=== PATIENT | male | born 2000 | race Caucasian/White ===

== ENCOUNTER 2021-09-05 16:35 | Inpatient (IN) ==
[2021-09-05 17:20] LABS: Appearance Urine Clear (Clear); Bilirubin Urine Negative (Negative); Blood Urine Negative (Negative); Color Urine Dark Yellow; Glucose Urine UA Negative (Negative); Ketones Urine Trace (Negative); Leukocyte Esterase Urine Negative (Negative); Nitrite Urine Negative (Negative); Protein Urine Negative (Negative); Specific Gravity Urine 1.028 (1.000-1.030); Urobilinogen Urine Negative (Negative); pH Urine 7.5 (4.5-7.5)
[2021-09-05 17:41] LABS: Basophils # (auto) 0.01 K/uL (0-0.2); Basophils % (auto) 0.3 %; Eosinophils # (auto) 0.01 K/uL (0-0.5); Eosinophils % (auto) 0.3 %; Hematocrit (blood only) 38.1 % (42-52); Hemoglobin 13.5 g/dL (14.0-18.0); Lymphocytes # (auto) 1.01 K/uL (1.2-3.4); Lymphocytes % (auto) 30.7 %; Mean Corpuscular Hemoglobin 30.3 pg (25-34); Mean Corpuscular Hgb Conc 35.4 g/dL (32-36); Mean Corpuscular Volume 85.6 fL (80-100); Mean Platelet Volume 11.7 fL (7.4-10.4); Monocytes # (auto) 0.25 K/uL (0.11-0.59); Monocytes % (auto) 7.6 %; Neutrophils # (auto) 2.01 K/uL (1.4-6.5); Neutrophils % (auto) 61.1 %; Platelet Count 165 K/uL (130-400); RDW Coefficient of Variation 12.2 % (11.5-14.5); RDW Standard Deviation 37.9 fL (36.4-46.3); Red Blood Count 4.45 M/uL (4.7-6.1); White Blood Count 3.29 K/uL (4.8-10.8)
[2021-09-05 17:53] LABS: Amphetamines+Metham, Urine Neg (Neg); Barbiturates, Urine Neg (Neg); Benzodiazepine, Urine Neg (Neg); Cocaine, Urine Neg (Neg); MDMA (Ecstacy), Urine Neg (Neg); Methadone, Urine Neg (Neg); Opiate, Urine Neg (Neg); Phencyclidine, Urine Neg (Neg)
[2021-09-05 18:03] LABS: Albumin Level 3.9 gm/dl (3.4-5.0); BUN Creatinine Ratio 12.4 (10-20); Creatinine Clr Calc Pharmacy 134.7 ml/min; Est GFR (African American) 107.5 ml/min; Est GFR (Non-African American) 92.7 ml/min
[2021-09-05 18:05] LABS: Acetaminophen < 2 ug/ml (10-30); Salicylate < 1.7 mg/dl (2.8-20)
[2021-09-05 18:14] LABS: Albumin Globulin Ratio 1.1 (0.9-2); Bilirubin,Total 0.7 mg/dl (0.2-1); Globulin 3.7 gm/dl (2.5-4.0); Thyroid Stimulating Hormone 0.671 uIu/ml (0.300-4.500); Total Protein 7.6 gm/dl (6.4-8.2)
--- NOTE | 2021-09-05 19:18 | Emergency Department Note ---
History of Present Illness General Chief complaint: Mental Health Evaluation Time Seen by Provider: 09/05/21 16:39 History of Present Illness Provider complaint: Mental health evaluation Onset (ago): month(s) 3 20-year-old male presents emergency department for mental health evaluation. Patient is reporting that he has been having suicidal ideation since starting his sophomore year at [employer]. Patient reports he has been under tremendous amount of stress athletically and academically. Patient states he is a plan to kill himself by taking a knife that he keeps in his room and stabbing himself to or by going downtown and jumping off a parking garage. Patient states he does not see anyone for any of his mental health problems. Patient states he has a history of depression and anxiety and is originally from [facility]. Patient states he was on Prozac however it stopped helping him so he was taken off of it by his mental health professional in [place] during his jordon year of high school. Patient reports no access to guns. No drugs or alcohol. Home Medications Medication Instructions Recorded Confirmed Type No Known Home Medications 09/05/21 09/05/21 History Allergies Allergy/AdvReac Type Severity Reaction Status Date / Time No Known Allergies Allergy Unverified 09/05/21 17:13 Past Med/Surg History Medical History Anxiety Depression No pertinent family history Surgical History No pertinent past surgical history Social History Smoking Status: Never smoker Feels Safe at Home: No Review of Systems A total of 10 systems reviewed and were otherwise negative Physical Exam Vital Signs Vital Signs - 24 hr 09/05/21 16:52 09/05/21 20:14 Temperature 36.6 C Temperature Source Oral Pulse Rate 48 L Pulse Rate [Finger] 41 L Respiratory Rate 18 14 Blood Pressure 109/74 Blood Pressure [Right Arm] 125/59 L Blood Pressure Mean 85 Blood Pressure Mean [Right Arm] 81 Pulse Oximetry 100 100 Oxygen Delivery Method Room Air Sepsis Recent Fever Within 48 Hours No Sepsis New/Unexplained Change in Mental Status No Sepsis Action Taken by Nursing No Action Required Physical Exam HENT: Exam performed. - Head: Normocephalic and atraumatic. - Right Ear: External ear normal. No mastoid tenderness. - Left Ear: External ear normal. No mastoid tenderness. - Mouth/Throat: The oropharynx is clear and moist. No trismus in the jaw. No dental abscesses or uvula swelling. No oropharyngeal exudate or tonsillar abscesses. EYES: Conjunctivae and EOM are normal. Pupils are equal, round, and reactive to light. Right eye exhibits no discharge. Left eye exhibits no discharge. No scleral icterus. NECK: Normal range of motion. Neck supple. No JVD present. No spinous process tenderness present. No carotid bruit present. No rigidity. No tracheal deviation and normal range of motion present. No Brudzinski's sign and no Kernig's sign noted. CV: Bradycardic. Rate, regular rhythm, normal heart sounds and intact distal pulses. There is no peripheral edema. Palpable radial pulses bue. PULM/CHEST: Effort normal and breath sounds normal. No respiratory distress. No stridor. He has no wheezes. He has no rales. - Chest Wall: He exhibits no tenderness. ABD: The abdomen is soft. Bowel sounds are normal. He has no distension. No mass is present. There is no tenderness. There is no rebound, no guarding, no Christopher's sign and no tenderness at McBurney's point. Rovsig negative. MUSC/SKEL: Normal range of motion. There is no peripheral edema, tenderness or deformity. LYMPH: No cervical adenopathy. NEURO: He is alert and oriented to person, place, and time. He has normal strength. No cranial nerve deficit or sensory deficit. Coordination and gait normal. GCS eye subscore is 4. GCS verbal subscore is 5. GCS motor subscore is 6. Cerebellar tests wnl. SKIN: Skin is warm and dry. He is not diaphoretic. PSYCH: Patient appears depressed. Suicidal ideation. Course Course 1639: The patient was evaluated in room A8. A complete history and physical exam was performed 0: Vital signs stable. Patient medically cleared. Patient placed in observation at this time awaiting psychiatric placement evaluation. 2030: Patient accepted to 3 S. Medical Decision Making Laboratory Data Result diagrams: 09/05/21 17:19 09/05/21 17:19 Lab Results 09/05/21 09/05/21 09/05/21 Range/Units 16:40 16:40 17:08 WBC (4.8-10.8) K/uL RBC (4.7-6.1) M/uL Hgb (14.0-18.0) g/dL Hct (42-52) % MCV (80-100) fL MCH (25-34) pg MCHC (32-36) g/dL RDW Std Deviation (36.4-46.3) fL RDW Coeff of Teri (11.5-14.5) % Plt Count (130-400) K/uL MPV (7.4-10.4) fL Immature Gran % (Auto) % Neut % (Auto) % Lymph % (Auto) % Kidder % (Auto) % Eos % (Auto) % Baso % (Auto) % Neut # (Auto) (1.4-6.5) K/uL Lymph # (Auto) (1.2-3.4) K/uL Kidder # (Auto) (0.11-0.59) K/uL Eos # (Auto) (0-0.5) K/uL Baso # (Auto) (0-0.2) K/uL Immature Gran # (Auto) (0.00-0.02) K/uL Sodium (136-145) mmol/L Potassium (3.5-5.1) mmol/L Chloride (98-107) mmol/L Carbon Dioxide (21-32) mmol/L Anion Gap (3-11) BUN (7-18) mg/dl Creatinine (0.6-1.4) mg/dl Est Cr Clr Drug Dosing ml/min Est GFR ( Amer) ml/min Est GFR (Non-Af Amer) ml/min BUN/Creatinine Ratio (10-20) Glucose (70-99) mg/dl Calcium (8.5-10.1) mg/dl Total Bilirubin (0.2-1) mg/dl AST (15-37) U/L ALT (12-78) U/L Alkaline Phosphatase (45-117) U/L Total Protein (6.4-8.2) gm/dl Albumin (3.4-5.0) gm/dl Globulin (2.5-4.0) gm/dl Albumin/Globulin Ratio (0.9-2) TSH (0.300-4.500) uIu/ml Urine Color Dark Yellow Urine Appearance Clear (Clear) Urine pH 7.5 (4.5-7.5) Ur Specific Welch 1.028 (1.000-1.030) Urine Protein Negative (Negative) Urine Glucose (UA) Negative (Negative) Urine Ketones Trace H (Negative) Urine Blood Negative (Negative) Urine Nitrite Negative (Negative) Urine Bilirubin Negative (Negative) Urine Urobilinogen Negative (Negative) Ur Leukocyte Esterase Negative (Negative) Salicylates (2.8-20) mg/dl Urine Opiates Screen Neg (Neg) Ur Methadone, Qual Neg (Neg) Acetaminophen (10-30) ug/ml Urine Barbiturates Neg (Neg) Ur Phencyclidine (PCP) Neg (Neg) U Amphetamin/Meth Scrn Neg (Neg) MDMA (Ecstasy) Screen Neg (Neg) U Benzodiazepines Scrn Neg (Neg) Ur Cocaine Metabolite Neg (Neg) U Marijuana (THC) Screen Neg (Neg) Ethyl Alcohol mg/dL (0-3) mg/dl COVID-19 Eval Order Covid19 [facility] SARS-CoV-2, RNA, NAAT (NEGATIVE) 09/05/21 09/05/21 09/05/21 Range/Units 17:08 17:19 17:19 WBC 3.29 L (4.8-10.8) K/uL RBC 4.45 L (4.7-6.1) M/uL Hgb 13.5 L (14.0-18.0) g/dL Hct 38.1 L (42-52) % MCV 85.6 (80-100) fL MCH 30.3 (25-34) pg MCHC 35.4 (32-36) g/dL RDW Std Deviation 37.9 (36.4-46.3) fL RDW Coeff of Teri 12.2 (11.5-14.5) % Plt Count 165 (130-400) K/uL MPV 11.7 H (7.4-10.4) fL Immature Gran % (Auto) 0.0 % Neut % (Auto) 61.1 % Lymph % (Auto) 30.7 % Kidder % (Auto) 7.6 % Eos % (Auto) 0.3 % Baso % (Auto) 0.3 % Neut # (Auto) 2.01 (1.4-6.5) K/uL Lymph # (Auto) 1.01 L (1.2-3.4) K/uL Kidder # (Auto) 0.25 (0.11-0.59) K/uL Eos # (Auto) 0.01 (0-0.5) K/uL Baso # (Auto) 0.01 (0-0.2) K/uL Immature Gran # (Auto) 0.00 (0.00-0.02) K/uL Sodium 137 (136-145) mmol/L Potassium 4.0 (3.5-5.1) mmol/L Chloride 106 (98-107) mmol/L Carbon Dioxide 29 (21-32) mmol/L Anion Gap 2.0 L (3-11) BUN 14 (7-18) mg/dl Creatinine 1.14 (0.6-1.4) mg/dl Est Cr Clr Drug Dosing 134.7 ml/min Est GFR ( Amer) 107.5 ml/min Est GFR (Non-Af Amer) 92.7 ml/min BUN/Creatinine Ratio 12.4 (10-20) Glucose 79 (70-99) mg/dl Calcium 9.0 (8.5-10.1) mg/dl Total Bilirubin 0.7 (0.2-1) mg/dl AST 24 (15-37) U/L ALT 23 (12-78) U/L Alkaline Phosphatase 98 (45-117) U/L Total Protein 7.6 (6.4-8.2) gm/dl Albumin 3.9 (3.4-5.0) gm/dl Globulin 3.7 (2.5-4.0) gm/dl Albumin/Globulin Ratio 1.1 (0.9-2) TSH 0.671 (0.300-4.500) uIu/ml Urine Color Urine Appearance (Clear) Urine pH (4.5-7.5) Ur Specific Welch (1.000-1.030) Urine Protein (Negative) Urine Glucose (UA) (Negative) Urine Ketones (Negative) Urine Blood (Negative) Urine Nitrite (Negative) Urine Bilirubin (Negative) Urine Urobilinogen (Negative) Ur Leukocyte Esterase (Negative) Salicylates (2.8-20) mg/dl Urine Opiates Screen (Neg) Ur Methadone, Qual (Neg) Acetaminophen (10-30) ug/ml Urine Barbiturates (Neg) Ur Phencyclidine (PCP) (Neg) U Amphetamin/Meth Scrn (Neg) MDMA (Ecstasy) Screen (Neg) U Benzodiazepines Scrn (Neg) Ur Cocaine Metabolite (Neg) U Marijuana (THC) Screen (Neg) Ethyl Alcohol mg/dL (0-3) mg/dl COVID-19 Eval Order SARS-CoV-2, RNA, NAAT NEGATIVE (NEGATIVE) 09/05/21 09/05/21 Range/Units 17:19 17:19 WBC (4.8-10.8) K/uL RBC (4.7-6.1) M/uL Hgb (14.0-18.0) g/dL Hct (42-52) % MCV (80-100) fL MCH (25-34) pg MCHC (32-36) g/dL RDW Std Deviation (36.4-46.3) fL RDW Coeff of Teri (11.5-14.5) % Plt Count (130-400) K/uL MPV (7.4-10.4) fL Immature Gran % (Auto) % Neut % (Auto) % Lymph % (Auto) % Kidder % (Auto) % Eos % (Auto) % Baso % (Auto) % Neut # (Auto) (1.4-6.5) K/uL Lymph # (Auto) (1.2-3.4) K/uL Kidder # (Auto) (0.11-0.59) K/uL Eos # (Auto) (0-0.5) K/uL Baso # (Auto) (0-0.2) K/uL Immature Gran # (Auto) (0.00-0.02) K/uL Sodium (136-145) mmol/L Potassium (3.5-5.1) mmol/L Chloride (98-107) mmol/L Carbon Dioxide (21-32) mmol/L Anion Gap (3-11) BUN (7-18) mg/dl Creatinine (0.6-1.4) mg/dl Est Cr Clr Drug Dosing ml/min Est GFR ( Amer) ml/min Est GFR (Non-Af Amer) ml/min BUN/Creatinine Ratio (10-20) Glucose (70-99) mg/dl Calcium (8.5-10.1) mg/dl Total Bilirubin (0.2-1) mg/dl AST (15-37) U/L ALT (12-78) U/L Alkaline Phosphatase (45-117) U/L Total Protein (6.4-8.2) gm/dl Albumin (3.4-5.0) gm/dl Globulin (2.5-4.0) gm/dl Albumin/Globulin Ratio (0.9-2) TSH (0.300-4.500) uIu/ml Urine Color Urine Appearance (Clear) Urine pH (4.5-7.5) Ur Specific Welch (1.000-1.030) Urine Protein (Negative) Urine Glucose (UA) (Negative) Urine Ketones (Negative) Urine Blood (Negative) Urine Nitrite (Negative) Urine Bilirubin (Negative) Urine Urobilinogen (Negative) Ur Leukocyte Esterase (Negative) Salicylates < 1.7 L (2.8-20) mg/dl Urine Opiates Screen (Neg) Ur Methadone, Qual (Neg) Acetaminophen < 2 L (10-30) ug/ml Urine Barbiturates (Neg) Ur Phencyclidine (PCP) (Neg) U Amphetamin/Meth Scrn (Neg) MDMA (Ecstasy) Screen (Neg) U Benzodiazepines Scrn (Neg) Ur Cocaine Metabolite (Neg) U Marijuana (THC) Screen (Neg) Ethyl Alcohol mg/dL < 3.0 (0-3) mg/dl COVID-19 Eval Order SARS-CoV-2, RNA, NAAT (NEGATIVE) MDM Narrative Observation note Indication: Psych eval/placement Patient, with depression, anxiety was first seen at 1639 hrs and the observation time began at 1730 hrs and was necessary in order to have psych evaluation completed . Upon re-evaluation, 3 hours of observation revealed that the patien t should be admitted to 3 S. Disposition date and time September 05, [id number]. Impression & Plan Depression with suicidal ideation Discharge Plan Visit Data Chief Complaint: Mental Health Evaluation ED Provider: Artemio Randle Discharge Problem: Depression with suicidal ideation Patient Disposition: Admitted As Inpatient Discharge Instructions Interventions: ED Discharge Assessment Last Done: 09/05/21 20:22 Forms Stand Alone Forms: My [facility], Suicide Prevention Resources Prescriptions Prescriptions: No Action No Known Home Medications RF: 0 Referrals [facility] [Primary Care Provider[facility] -
[2021-09-05] MEDS ORDERED: BISMUTH SUBSALICYLATE LIQD 236 ML PO PRN (19:58)
[2021-09-05] MEDS ORDERED: SODIUM CHLORIDE 0.65% NA SOLN 45 ML (OCEAN) PRN (19:58)
[2021-09-05] MEDS ORDERED: hydrOXYzine HCl 25 MG TAB PO PRN ×2 (19:58)
[2021-09-05] MEDS ORDERED: ACETAMINOPHEN 325 MG TAB PO PRN (19:58)
[2021-09-05] MEDS ORDERED: ALUMINUM/MAGNESIUM SUSP 30 ML UDC PO PRN (19:58)
[2021-09-05] MEDS ORDERED: MAGNESIUM HYDROXIDE SUSP 30 ML UDC PO PRN (19:58)
[2021-09-06] MEDS ORDERED: MELATONIN 3 MG TAB PO PRN (11:11)
--- NOTE | 2021-09-06 11:12 | History & Physical ---
Date of Service September 06, 2021 Impression / Recommendations Impression The patient is a 20 year old with a history of depression, anxiety, and eating disorder who was admitted for worsening depression, SI with plan and restrictive eating. The patient is deemed unstable and requires psychiatric hospitalization for diagnostic clarification, safety and stabilization, medication management and development of further coping skills. Diagnostically consistent with MDD, MATTHEW, PTSD as well as atypical eating disorder. 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 Given recent weight loss and severe calorie restriction will involve hospitalist and dietary to assess if concern for refeeding syndrome and necessary cardiac monitoring. Focus will initially be on safely encouraging increased caloric intake and treatment of anorexia. Should strongly consider inpatient specialized eating disorder treatment program given the severity of his anorexia. Additionally he would benefit from starting medication to treat his depression, PTSD, and anxiety. Discussed potential medication options including mirtazapine to help with sleep and appetite but he is not interested in this nor any SSRIs nor any other medications at this time. Will continue to discuss potential medication and treatment options. Encouragingly he is desiring of treatment for his eating disorder and willing to engage in therapy. (1) Atypical eating disorder: (2) Depression with suicidal ideation: (3) Anxiety: (4) MDD (major depressive disorder), recurrent episode, moderate: (5) Bradycardia: (6) Post traumatic stress disorder (PTSD): 09/06/21: -Consult hospitalist, dietary due to concern for refeeding syndrome and bradycardia -EKG -Vitals qshift -monitor Is & Os -blind daily weights -melatonin 3 mg qhs prn for sleep which he consented to -Diet calorie limit 1200 roberto per day, goal of 1-2 L fluid per day per hospitalist recommendations -Spoke with his team physician, Dr. Tabares, and team athletic monitor Kirk Garzon who he provided ROIs for 09/05/21: The patient was admitted to the [facility] ([facility] mental health unit) on q15 min checks (behavioral with suicide precautions) for safety. The patient will participate in group, recreational, and milieu therapies and will be offered additional individual and family sessions as clinically appropriate. Inventory Assets Strengths: motivated for treatment, full-time student Needs: outpatient providers, stabilization, medication management, increased coping skills Risk Factors Assessment Male: Yes : No Do You Have Access To A Gun?: No Health Problems: No Mental Health Diagnoses: Yes Substance Use Disorders: No Previous Attempt: No Family History of Suicide: Yes Previous Psychiatric Hospitalization: No Hopelessness: Yes Protective Factors Assessment Employed: No Stable Relationships: Yes Supportive Family: Yes Psychiatric History Identifying Data BHAVESH BENITEZ is a 20-year-old man and [employer] sophmore on an athletic scholarship who currently lives on campus, has a history of depression and anxiety, and was admitted on 09/05/21 19:58 on a 201 voluntary commitment for worsening depression, weight loss and SI with plans of jumping from a parking garage or stabbing himself with a knife. Chief Complaint "My mental health has been deteriorating faster than usual". History of Present Illness Bhavesh presents for psychiatric admission for worsening depression, SI with plans and restrictive eating. Bhavesh describes a long history of depression, starting his sophomore year of high school, with intermittent SI starting at that time as well. 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 Last year SI occurred about every other day with thoughts lasting about 30 min to 1 hour. At that time he would often think about jumping from a parking garage near his on campus apartment and would walk to the top every other day to contemplate this but felt he had enough reasons to live to not act on these suicidal urges. Starting this summer he feels his depression and SI has intensified in the context of feeling more pressure from football, particularly in regard to needing to gain more weight. He notes that at one point he was told he could be kicked off the team if he could not gain enough weight and this caused significant stress as he would be financially unable to continue his education if this occurred. At that time he at acutely worsening SI and that night got out a knife and was pacing and considering acting on his SI. Since June he's been having SI "all day" with thoughts of dying by jumping from the parking garage or stabbing himself in the stomach or chest with a knife he keeps next to his bed. He stopped going to the parking garage as he feared he may act on his SI and he notes increased fatigue making it harder to want to walk there. He endorses current depressive symptoms of low mood, hopelessness, helplessness, worthlessness, decreased sleep, decreased energy, has been feeling more hungry due to increased nutritional restriction, and decreased interest. He does still enjoy making and listening to music. In terms of his eating he notes that is a big concern and that he recognizes he needs to eat more but weight gain or increased nutritional intake causes him significant distress. He recalls always wanting to eat healthy and categorizing foods as "good or bad" but that he has become more strict over time. After starting at [employer] he was able to gain some weight as he put on muscle and eat more but then he felt guilt and hated the way his body looked causing him to begin purging and doing excessive exercise on top of his twice daily athletic training. He notes that athletic trainers and others with the football program noticed he was losing weight and he deflected by saying he was going Vegan as a way to restrict and feel in control. Over the last two months he's been restricting more and identifies a goal of eating less than 1,000 calories per day. His goal day would be to eat only applesauce which he does on some days. Most days he estimates he has been consuming between 1,200-1,400 calories consisting of 4 granola bars and 1-2 yogurts. On these days he will then exercise excessively by running after evening practice to try to burn off extra calories. No laxative use nor any current purging. He denies feeling dizzy or weak at practice but has experienced dizziness when standing up suddenly at times. He would like to change his eating but feels powerless to do so as it makes him feel horrible about how he looks and feels he still needs to lose more weight. He is estimated to have lost between 40-50 lbs over the last 3 months. He also endorses body obsessions such as having to suck in his stomach multiple times until he appears think enough in the mirror to be able to leave the apartment each day. He identifies strong concerns about body image and low self- esteem. Psychiatric ROS notable for: possible hypomanic episodes-history of brief per iods of elevated mood (2-3 days) during high school when he required little sleep, had increased energy, was more talkative, had increased sex drive, and got in trouble in class for interrupting or talking more ut after a few days he would "crash" and sleep a lot and never required hospitalization or had legal consequences. Hx trauma and PTSD symptoms of flashbacks, night-terrors, avoidance and hypervigilance. Endorses anxiety, history panic attack last a few months ago. No hx OCD. No hx psychosis. Past Psychiatric History Previous Psych History: depression, anxiety Current Psychiatric Diagnosis: MDD Outpatient Services: had [facility] intake, was set up to see [facility] program and local therapist focused on eating disorders Previous Psych Admissions: none Do You Have Access To A Gun?: No History of Previous Suicide Attempt: No Describe Attempts in the Past: None Past Medication Trials: fluoxetine (unknown dose) for 3-4 months in highschool. M[place]leary it didn't help mood and made him feel "numb" Past Head Trauma/Neuro History History of Concussion/Seizure: No (plays football so possibilty for concussions) Allergies Allergy/AdvReac Type Severity Reaction Status Date / Time No Known Allergies Allergy Unverified 09/05/21 17:13 Home Medications Medication Instructions Recorded Confirmed Type No Known Home Medications 09/05/21 09/05/21 History Family History Family History of: Depression (maternal aunt and sister) and Suicide Completion (maternal aunt) Alcohol History Hx of Alcohol Use Over the Past 12 Months: No AUDIT Total Score: 0 Smoking Use Have You Smoked or Used Tobacco Products in the Last 30 Days: No Smoking Status: Never smoker Substance History Hx of Prescription Med Misuse Over the Past 12 Months: No Hx of Over the Counter Med Misuse Over the Past 12 Months: No Hx of Inhalent Misuse Over the Past 12 Months: No Hx of Organic Substance Use Over the Past 12 Months: No Hx of Illegal Substances/Street Drug Use Over Past 12 Months: No Problems as a Result of Past Substance Use: None Identified Personal History Living Arrangements: Apartment Childhood: raised in [place], youngest of 5 siblings, did well academically in school. Parents -father lives in [place] and mother lives in [place]. He feels his mother and two of his sisters are supports for him. Highest Grade Completed: High School Graduate Highest Grade Completed Comment: s Employment Status: Student Marital Status: Single Beliefs That Will Affect Care: None Current Legal Problems: No Hx Legal Problems: No Hx Traumatic Life Events: Yes Patient History Medical History (Updated 09/06/21 @ 17:01 by Melida Shipley MD) Anxiety Depression Depression with suicidal ideation MDD (major depressive disorder), recurrent episode, moderate No pertinent family history Surgical History No pertinent past surgical history Social History Smoking Status: Never smoker Preferred Language: Botswanan Communication Ability: Effective [employer] Required: No Beliefs That Will Affect Care: None Feels Safe at Home: No Assistive Devices: None Review of Systems Review of Systems: All systems reviewed & are unremarkable except as noted in HPI & below Physical Exam Psychiatric: Orientation: alert and oriented x 3 Apperance: appropriately dressed and appropriately groomed Eye Contact: good eye contact Motor Behavior: steady gait and station and no abnormal motor movements Speech: normal rate/rhythm/volume of speech Affect: + flat affect Mood: + depressed mood and + anxious mood Thought Process: goal directed thought process Thought Content: reality based without delusions Suicidal Thoughts: denies suicidal intent; + reports suicidal thoughts and + reports suicidal plan Homicidal Thoughts: denies homicidal thoughts Hallucinations: no auditory hallucinations and no visual hallucinations Cognition: recent memory grossly intact, remote memory grossly intact, attention grossly intact and language grossly intact Estimated Intelligence: consistent with education level Insight: + fair insight Judgement: + fair judgement Vital Signs (Past 24 Hours): Last Vital Signs Temp 36.8 C 09/06/21 07:04 Pulse 34 L 09/06/21 07:04 Resp 17 09/06/21 07:04 BP 98/56 L 09/06/21 07:06 Pulse Ox 99 09/06/21 07:04 Exam Statement: A physical exam was performed in the ED by Dr. Randle for the purposes of medical clearance. I accept that physical as correct and adequate for the purposes of the inpatient physical exam. Results & Data (U) Laboratory Results Laboratory Results - last 24 hr 09/05/21 09/05/21 09/05/21 16:40 16:40 17:08 WBC RBC Hgb Hct MCV MCH MCHC RDW Std Deviation RDW Coeff of Teri Plt Count MPV Immature Gran % (Auto) Neut % (Auto) Lymph % (Auto) Ashley % (Auto) Eos % (Auto) Baso % (Auto) Neut # (Auto) Lymph # (Auto) Ashley # (Auto) Eos # (Auto) Baso # (Auto) Immature Gran # (Auto) Sodium Potassium Chloride Carbon Dioxide Anion Gap BUN Creatinine Est Cr Clr Drug Dosing Est GFR ( Amer) Est GFR (Non-Af Amer) BUN/Creatinine Ratio Glucose Calcium Total Bilirubin AST ALT Alkaline Phosphatase Total Protein Albumin Globulin Albumin/Globulin Ratio TSH Urine Color Dark Yellow Urine Appearance Clear Urine pH 7.5 Ur Specific Brayton 1.028 Urine Protein Negative Urine Glucose (UA) Negative Urine Ketones Trace H Urine Blood Negative Urine Nitrite Negative Urine Bilirubin Negative Urine Urobilinogen Negative Ur Leukocyte Esterase Negative Salicylates Urine Opiates Screen Neg Ur Methadone, Qual Neg Acetaminophen Urine Barbiturates Neg Ur Phencyclidine (PCP) Neg U Amphetamin/Meth Scrn Neg MDMA (Ecstasy) Screen Neg U Benzodiazepines Scrn Neg Ur Cocaine Metabolite Neg U Marijuana (THC) Screen Neg Ethyl Alcohol mg/dL COVID-19 Eval Order Covid19 IDNow atMMAC SARS-CoV-2, RNA, NAAT 09/05/21 09/05/21 09/05/21 17:08 17:19 17:19 WBC 3.29 L RBC 4.45 L Hgb 13.5 L Hct 38.1 L MCV 85.6 MCH 30.3 MCHC 35.4 RDW Std Deviation 37.9 RDW Coeff of Teri 12.2 Plt Count 165 MPV 11.7 H Immature Gran % (Auto) 0.0 Neut % (Auto) 61.1 Lymph % (Auto) 30.7 Ashley % (Auto) 7.6 Eos % (Auto) 0.3 Baso % (Auto) 0.3 Neut # (Auto) 2.01 Lymph # (Auto) 1.01 L Ashley # (Auto) 0.25 Eos # (Auto) 0.01 Baso # (Auto) 0.01 Immature Gran # (Auto) 0.00 Sodium 137 Potassium 4.0 Chloride 106 Carbon Dioxide 29 Anion Gap 2.0 L BUN 14 Creatinine 1.14 Est Cr Clr Drug Dosing 134.7 Est GFR ( Amer) 107.5 Est GFR (Non-Af Amer) 92.7 BUN/Creatinine Ratio 12.4 Glucose 79 Calcium 9.0 Total Bilirubin 0.7 AST 24 ALT 23 Alkaline Phosphatase 98 Total Protein 7.6 Albumin 3.9 Globulin 3.7 Albumin/Globulin Ratio 1.1 TSH 0.671 Urine Color Urine Appearance Urine pH Ur Specific Brayton Urine Protein Urine Glucose (UA) Urine Ketones Urine Blood Urine Nitrite Urine Bilirubin Urine Urobilinogen Ur Leukocyte Esterase Salicylates Urine Opiates Screen Ur Methadone, Qual Acetaminophen Urine Barbiturates Ur Phencyclidine (PCP) U Amphetamin/Meth Scrn MDMA (Ecstasy) Screen U Benzodiazepines Scrn Ur Cocaine Metabolite U Marijuana (THC) Screen Ethyl Alcohol mg/dL COVID-19 Eval Order SARS-CoV-2, RNA, NAAT NEGATIVE 09/05/21 09/05/21 17:19 17:19 WBC RBC Hgb Hct MCV MCH MCHC RDW Std Deviation RDW Coeff of Teri Plt Count MPV Immature Gran % (Auto) Neut % (Auto) Lymph % (Auto) Ashley % (Auto) Eos % (Auto) Baso % (Auto) Neut # (Auto) Lymph # (Auto) Ashley # (Auto) Eos # (Auto) Baso # (Auto) Immature Gran # (Auto) Sodium Potassium Chloride Carbon Dioxide Anion Gap BUN Creatinine Est Cr Clr Drug Dosing Est GFR ( Amer) Est GFR (Non-Af Amer) BUN/Creatinine Ratio Glucose Calcium Total Bilirubin AST ALT Alkaline Phosphatase Total Protein Albumin Globulin Albumin/Globulin Ratio TSH Urine Color Urine Appearance Urine pH Ur Specific Brayton Urine Protein Urine Glucose (UA) Urine Ketones Urine Blood Urine Nitrite Urine Bilirubin Urine Urobilinogen Ur Leukocyte Esterase Salicylates < 1.7 L Urine Opiates Screen Ur Methadone, Qual Acetaminophen < 2 L Urine Barbiturates Ur Phencyclidine (PCP) U Amphetamin/Meth Scrn MDMA (Ecstasy) Screen U Benzodiazepines Scrn Ur Cocaine Metabolite U Marijuana (THC) Screen Ethyl Alcohol mg/dL < 3.0 COVID-19 Eval Order SARS-CoV-2, RNA, NAAT Current Inpatient Medications Current Inpatient Medications: Current Inpatient Medications Acetaminophen (Acetaminophen 325 Mg Tab) 650 mg PO Q4H PRN PRN Reason: Headache or Minor Fever Stop: 10/05/21 19:57 Al Hydrox/Mg Hydrox/Simethicone (Aluminum/Magnesium Susp 30 Ml Udc) 30 ml PO Q4H PRN PRN Reason: GI Upset Stop: 10/05/21 19:57 Bismuth Subsalicylate (Bismuth Subsalicylate Liqd 236 Ml) 15 ml PO PRN PRN PRN Reason: Loose Stool Stop: 10/05/21 19:57 Fish Oil (Panther-3 (Purified Fish Oil) 1 Gm Cap) 1 gm PO QAM GLORIA Stop: 10/07/21 08:59 Hydroxyzine HCl (Hydroxyzine Hcl 25 Mg Tab) 50 mg PO HSZ PRN PRN Reason: Insomnia Stop: 10/05/21 19:57 Hydroxyzine HCl (Hydroxyzine Hcl 25 Mg Tab) 25 mg PO Q4H PRN PRN Reason: Anxiety Stop: 10/05/21 19:57 Magnesium Hydroxide (Magnesium Hydroxide Susp 30 Ml Udc) 30 ml PO DAILY PRN PRN Reason: Constipation Stop: 10/05/21 19:57 Melatonin (Melatonin 3 Mg Tab) 3 mg PO HS PRN PRN Reason: Sleep Stop: 10/06/21 11:10 Sodium Chloride (Sodium Chloride 0.65% Na Soln 45 Ml ([place])) 1 - 2 sprays NA PRN PRN PRN Reason: Nasal Dryness/Congestion Stop: 10/05/21 19:57
[2021-09-06] MEDS ORDERED: CEROVITE ADV FORMULA TAB PO SCH (12:00)
[2021-09-06 13:27] LABS: Magnesium 2.4 mg/dl (1.8-2.4); Phosphorus 2.9 mg/dl (2.5-4.9)
[2021-09-06] MEDS: THIAMINE HCL 100 MG TAB PO SCH ×2 (14:01→20:06)
--- NOTE | 2021-09-06 14:03 | Electrocardiogram Report ---
Test Reason : Blood Pressure : / mmHG Vent. Rate : 038 BPM Atrial Rate : 038 BPM P-R Int : 132 ms QRS Dur : 102 ms QT Int : 522 ms P-R-T Axes : 087 084 048 degrees QTc Int : 414 ms Marked sinus bradycardia Abnormal ECG No previous ECGs available Confirmed by Clemente Bruno ([id number] on 09/06/2021 2:02:32 PM Referred By: REFERRED SELF Confirmed By:Josse Bruno
--- NOTE | 2021-09-06 14:08 | Hospitalist Consultation ---
Date of Consultation September 06, 2021 Assessment & Plan (1) Disordered eating: DX and evaluation defer to psych - do support inpatient therapy for such - As above- 12KCAL/KG/24 hours of intake- This would be 1128 KCals per day - support with Thiamine 200mg PO BID- can increase dose and frequency to TID as needed - K, MG, PO4, Glucose monitoring- currently all stable - Notify Hospitalist director of flight operations for any encephalopathy and/or abnormal electrolytes - ECG daily - Trace Ketones in urine - B12/Folate/Iron studies added in morning labs with electrolytes (2) Bradycardia: As above- likely normally in the lower range but this rate is likely cu rrently compounded by eating disorder - asymptomatic- as above will likely increase with nutritional intake (3) Depression with suicidal ideation: Defer DX and therapy to psych - do feel that with this DX and eating disorder that he would benefit staying on psych unit for support and calorie counts (4) Abnormal weight loss: As above- support, calorie counts, intake monitoring in supportive care environment - follow - refeeding risk as outlined above (5) Severe protein-calorie malnutrition: (6) Leukopenia: (7) Left ventricular dilatation: Supervising Physician Co-Signing Physician Notes Attending Attestation & Consult Note - Pt seen & examined, chart reviewed, care plan d/w ARABELLA Murillo. I agree w/ the de la garza components of his documentation. Pleasant 20yo AA male admitted to the MHU at [facility] due to major depression with suicidal ideation. Following admission it has become apparent that he suffers from anorexia. He has severely restricted his diet in the last few months leading to 20-25 pounds of weight loss. During his time in the MHU he has been noted to have HRs in the 30s at rest. He c/o dizziness/lightheadedness with blurry vision when he stands. Denies cp, dyspnea, palpitations or prior syncope. PMH/PSH/allergies/meds/sochx/famhx - reviewed Vitals - orthostatic BPs ++; bradycardic with HRs 30s; o2 sats wnl; RR wnl; temp wnl gen - very tall, thin, muscle wasting of facial muscles mouth - MM pasty neck - no JVD heart - caty, s1 s2, 1/6 KAROL RUSB; radial pulses 2+ b/l lungs - CTA b/l abd - soft NT ND BS+ ext - no edema, pulses 2+ b/l labs reviewed EKG reviewed A/P: 1. MDD with suicidal ideation 2. Anorexia 3. Severe protein calorie malnutrition 4. Severe sinus bradycardia 5. Orthostasis 6. Leukopenia 7. Echo with preserved EF but dilated LV (mild) 8. At risk of refeeding syndrome MVI, thiamine supplementation Nutrition consult Check Fe studies, B12, folate, 25-OH vit D Mild cardiomyopathy - 2nd to #2 ?? Thiamine def? Post-viral? other? 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 Patient with past medical history of depression and suicidal ideations, which is why he is now admitted to the Psych unit for support. Patient upon his intake evaluation it was noted that he was avoiding/limiting his nutrition intake. His admission ECG has his HR in 30s with QTC of 414. Patient was evaluated in the psych unit. Reviewing the patient history with him is significant for weight loss of 20 pounds over the last month, and over the past 2 months he has been restricting his eating. His dietary recall for the past 2 weeks he endorses 4 granola bars, and 2 yogurts. He continues to practice and do school work- he does get dizzy when standing for a period of time and has some periods of vision getting fuzzy without any visual field deficits or tunnel vision. He denies any syncope. The patient BMI is 24, and is mostly lean muscle mass. The patient denies any eating habits of binging and/or purging. The patient's eating that he is expressing is concerning for underlying disease. The patient states that he is struggling with school, athletics, and body image and this is why he is not eating. He currently feels safe and that his suicidal ideations are gone, and he is hungry and is interested in support at this time. Recs: With his bradycardia I would expect his HR to be in the 50-60s with age and athleticism, however this is also compounded by his eating habits and likely body ability to conserve energy. Will obtain ECHO to rule out any MVP as this may occur in prolonged anorexia. No murmur or split heart sounds heard. His HR should gradually increase with psychological support and monitored caloric intake and calorie counts. Do not feel removing him from supportive environment for telemetry monitoring will provide any benefit at this time unless ECHO reveals MVP. Will recommend restricted KCALs to 12Kcal/KG/24 hours for the first 48-72 hours and then increase gradually to 15-18-20. Add Thiamine, MVI, will monitor his electrolytes daily, for refeeding syndrome. I agree with attempting to inpatient support at eating disorder center if continues to struggle. Humphrey is not vaccinated and his COVID test on admssion is: NEGATIVE Allergies Allergy/AdvReac Type Severity Reaction Status Date / Time No Known Allergies Allergy Unverified 09/05/21 17:13 Home Medications Medication Instructions Recorded Confirmed Type No Known Home Medications 09/05/21 09/05/21 History Patient History Medical History (Updated 09/06/21 @ 21:02 by Óscar Paredes) Anxiety Depression Depression with suicidal ideation MDD (major depressive disorder), recurrent episode, moderate No pertinent family history Surgical History No pertinent past surgical history Family History (Updated 09/06/21 @ 20:51 by Óscar Paredes) Other No pertinent family history Social History (Updated 09/06/21 @ 20:51 by Óscar Paredes) Smoking Status: Never smoker Preferred Language: Afghan Communication Ability: Effective Bandage Wrapping Machine Operator Required: No Beliefs That Will Affect Care: None marital status: Single current occupational status: student other: [employer] student; plays on football team Feels Safe at Home: No Assistive Devices: None Review of Systems Review of Systems: REVIEW OF SYSTEMS: Constitutional: No fever, sweats or chills Eyes: (+) fuzzy vision with stress, No diplopia, or visual field deficits ENT: normal hearing, no trouble swallowing Respiratory: No cough, sputum, dyspnea at rest or on exertion Cardiovascular: (+) dizziness when standing long time, No chest pain, tightness or palpitations Abdomen: No pain, nausea, vomiting, diarrhea or constipation Musculoskeletal: No joint pain, calf pain, swelling Neurologic: No weakness, numbness/tingling, or balance problems Psychiatric: No anxiety or depression Skin: No rash or itch Physical Exam Physical Exam: PHYSICAL EXAM: General: awake, alert, no apparent distress, calm and cooperative Head: Normocephalic, atraumatic ENT: PERRL, EOMI, no pharyngeal exudate, mucous membranes dry Neuro: AAO x 3, speech clear and appropriate, strength intact bilaterally 5/5, sensation intact and equal all extremities and dermatomes, Chest: equal rise and fall of the chest, no accessory muscle use, no heaves or thrills, Clear to auscultation, on room air, Cardiac: Regular rate and rhythm, slow HR- checked with vitals machine HR 35, skin warm dry, cap refill <3 seconds, peripheral pulses +2 no JVD, no murmur, no edema GI: NABS x 4 quadrants, soft, nontender to palpation, no rebound, guarding or tenderness : Spontaneously voiding, no pain, no CVA tenderness, Extremities: Normal inspection, no peripheral edema or erythema, calfs nontender to palpation, nails appear brittle Psych: quiet but appropriate and does laugh and show appropriate emotion and concern Skin: no rash or erythema Results & Data Results & Data ([facility]) Vital Signs (Past 12 Hours) Vital Signs Temp Pulse Resp BP Pulse Ox 09/06/21 07:06 98/56 L 09/06/21 07:04 36.8 C 34 L 17 103/60 99 Laboratory Results Abnormal lab results 09/05/21 09/05/21 09/05/21 Range/Units 16:40 17:19 17:19 WBC 3.29 L (4.8-10.8) K/uL RBC 4.45 L (4.7-6.1) M/uL Hgb 13.5 L (14.0-18.0) g/dL Hct 38.1 L (42-52) % MPV 11.7 H (7.4-10.4) fL Lymph # (Auto) 1.01 L (1.2-3.4) K/uL Anion Gap 2.0 L (3-11) Urine Ketones Trace H (Negative) Salicylates (2.8-20) mg/dl Acetaminophen (10-30) ug/ml 09/05/21 Range/Units 17:19 WBC (4.8-10.8) K/uL RBC (4.7-6.1) M/uL Hgb (14.0-18.0) g/dL Hct (42-52) % MPV (7.4-10.4) fL Lymph # (Auto) (1.2-3.4) K/uL Anion Gap (3-11) Urine Ketones (Negative) Salicylates < 1.7 L (2.8-20) mg/dl Acetaminophen < 2 L (10-30) ug/ml Medications Administered Multivitamins/Minerals (Cerovite Adv Formula Tab) 1 tab PO QAM GLORIA Stop: 10/06/21 11:59 Last Admin: 09/06/21 14:01 Dose: 1 tab Documented by: [id number] Thiamine HCl (Thiamine Hcl 100 Mg Tab) 200 mg PO BID [facility] Stop: 10/06/21 11:59 Last Admin: 09/06/21 14:01 Dose: 200 mg Documented by: [id number] ECG Additional Comments: Vent. Rate : 038 BPM Atrial Rate : 038 BPM P-R Int : 132 ms QRS Dur : 102 ms QT Int : 522 ms P-R-T Axes : 087 084 048 degrees QTc Int : 414 ms Marked sinus bradycardia Abnormal ECG No previous ECGs available PG Care Time/CCT Total # of Minutes Spent Total Time Spent with Patient: Total time spent is greater than 50% in coordination of care (as documented) at patient's floor/unit and/or counseling patient: Coding Level of Care Code 95279 Inpt Consult Level 5 Diagnoses Disordered eating F50.9 Bradycardia R00.1 Depression with suicidal ideation F32.A; R45.851 Abnormal weight loss R63.4 Severe protein-calorie malnutrition E43 Leukopenia D72.819 Left ventricular dilatation I51.7
--- NOTE | 2021-09-06 16:38 | XCELERA ---
[id number]
[2021-09-06 18:24] LABS: BUN Creatinine Ratio 14.6 (10-20); Calcium 9.3 mg/dl (8.5-10.1); Creatinine Clr Calc Pharmacy 118.2 ml/min; Est GFR (African American) 91.7 ml/min; Est GFR (Non-African American) 79.1 ml/min; Magnesium 2.3 mg/dl (1.8-2.4)
--- NOTE | 2021-09-06 19:53 | Discharge Summary ---
Date of Service September 06, 2021 History of Present Illness Bhavesh presents for psychiatric admission for worsening depression, SI with plans and restrictive eating. Bhavesh describes a long history of depression, starting his sophomore year of high school, with intermittent SI starting at that time as well. 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 Last year SI occurred about every other day with thoughts lasting about 30 min to 1 hour. At that time he would often think about jumping from a parking garage near his on campus apartment and would walk to the top every other day to contemplate this but felt he had enough reasons to live to not act on these suicidal urges. Starting this summer he feels his depression and SI has intensified in the context of feeling more pressure from football, particularly in regard to needing to gain more weight. He notes that at one point he was told he could be kicked off the team if he could not gain enough weight and this caused significa nt stress as he would be financially unable to continue his education if this occurred. At that time he at acutely worsening SI and that night got out a knife and was pacing and considering acting on his SI. Since June he's been having SI "all day" with thoughts of dying by jumping from the parking garage or stabbing himself in the stomach or chest with a knife he keeps next to his bed. He stopped going to the parking garage as he feared he may act on his SI and he notes increased fatigue making it harder to want to walk there. He endorses current depressive symptoms of low mood, hopelessness, helplessness, worthlessness, decreased sleep, decreased energy, has been feeling more hungry due to increased nutritional restriction, and decreased interest. He does still enjoy making and listening to music. In terms of his eating he notes that is a big concern and that he recognizes he needs to eat more but weight gain or increased nutritional intake causes him significant distress. He recalls always wanting to eat healthy and categorizing foods as "good or bad" but that he has become more strict over time. After starting at [employer] he was able to gain some weight as he put on muscle and eat more but then he felt guilt and hated the way his body looked causing him to begin purging and doing excessive exercise on top of his twice daily athletic training. He notes that athletic trainers and others with the football program noticed he was losing weight and he deflected by saying he was going Vegan as a way to restrict and feel in control. Over the last two months he's been restricting more and identifies a goal of eating less than 1,000 calories per day. His goal day would be to eat only applesauce which he does on some days. Most days he estimates he has been consuming between 1,200-1,400 calories consisting of 4 granola bars and 1-2 yogurts. On these days he will then exercise excessively by running after evening practice to try to burn off extra calories. No laxative use nor any current purging. He denies feeling dizzy or weak at practice but has experienced dizziness when standing up suddenly at times. He would like to change his eating but feels powerless to do so as it makes him feel horrible about how he looks and feels he still needs to lose more weight. He is estimated to have lost between 40-50 lbs over the last 3 months. He also endorses body obsessions such as having to suck in his stomach multiple times until he appears think enough in the mirror to be able to leave the apartment each day. He identifies strong concerns about body image and low self-esteem. Psychiatric ROS notable for: possible hypomanic episodes-history of brief periods of elevated mood (2-3 days) during high school when he required little sleep, had increased energy, was more talkative, had increased sex drive, and got in trouble in class for interrupting or talking more ut after a few days he would "crash" and sleep a lot and never required hospitalization or had legal co nsequences. Hx trauma and PTSD symptoms of flashbacks, night-terrors, avoidance and hypervigilance. Endorses anxiety, history panic attack last a few months ago. No hx OCD. No hx psychosis. Physical Exam Vital Signs (Past 24 Hours) Last Vital Signs Temp 36.8 C 09/06/21 07:04 Pulse 59 L 09/06/21 17:46 Resp 18 09/06/21 17:46 BP 107/61 09/06/21 17:46 Pulse Ox 100 09/06/21 17:46 See admission H&P and DOD summary. Principal Diagnosis Major Depressive Disorder, Atypical Eating Disorder Psychiatric Data Patient was admitted on the evening of 09/05/21 for depression with SI. On morning of admission assessment, 09/06/21, he was bradycardic and extent of weight loss and recent caloric restriction raised concerns for potential refeeding syndrome and cardiac arrhythmias. Hospitalist service was consulted and following cardiac echo determination was made that patient requires telemetry monitoring so he was transferred to the medical service on the evening on 09/06/21. He remains in need of inpatient psychiatric hospitalization once he is medically stabilized. Day of Discharge Assessment Taken from H&P assessment 8 hours ago: Orientation: alert and oriented x 3 Apperance: appropriately dressed and appropriately groomed Eye Contact: good eye contact Motor Behavior: steady gait and station and no abnormal motor movements Speech: normal rate/rhythm/volume of speech Affect: + flat affect Mood: + depressed mood and + anxious mood Thought Process: goal directed thought process Thought Content: reality based without delusions Suicidal Thoughts: denies suicidal intent; + reports suicidal thoughts and + reports suicidal plan Homicidal Thoughts: denies homicidal thoughts Hallucinations: no auditory hallucinations and no visual hallucinations Cognition: recent memory grossly intact, remote memory grossly intact, attention grossly intact and language grossly intact Estimated Intelligence: consistent with education level Insight: + fair insight Judgement: + fair judgement Transition of Care Transition Of Care Record: was reviewed with the patient Advance Directives Advance Directives Information Provided: Yes Advance Directives: No Mental Health Advance Directive: No Advance Directives on File: No Living Will: No Power of Key Cutter: No Advance Directives Reason:: Declines as Mental Health Visit. Risk Factors Assessment Male: Yes : No Do You Have Access To A Gun?: No Health Problems: No Mental Health Diagnoses: Yes Substance Use Disorders: No Previous Attempt: No Family History of Suicide: Yes Previous Psychiatric Hospitalization: No Hopelessness: Yes Protective Factors Assessment Employed: No Stable Relationships: Yes Supportive Family: Yes Discharge Data Consultations 09/06/21 11:08 Consult Nutrition Routine 09/06/21 14:25 Consult Hospitalist Routine Lab Results 09/05/21 09/05/21 09/05/21 16:40 16:40 17:08 WBC RBC Hgb Hct MCV MCH MCHC RDW Std Deviation RDW Coeff of Teri Plt Count MPV Immature Gran % (Auto) Neut % (Auto) Lymph % (Auto) [place] % (Auto) Eos % (Auto) Baso % (Auto) Neut # (Auto) Lymph # (Auto) [place] # (Auto) Eos # (Auto) Baso # (Auto) Immature Gran # (Auto) Sodium Potassium Chloride Carbon Dioxide Anion Gap BUN Creatinine Est Cr Clr Drug Dosing Est GFR ( Amer) Est GFR (Non-Af Amer) BUN/Creatinine Ratio Glucose Calcium Phosphorus Magnesium Total Bilirubin AST ALT Alkaline Phosphatase Total Protein Albumin Globulin Albumin/Globulin Ratio TSH Urine Color Dark Yellow Urine Appearance Clear Urine pH 7.5 Ur Specific [place] 1.028 Urine Protein Negative Urine Glucose (UA) Negative Urine Ketones Trace H Urine Blood Negative Urine Nitrite Negative Urine Bilirubin Negative Urine Urobilinogen Negative Ur Leukocyte Esterase Negative Salicylates Urine Opiates Screen Neg Ur Methadone, Qual Neg Acetaminophen Urine Barbiturates Neg Ur Phencyclidine (PCP) Neg U Amphetamin/Meth Scrn Neg MDMA (Ecstasy) Screen Neg U Benzodiazepines Scrn Neg Ur Cocaine Metabolite Neg U Marijuana (THC) Screen Neg Ethyl Alcohol mg/dL COVID-19 Eval Order Covid19 [facility] SARS-CoV-2, RNA, NAAT 09/05/21 09/05/21 09/05/21 17:08 17:19 17:19 WBC 3.29 L RBC 4.45 L Hgb 13.5 L Hct 38.1 L MCV 85.6 MCH 30.3 MCHC 35.4 RDW Std Deviation 37.9 RDW Coeff of Teri 12.2 Plt Count 165 MPV 11.7 H Immature Gran % (Auto) 0.0 Neut % (Auto) 61.1 Lymph % (Auto) 30.7 [place] % (Auto) 7.6 Eos % (Auto) 0.3 Baso % (Auto) 0.3 Neut # (Auto) 2.01 Lymph # (Auto) 1.01 L [place] # (Auto) 0.25 Eos # (Auto) 0.01 Baso # (Auto) 0.01 Immature Gran # (Auto) 0.00 Sodium 137 Potassium 4.0 Chloride 106 Carbon Dioxide 29 Anion Gap 2.0 L BUN 14 Creatinine 1.14 Est Cr Clr Drug Dosing 134.7 Est GFR ( Amer) 107.5 Est GFR (Non-Af Amer) 92.7 BUN/Creatinine Ratio 12.4 Glucose 79 Calcium 9.0 Phosphorus Magnesium Total Bilirubin 0.7 AST 24 ALT 23 Alkaline Phosphatase 98 Total Protein 7.6 Albumin 3.9 Globulin 3.7 Albumin/Globulin Ratio 1.1 TSH 0.671 Urine Color Urine Appearance Urine pH Ur Specific [place] Urine Protein Urine Glucose (UA) Urine Ketones Urine Blood Urine Nitrite Urine Bilirubin Urine Urobilinogen Ur Leukocyte Esterase Salicylates Urine Opiates Screen Ur Methadone, Qual Acetaminophen Urine Barbiturates Ur Phencyclidine (PCP) U Amphetamin/Meth Scrn MDMA (Ecstasy) Screen U Benzodiazepines Scrn Ur Cocaine Metabolite U Marijuana (THC) Screen Ethyl Alcohol mg/dL COVID-19 Eval Order SARS-CoV-2, RNA, NAAT NEGATIVE 09/05/21 09/05/21 09/06/21 17:19 17:19 12:39 WBC RBC Hgb Hct MCV MCH MCHC RDW Std Deviation RDW Coeff of Teri Plt Count MPV Immature Gran % (Auto) Neut % (Auto) Lymph % (Auto) [place] % (Auto) Eos % (Auto) Baso % (Auto) Neut # (Auto) Lymph # (Auto) [place] # (Auto) Eos # (Auto) Baso # (Auto) Immature Gran # (Auto) Sodium Potassium Chloride Carbon Dioxide Anion Gap BUN Creatinine Est Cr Clr Drug Dosing Est GFR ( Amer) Est GFR (Non-Af Amer) BUN/Creatinine Ratio Glucose Calcium Phosphorus 2.9 Magnesium 2.4 Total Bilirubin AST ALT Alkaline Phosphatase Total Protein Albumin Globulin Albumin/Globulin Ratio TSH Urine Color Urine Appearance Urine pH Ur Specific [place] Urine Protein Urine Glucose (UA) Urine Ketones Urine Blood Urine Nitrite Urine Bilirubin Urine Urobilinogen Ur Leukocyte Esterase Salicylates < 1.7 L Urine Opiates Screen Ur Methadone, Qual Acetaminophen < 2 L Urine Barbiturates Ur Phencyclidine (PCP) U Amphetamin/Meth Scrn MDMA (Ecstasy) Screen U Benzodiazepines Scrn Ur Cocaine Metabolite U Marijuana (THC) Screen Ethyl Alcohol mg/dL < 3.0 COVID-19 Eval Order SARS-CoV-2, RNA, NAAT 09/06/21 17:41 WBC RBC Hgb Hct MCV MCH MCHC RDW Std Deviation RDW Coeff of Teri Plt Count MPV Immature Gran % (Auto) Neut % (Auto) Lymph % (Auto) [place] % (Auto) Eos % (Auto) Baso % (Auto) Neut # (Auto) Lymph # (Auto) [place] # (Auto) Eos # (Auto) Baso # (Auto) Immature Gran # (Auto) Sodium 137 Potassium 4.0 Chloride 105 Carbon Dioxide 29 Anion Gap 3.0 BUN 19 H Creatinine 1.30 Est Cr Clr Drug Dosing 118.2 Est GFR ( Amer) 91.7 Est GFR (Non-Af Amer) 79.1 BUN/Creatinine Ratio 14.6 Glucose 86 Calcium 9.3 Phosphorus Magnesium 2.3 Total Bilirubin AST ALT Alkaline Phosphatase Total Protein Albumin Globulin Albumin/Globulin Ratio TSH Urine Color Urine Appearance Urine pH Ur Specific [place] Urine Protein Urine Glucose (UA) Urine Ketones Urine Blood Urine Nitrite Urine Bilirubin Urine Urobilinogen Ur Leukocyte Esterase Salicylates Urine Opiates Screen Ur Methadone, Qual Acetaminophen Urine Barbiturates Ur Phencyclidine (PCP) U Amphetamin/Meth Scrn MDMA (Ecstasy) Screen U Benzodiazepines Scrn Ur Cocaine Metabolite U Marijuana (THC) Screen Ethyl Alcohol mg/dL COVID-19 Eval Order SARS-CoV-2, RNA, NAAT Hospital Course (1) Atypical eating disorder: (2) Depression with suicidal ideation: (3) Anxiety: (4) MDD (major depressive disorder), recurrent episode, moderate: (5) Bradycardia: (6) Post traumatic stress disorder (PTSD): -Transfer to hospitalist service. Psychiatry will continue to follow. -Needs 1:1 constant observation while on medicine service -May not leave AMA, will require inpatient psychiatric treatment again once medically cleared -No current psychiatric medications 09/06/21: -Consult hospitalist, dietary due to concern for refeeding syndrome and bradycardia -EKG -Vitals qshift -monitor Is & Os -blind daily weights -melatonin 3 mg qhs prn for sleep which he consented to -Diet calorie limit 1200 roberto per day, goal of 1-2 L fluid per day per hospitalist recommendations -Spoke with his team physician, Dr. Tabares, and team athletic shoe designer Kirk Garzon who he provided ROIs for 09/05/21: [facility] patient [facility]) on q15 min checks (behavioral with suicide precautions) for safety. The patient will participate in group, recreational, and milieu therapies and will be offered additional individual and family sessions as clinically appropriate. Mental Health & Subst Abuse Tx Therapist Name of Therapist: None Booth Cashier Name of Booth Cashier: None Post Discharge Appointments Primary Care Physician Name Of Family Doctor: [facility] Discharge Plan Discharge Items Patient Disposition: Transfer Acute Care Hospital Reason For Visit: MDD Discharge Diagnosis: Major Depressive Disorder, Atypical eating disorder Activity: Resume your previous activity Non-emergency contact: Primary Care Provider Call non-emergency contact if: you have any medication questions and your symptoms worsen Follow-up/Referrals: [facility] [Primary Care Provider] - Diet: Other - See Diet Comment Addtl Attending Provider Instructions: Patient transferring to medical floor due to necessity for continuous cardiac monitoring via telemetry. psychiatry will continue to follow and see him as a consult patient until he is medically stable enough for re-admission to inpatient psychiatry. Patient will need 1:1 constant observation while on medical floor due to high acute risk of self-harm. Pending Studies at Discharge: No Stand-Alone Forms: My [employer] Skilled Items Patient informed of condition?: Yes DNR: No (Full Code) Discharge Level of Care: Other Communicable Disease: No Discharge Prognosis: Other Lines: None Urinary Catheter: No Medications and DC Order Prescriptions: No Action No Known Home Medications RF: 0 Discharge Orders: Discharge Order (Routine); Ordered 09/06/21 Ordered By: Melida Shipley Admission Data Admit Date/Time: 09/05/21 19:58 Attending Provider: Melida Shipley Admit Provider: Melida Shipley Primary Care Provider: [facility] Other Providers: Melida Shipley Coding Level of Care Code 35621 D/C day mgmt 30 min or < Diagnoses Atypical eating disorder F50.9 Depression with suicidal ideation F32.A; R45.851 Anxiety F41.9 MDD (major depressive disorder), recurrent episode, moderate F33.1 Bradycardia R00.1 Post traumatic stress disorder (PTSD) F43.10 Time Spent (min) 20
--- NOTE | 2021-09-06 20:52 | History & Physical Report ---
Date of Service September 06, 2021 Assessment & Plan (1) Disordered eating: Plan: 20yo male with history of depression, SI and disordered eating who was initially admitted to Psychiatry now being transferred to medical with telemetry for ongoing bradycardia. Patient reports restrictive eating - consuming 4 granola bars and 2 yogurts/ day. Sometimes engages in excessive exercise as well. Admits to 20# intentional weight loss over the last month. Electrolytes are within normal limits. No arrhythmia noted on EKG. Normal intervals. Trace ketones in urine most likely secondary to starvation ketosis -Recommend continued inpatient therapy for eating disorder. Appreciate Psychiatry assistance with this matter. -Dietary consultation - As above- 12KCAL/KG/24 hours of intake- This would be 1128 KCals per day -Continue to monitor electrolytes, BMP/Mg and PO4, BSG with aggressive repletion -Continue Thiamine 200mg PO BID- can increase dose and frequency to TID as needed -Continue daily MVI - ECG daily - B12/Folate/Iron studies/Prealbumin added in morning labs with electrolytes (2) Bradycardia: Plan: HR as low as 34. Patient is largely asymptomatic with this low heart rate. EKG and electrolytes are normal. TSH normal at 0.671 - asymptomatic- as above will likely increase with nutritional intake -will check random cortisol level with AM labs - can see adrenal fatigue with eating disorders - patient also with low body temperature currently at 36 (3) Depression with suicidal ideation: Plan: Patient with history of ongoing depression, presently not on medication management or seeking counseling -Defer DX and therapy to psych -1:1 observation -Suicidal prevention strategies and safety tray -Will continue melatonin qHS PRN -Will continue Hydroxyzine PRN (4) Abnormal weight loss: Plan: As above- support, calorie counts, intake monitoring in supportive care environment - follow - refeeding risk as outlined above Plan: F/E/N - Heplock. Closely monitor electrolytes and replete aggressively as needed. Regular diet with calorie counting, Dietary consultation as above Ppx - Low risk for DVT Code - Full Dispo - Admit to medical with telemetry Admission and Anticipated Discharge Date Admission Date: September 05, 2021 History of Present Illness Chief Complaint: SUICIDAL IDEATION Primary Care Provider: [facility] Bhavesh Cueto is a 20yo male presenting at request of [facility] for concern for ongoing suicidal ideation as well as disordered eating. Patient has a longstanding history of depression which started his 2nd year of high school. He was on Prozac in the past which did little to help his depression. He presently does not follow with Psychiatry services. He has frequent suicidal ideations as well as a plan to either stab himself in the chest with a knife or jump from a parking garage. He has no history of suicidal gestures or attempts. Denies AH/VH/HI. He was admitted to Psychiatry unit for these issues on 09/05/21. Patient also with disordered eating behavior. He states that he was always cautious about what he ate. Last spring he was at a higher weight than usual and developed some knee pain. He had a physical therapist comment that his knee may be hurting due to his weight gain. After that he started restricting his caloric intake and lost weight. He states that he liked the way he looked with the weight loss so continued to restrict his caloric intake. He eats 4 granola bars and 2 yogurts per day. He feels guilty about eating. He has lost appx 20# over the last month. He continues to practice and work out. Patient denies chest pain, palpitations. He has occasional dizziness with positional changes. No syncope. Has blurry vision and feeling of "floaters" across his eyes on occasion. No additional complaints. Patient was initially admitted to the Psychiatry unit. He has had persistent bradycardia with HR as low as 34. He has been discharged from Psychiatric services for now and will be admitted to medical with telemetry. Allergies Allergy/AdvReac Type Severity Reaction Status Date / Time No Known Allergies Allergy Unverified 09/05/21 17:13 Home Medications Medication Instructions Recorded Confirmed Type No Known Home Medications 09/05/21 09/05/21 History Past Med/Surg History Medical History (Updated 09/06/21 @ 21:02 by Óscar Paredes) Anxiety Depression Depression with suicidal ideation MDD (major depressive disorder), recurrent episode, moderate No pertinent family history Surgical History No pertinent past surgical history Family History (Updated 09/06/21 @ 20:51 by Óscar Paredes) Other No pertinent family history Social History Smoking Status: Never smoker Preferred Language: Slovak Communication Ability: Effective Rack Loader Required: No Beliefs That Will Affect Care: None marital status: Single current occupational status: student other: [employer] student; plays on football team Feels Safe at Home: No Assistive Devices: None Review of Systems Review of Systems: REVIEW OF SYSTEMS: Constitutional: No fever, sweats or chills Eyes: (+) fuzzy vision with stress, No diplopia, or visual field deficits ENT: normal hearing, no trouble swallowing Respiratory: No cough, sputum, dyspnea at rest or on exertion Cardiovascular: (+) dizziness when standing long time, No chest pain, tightness or palpitations Abdomen: No pain, nausea, vomiting, diarrhea or constipation Musculoskeletal: No joint pain, calf pain, swelling Neurologic: No weakness, numbness/tingling, or balance problems Psychiatric: No anxiety or depression Skin: No rash or itch Physical Exam Physical Exam: General: patient resting comfortably, NAD, non-toxic in appearance, AA&O x 4 Skin: warm, dry, intact, no rashes or lesions HEENT: NC/AT, PERRL, EOMI, anicteric sclera, conjunctiva without injection, external ear normal to inspection and nontender, nares patent, moist mucus membranes, dentition intact, no oropharyngeal lesions, neck supple, trachea midline, no LAD, no thyromegaly, no JVD Heart: +S1/S2, regular, bradycardic, no m/r/g Lungs: equal air entry bilaterally, no rales/rhonchi/wheezes Abd: +BS, soft, NT/ND, no masses/organomegaly/ascites Ext: warm, 2+ pulses in UE/LE bilaterally, no clubbing/cyanosis or edema Neuro: nonfocal, patient AA&O x 4, speech intact, no facial droop, moving all extremities on command with equal strength 5/5 Results & Data Results & Data ([facility]) Vital Signs (Past 12 Hours) Vital Signs Temp Pulse Pulse Resp BP Pulse Ox 09/06/21 20:03 36.0 C L 09/06/21 19:52 36.8 C 59 L 34 L 18 107/61 100 09/06/21 17:46 59 L 18 107/61 100 09/06/21 17:44 44 L 16 128/65 99 09/06/21 17:42 42 L 16 130/69 98 Laboratory Results Laboratory Results WBC 3.29 K/uL (4.8-10.8) L 09/05/21 17:19 RBC 4.45 M/uL (4.7-6.1) L 09/05/21 17:19 Hgb 13.5 g/dL (14.0-18.0) L 09/05/21 17:19 Hct 38.1 % (42-52) L 09/05/21 17:19 MCV 85.6 fL (80-100) 09/05/21 17:19 MCH 30.3 pg (25-34) 09/05/21 17:19 MCHC 35.4 g/dL (32-36) 09/05/21 17:19 RDW Std Deviation 37.9 fL (36.4-46.3) 09/05/21 17:19 RDW Coeff of Teri 12.2 % (11.5-14.5) 09/05/21 17:19 Plt Count 165 K/uL (130-400) 09/05/21 17:19 MPV 11.7 fL (7.4-10.4) H 09/05/21 17:19 Immature Gran % (Auto) 0.0 % 09/05/21 17:19 Neut % (Auto) 61.1 % 09/05/21 17:19 Lymph % (Auto) 30.7 % 09/05/21 17:19 [place] % (Auto) 7.6 % 09/05/21 17:19 Eos % (Auto) 0.3 % 09/05/21 17:19 Baso % (Auto) 0.3 % 09/05/21 17:19 Neut # (Auto) 2.01 K/uL (1.4-6.5) 09/05/21 17:19 Lymph # (Auto) 1.01 K/uL (1.2-3.4) L 09/05/21 17:19 [place] # (Auto) 0.25 K/uL (0.11-0.59) 09/05/21 17:19 Eos # (Auto) 0.01 K/uL (0-0.5) 09/05/21 17:19 Baso # (Auto) 0.01 K/uL (0-0.2) 09/05/21 17:19 Immature Gran # (Auto) 0.00 K/uL (0.00-0.02) 09/05/21 17:19 Sodium 137 mmol/L (136-145) 09/06/21 17:41 Potassium 4.0 mmol/L (3.5-5.1) 09/06/21 17:41 Chloride 105 mmol/L (98-107) 09/06/21 17:41 Carbon Dioxide 29 mmol/L (21-32) 09/06/21 17:41 Anion Gap 3.0 (3-11) 09/06/21 17:41 BUN 19 mg/dl (7-18) H 09/06/21 17:41 Creatinine 1.30 mg/dl (0.6-1.4) 09/06/21 17:41 Est Cr Clr Drug Dosing 118.2 ml/min 09/06/21 17:41 Est GFR ( Amer) 91.7 ml/min 09/06/21 17:41 Est GFR (Non-Af Amer) 79.1 ml/min 09/06/21 17:41 BUN/Creatinine Ratio 14.6 (10-20) 09/06/21 17:41 Glucose 86 mg/dl (70-99) 09/06/21 17:41 Calcium 9.3 mg/dl (8.5-10.1) 09/06/21 17:41 Phosphorus 2.9 mg/dl (2.5-4.9) 09/06/21 12:39 Magnesium 2.3 mg/dl (1.8-2.4) 09/06/21 17:41 Total Bilirubin 0.7 mg/dl (0.2-1) 09/05/21 17:19 AST 24 U/L (15-37) 09/05/21 17:19 ALT 23 U/L (12-78) 09/05/21 17:19 Alkaline Phosphatase 98 U/L (45-117) 09/05/21 17:19 Total Protein 7.6 gm/dl (6.4-8.2) 09/05/21 17:19 Albumin 3.9 gm/dl (3.4-5.0) 09/05/21 17:19 Globulin 3.7 gm/dl (2.5-4.0) 09/05/21 17:19 Albumin/Globulin Ratio 1.1 (0.9-2) 09/05/21 17:19 TSH 0.671 uIu/ml (0.300-4.500) 09/05/21 17:19 Urine Color Dark Yellow 09/05/21 16:40 Urine Appearance Clear (Clear) 09/05/21 16:40 Urine pH 7.5 (4.5-7.5) 09/05/21 16:40 Ur Specific Van 1.028 (1.000-1.030) 09/05/21 16:40 Urine Protein Negative (Negative) 09/05/21 16:40 Urine Glucose (UA) Negative (Negative) 09/05/21 16:40 Urine Ketones Trace (Negative) H 09/05/21 16:40 Urine Blood Negative (Negative) 09/05/21 16:40 Urine Nitrite Negative (Negative) 09/05/21 16:40 Urine Bilirubin Negative (Negative) 09/05/21 16:40 Urine Urobilinogen Negative (Negative) 09/05/21 16:40 Ur Leukocyte Esterase Negative (Negative) 09/05/21 16:40 Salicylates < 1.7 mg/dl (2.8-20) L 09/05/21 17:19 Urine Opiates Screen Neg (Neg) 09/05/21 16:40 Ur Methadone, Qual Neg (Neg) 09/05/21 16:40 Acetaminophen < 2 ug/ml (10-30) L 09/05/21 17:19 Urine Barbiturates Neg (Neg) 09/05/21 16:40 Ur Phencyclidine (PCP) Neg (Neg) 09/05/21 16:40 U Amphetamin/Meth Scrn Neg (Neg) 09/05/21 16:40 MDMA (Ecstasy) Screen Neg (Neg) 09/05/21 16:40 U Benzodiazepines Scrn Neg (Neg) 09/05/21 16:40 Ur Cocaine Metabolite Neg (Neg) 09/05/21 16:40 U Marijuana (THC) Screen Neg (Neg) 09/05/21 16:40 Ethyl Alcohol mg/dL < 3.0 mg/dl (0-3) 09/05/21 17:19 COVID-19 Eval Order Covid19 [facility]Now [facility] 09/05/21 17:08 SARS-CoV-2, RNA, NAAT NEGATIVE (NEGATIVE) 09/05/21 17:08 Diagnostic Findings EchoCardiogram - LV is mildly dilated. There is normal LO wall thickness. EF 55-60%. LV systolic function is normal. Normal diastolic function. LV wall motion is normal. ECG Additional Comments: DICTATED BY:Clemente Bruno MD Test Reason : Blood Pressure : / mmHG Vent. Rate : 038 BPM Atrial Rate : 038 BPM P-R Int : 132 ms QRS Dur : 102 ms QT Int : 522 ms P-R-T Axes : 087 084 048 degrees QTc Int : 414 ms Marked sinus bradycardia Abnormal ECG No previous ECGs available Confirmed by Clemente Bruno ([id number] on 09/06/2021 2:02:32 PM Referred By: REFERRED SELF Confirmed By:Josse Bruno PG Care Time/CCT Total # of Minutes Spent Total Time Spent with Patient: Total time spent is greater than 50% in coordination of care (as documented) at patient's floor/unit and/or counseling patient: Coding Level of Care Code 89905 Initial Inpt Care Lvl 2 Diagnoses Disordered eating F50.9 Bradycardia R00.1 Depression with suicidal ideation F32.A; R45.851 Abnormal weight loss R63.4
[2021-09-07] MEDS ORDERED: OMEGA-3 (PURIFIED FISH OIL) 1 GM CAP PO SCH (09:00)
== END 2021-09-06 22:40 | disposition short-term general hospital (02) | DRG 885 ==
LOC: ED 16:35 → 3S 19:58

== ENCOUNTER 2021-09-06 22:50 | Inpatient (IN) ==
[2021-09-07] MEDS ORDERED: ACETAMINOPHEN 325 MG TAB PO PRN (00:49)
[2021-09-07] MEDS ORDERED: ONDANSETRON INJ 2 MG/ML 2 ML VIAL IV PRN (00:49)
[2021-09-07] MEDS ORDERED: MELATONIN 3 MG TAB PO PRN (00:56)
[2021-09-07] MEDS ORDERED: hydrOXYzine HCl 25 MG TAB PO PRN (00:56)
[2021-09-07] MEDS: THIAMINE HCL 100 MG TAB PO SCH ×2 (07:41→20:26)
[2021-09-07] MEDS: MULTIVITAMIN TAB PO SCH (07:41)
[2021-09-07 09:23] LABS: BUN Creatinine Ratio 15.1 (10-20); Calcium 9.9 mg/dl (8.5-10.1); Creatinine Clr Calc Pharmacy 137.1 ml/min; Est GFR (African American) 109.8 ml/min; Est GFR (Non-African American) 94.7 ml/min; Magnesium 2.2 mg/dl (1.8-2.4); Potassium 3.8 mmol/L (3.5-5.1)
[2021-09-07 09:55] LABS: Phosphorus 3.8 mg/dl (2.5-4.9); Prealbumin 17.2 mg/dl (20-40)
--- NOTE | 2021-09-07 11:17 | Psychiatric Consultation ---
Date of Consultation September 07, 2021 Impression / Recommendations Impression The patient is a 20 year old with a history of depression, anxiety, and eating disorder who was admitted psychiatrically for worsening depression, SI with plan and restrictive eating now on medical service for additional cardiac monitoring in setting of severe caloric restriction. He continues to be deemed unstable and requires psychiatric hospitalization for diagnostic clarification, safety and stabilization, medication management and development of further coping skills. For now will remain on medical service until medically cleared with plan to then be re-admitted to psychiatry. We also are continuing process of referral for specialized eating disorder treatment due to severity of eating disorder and need for close ongoing medical monitoring and specialized intervention/treatment team approach. (1) MDD (major depressive disorder), recurrent episode, moderate: (2) Post traumatic stress disorder (PTSD): (3) Atypical eating disorder: -1:1, may not leave AMA -once medically stabilized plan for re-admission to psychiatry on 201 status -ongoing efforts of referring to specialized inpatient eating disorder treatment facilities -no psychiatric medications at this time per his preference and to avoid any additional cardiac strain/potential for QTc effects Psych History Identifying Data Bhavesh Cueto is a 20 year old with a history of depression, anxiety, and eating disorder who was initially admitted to psychiatry for worsening depression, SI with plan and restrictive eating who was then transferred to inpatient medicine last night for cardiac monitoring. Psychiatry consulted for ongoing management with plan for readmission once medically stabilized. Chief Complaint "I'm ok". History of Present Illness Please see psych H&P from 09/06 for detailed history. Patient is well known to me from admission intake yesterday on inpatient psychiatry. Today Bhavesh reports stable mood and feels able to remain safe with support of 1:1. Discussed reason from transfer last night and he feels comfortable with no concerns or questions. Discussed again plan for referral to inpatient specialized eating disorder program which he remains agreeable to and signed ROIs for this. Reviewed plan that he will be re-admitted to psychiatry once he's medically stable. Slept well last night after late transfer. Denies any pain today. Allergies Allergy/AdvReac Type Severity Reaction Status Date / Time No Known Allergies Allergy Unverified 09/05/21 17:13 Home Medications Medication Instructions Recorded Confirmed Type multivitamin with minerals 1 cap PO DAILY 09/07/21 09/07/21 History omega-3 fatty acids 1,000 mg PO DAILY 09/07/21 09/07/21 History thiamine HCl (vitamin B1) 100 mg 200 mg PO BID 09/07/21 09/07/21 History tablet Personal History Beliefs That Will Affect Care: None Patient History Medical History Anxiety Depression Depression with suicidal ideation MDD (major depressive disorder), recurrent episode, moderate No pertinent family history Surgical History No pertinent past surgical history Family History Other No pertinent family history Social History Smoking Status: Never smoker Hx Alcohol Use: No Hx Substance Use: No Preferred Language: Tajik Communication Ability: Effective Train Dispatcher Required: No Beliefs That Will Affect Care: None marital status: Single Current Living Situation: Alone Current Living Situation Comment: STUDENT HOUSING current occupational status: student Other Information That Helps Us Care for You: No other: [employer] student; plays on football team Feels Safe at Home: Yes Safety Concerns: Feels Safe At This Time Assistive Devices: None Physical Exam Psychiatric: Orientation: alert and oriented x 3 Apperance: appropriately dressed and appropriately groomed Eye Contact: good eye contact Motor Behavior: steady gait and station and no abnormal motor movements Speech: normal rate/rhythm/volume of speech Affect: + constricted affect Mood: + depressed mood Thought Process: goal directed thought process Thought Content: reality based without delusions Suicidal Thoughts: denies suicidal thoughts Homicidal Thoughts: denies homicidal thoughts Hallucinations: no auditory hallucinations and no visual hallucinations Cognition: recent memory grossly intact, remote memory grossly intact, attention grossly intact and language grossly intact Estimated Intelligence: consistent with education level Insight: + fair insight Judgement: + fair judgement Vital Signs (Past 24 Hours): Last Vital Signs Temp 36.8 C 09/07/21 10:46 Pulse 44 L 09/07/21 10:46 Resp 18 09/07/21 10:46 BP 112/59 L 09/07/21 10:46 Pulse Ox 98 09/07/21 10:46 Review of Systems All systems reviewed & are unremarkable except as noted in HPI & below Results & Data ([facility]) Medications Administered Multivitamins (Multivitamin Tab) 1 tab PO QAM GLORIA Stop: 10/07/21 08:59 Last Admin: 09/07/21 07:41 Dose: 1 tab Documented by: [id number] Thiamine HCl (Thiamine Hcl 100 Mg Tab) 200 mg PO BID [facility] Stop: 10/07/21 08:59 Last Admin: 09/07/21 07:41 Dose: 200 mg Documented by: [id number] Coding Level of Care Code 65304 Inpt Consult Level 2 Diagnoses MDD (major depressive disorder), recurrent episode, moderate F33.1 Post traumatic stress disorder (PTSD) F43.10 Atypical eating disorder F50.9 Time Spent (min) 30
[2021-09-07 11:52] LABS: Folate (Folic Acid) 5.4 ng/ml (>5.38)
--- NOTE | 2021-09-07 15:26 | Hospitalist Progress Note ---
Date of Service September 07, 2021 Assessment & Plan (1) Disordered eating: Plan: Disordered eating -Pt admitted to psych initially but transferred to medicine due to bradycardia -Currently around 1200 KCals per day with gradual increase in daily calories -Monitor for refeeding- BMP, Mg, Phos, daily EKG -Continue thiamine 200mg PO BID -Pt to be transferred to [facility] on Friday but will require at least 24 hours of HR 40+ to be accepted. Will continue feeding, monitor electrolytes -May potentially discharge back to psych unit tomorrow where he will stay until transfer to [facility] Bradycardia -As above, secondary to nutritional deficiency impacting metabolism -Pt's HR likely in lower range given he is an active athlete with regular exercise -500 mL NSS given today for volume expansion -Encourage PO intake fluids Orthostatic hypotension -Orthostatics completed, wnl -Secondary to nutritional deficiency -Has improved with IVF and nutrition Depression -Pt to be transferred to [facility] for depression/eating disorder -No pharmacologic management at this time -Would benefit from going to psych unit for inpatient psychotherapy and support until transfer Admission and Anticipated Discharge Date Admission Date: September 07, 2021 Supervising Physician Co-Signing Physician Notes Attending attestation Pt seen and examined in concert with Dr. Viera. In agreement with the documented findings as noted in the resident documentation with any exceptions or additions as noted here. Tolerating POI well over lunch time meal. Resolution of orthostasis today. On examination, S1/S2 nl bradycardia no MCG. CTAB. Abd NT/ND BS+ve Disordered eating with concern for re-feeding syndrome - gradual increase in caloric intake, monitor lytes as noted. EKG daily. Thiamine supplementation. Likely transition to psych in AM. Bradycardia in the setting of above - bolus with monitoring Orthostatic hypotension - resolved Depression with self-harm ideation - psychiatry consult - transition to inpatient psychiatry in AM if tolerating feeds, stable lytes, stable HR, no return of orthostasis Else see resident documentation as noted. Subjective Pt feeling well without any acute complaints. States dinner and breakfast went well, tolerated without any nausea or difficulty eating. Still endorsing some depression but less than yesterday. Review of Systems Review of Systems: +depressed mood Physical Exam Physical Exam: General: awake, alert, no apparent distress, calm and cooperati ve HEENT: moist mucous membranes, no lymphadenopathy CV: RRR, normal S1, S2, no murmurs appreciated Resp: CTAB, unlabored respirations Abd: soft, nontender, nondistended Extremities: cap refill <2s, +2 distal pulses, no peripheral edema Neuro: grossly alert and oriented, no focal motor deficits Psych: blunted affect, minor psychomotor retardation, passive SI without intent or plan Skin: warm and dry, no noted rashes Results & Data Results & Data ([facility]) Vital Signs (Past 12 Hours) Vital Signs Temp Pulse Resp BP Pulse Ox 09/07/21 15:01 36.8 C 42 L 18 126/70 98 09/07/21 10:46 36.8 C 44 L 18 112/59 L 98 Resident Activity Tracking Resident Involvement: Resident Care Provided Care Provided: Adult Hospital Medicine
[2021-09-07] MEDS ORDERED: SODIUM CHLORIDE 0.9% 1,000 ML IV SCH (15:30)
[2021-09-07] MEDS ORDERED: SODIUM CHLORIDE 0.9% 500 ML IV SCH (15:30)
--- NOTE | 2021-09-08 06:28 | Electrocardiogram Report ---
Test Reason : Blood Pressure : / mmHG Vent. Rate : 035 BPM Atrial Rate : 035 BPM P-R Int : 148 ms QRS Dur : 100 ms QT Int : 542 ms P-R-T Axes : 085 077 064 degrees QTc Int : 413 ms Marked sinus bradycardia Abnormal ECG When compared with ECG of 06-SEP-2021 11:38, No significant change was found Confirmed by Bryan Perez ([id number]) on 09/08/2021 6:27:55 AM Referred By: Jaqueline Gomez Confirmed By:Bryan Perez
--- NOTE | 2021-09-08 07:45 | Hospitalist Progress Note ---
Date of Service September 08, 2021 Assessment & Plan (1) Disordered eating: Plan: Disordered eating -Pt admitted to psych initially but transferred to medicine due to bradycardia -Currently around 1200 KCals per day with gradual increase in daily calories -Monitor for refeeding- BMP, Mg, Phos, daily EKG -Continue thiamine 200mg PO BID -Pt to be transferred to [facility] on Friday but will require at least 24 hours of HR 40+ to be accepted. Will continue feeding, monitor electrolytes -May potentially discharge back to psych unit tomorrow where he will stay until transfer to 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 for depression/eating disorder -No pharmacologic management at this time -Would benefit from going to psych unit for inpatient psychotherapy and support until transfer Admission and Anticipated Discharge Date Admission Date: September 07, 2021 Ruthy Ospina is a 20-year-old man with a medical history of depression and suicidal ideation, who presented to the hospital with a complaint of disordered eating. Moved from psych to [facility] telemetry following development of bradycardia. Currently being managed for eating disorder. Today, Results & Data Results & Data ([facility]) Vital Signs (Past 12 Hours) Vital Signs Temp Pulse Pulse Resp BP Pulse Ox 09/08/21 07:31 36.5 C 45 L 16 110/57 L 100 09/08/21 07:13 32 L 09/08/21 03:55 36.7 C 35 L 16 123/66 98 09/08/21 03:01 36.6 C 36 L 18 116/60 97 09/07/21 23:07 36.9 C 43 L 18 117/60 99 09/07/21 22:19 40 L
[2021-09-08] MEDS: MULTIVITAMIN TAB PO SCH (08:00)
[2021-09-08] MEDS: THIAMINE HCL 100 MG TAB PO SCH (08:01)
[2021-09-08 08:02] LABS: BUN Creatinine Ratio 16.8 (10-20); Calcium 9.2 mg/dl (8.5-10.1); Creatinine Clr Calc Pharmacy 161.7 ml/min; Est GFR (Non-African American) 115.6 ml/min; Potassium 3.8 mmol/L (3.5-5.1)
[2021-09-08 08:03] LABS: Phosphorus 4.1 mg/dl (2.5-4.9)
--- NOTE | 2021-09-08 13:05 | Psychiatric Progress Note ---
Date of Service September 08, 2021 Impression / Recommendations Impression The patient is a 20 year old with a history of depression, anxiety, and eating disorder who was admitted psychiatrically for worsening depression, SI with plan and restrictive eating now on medical service for additional cardiac monitoring in setting of severe caloric restriction. He continues to be deemed unstable and requires psychiatric hospitalization for diagnostic clarification, safety and stabilization, medication management and development of further coping skills. For now will remain on medical service until medically cleared with plan to then be re-admitted to psychiatry. We also are continuing process of referral for specialized eating disorder treatment due to severity of eating disorder and need for close ongoing medical monitoring and specialized intervention/treatment team approach. 09/08/21: Reviewed care by Dr. Shipley in italics. Please repeat orthostatics when patient stable to be off residential monitor. 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 Chief Complaint "yeah, it's friday, I'll probably watch", referring to the football game. Review of Systems Notes patient denies cp, JOEL, SOB, dizziness but mostly in bed, denies N/V/D Subjective Subjective Patient was seen & assessed and interval progress reviewed with nursing and social work. HR low 32 overnight. Resting in bed. Interacts well. States he is eating and drinking "more than usual". Physical Exam Psychiatric Orientation: alert and oriented x 3 Apperance: appropriately dressed and appropriately groomed Eye Contact: good eye contact Motor Behavior: steady gait and station and no abnormal motor movements Speech: normal rate/rhythm/volume of speech Mood: + depressed mood Thought Process: goal directed thought process Thought Content: reality based without delusions Suicidal Thoughts: denies suicidal thoughts Homicidal Thoughts: denies homicidal thoughts Hallucinations: no auditory hallucinations and no visual hallucinations Cognition: recent memory grossly intact, remote memory grossly intact, attention grossly intact and language grossly intact Estimated Intelligence: consistent with education level Vital Signs (Past 24 Hours) Last Vital Signs Temp 36.6 C 09/08/21 11:48 Pulse 55 L 09/08/21 11:48 Resp 18 09/08/21 11:48 BP 138/54 L 09/08/21 11:48 Pulse Ox 100 09/08/21 11:48 Results & Data [facility] Laboratory Results Laboratory Results - last 24 hr 09/08/21 06:50 Sodium 140 Potassium 3.8 Chloride 110 H Carbon Dioxide 24 Anion Gap 6.0 BUN 16 Creatinine 0.95 Est Cr Clr Drug Dosing 161.7 Est GFR ( Amer) 134.0 Est GFR (Non-Af Amer) 115.6 BUN/Creatinine Ratio 16.8 Glucose 77 Calcium 9.2 Phosphorus 4.1 Magnesium 2.0 Current Inpatient Medications Current Inpatient Medications: Current Inpatient Medications Acetaminophen (Acetaminophen 325 Mg Tab) 650 mg PO Q4H PRN PRN Reason: pain/fever Stop: 10/07/21 00:48 Hydroxyzine HCl (Hydroxyzine Hcl 25 Mg Tab) 25 mg PO Q4H PRN PRN Reason: anxiety Stop: 10/07/21 00:55 Melatonin (Melatonin 3 Mg Tab) 3 mg PO HS PRN PRN Reason: Sleep Stop: 10/07/21 00:55 Multivitamins (Multivitamin Tab) 1 tab PO QAM [facility] Stop: 10/07/21 08:59 Last Admin: 09/08/21 08:00 Dose: 1 tab Documented by: Ondansetron HCl (Ondansetron Inj 2 Mg/Ml 2 Ml Vial) 4 mg IV Q6H PRN PRN Reason: Nausea Stop: 10/07/21 00:48 Thiamine HCl (Thiamine Hcl 100 Mg Tab) 200 mg PO BID [facility] Stop: 10/07/21 08:59 Last Admin: 09/08/21 08:01 Dose: 200 mg Documented by:
--- NOTE | 2021-09-08 16:03 | Discharge Summary ---
Date of Service September 08, 2021 Admission HPI Per Admitting Provider Bhavesh presents for psychiatric admission for worsening depression, SI with plans and restrictive eating. Bhavesh describes a long history of depression, starting his sophomore year of high school, with intermittent SI starting at that time as well. 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 Last year SI occurred about every other day with thoughts lasting about 30 min to 1 hour. At that time he would often think about jumping from a parking garage near his on campus apartment and would walk to the top every other day to contemplate this but felt he had enough reasons to live to not act on these suicidal urges. Starting this summer he feels his depression and SI has intensified in the c ontext of feeling more pressure from football, particularly in regard to needing to gain more weight. He notes that at one point he was told he could be kicked off the team if he could not gain enough weight and this caused significant stress as he would be financially unable to continue his education if this occurred. At that time he at acutely worsening SI and that night got out a knife and was pacing and considering acting on his SI. Since June he's been having SI "all day" with thoughts of dying by jumping from the parking garage or stabbing himself in the stomach or chest with a knife he keeps next to his bed. He stopped going to the parking garage as he feared he may act on his SI and he notes increased fatigue making it harder to want to walk there. He endorses current depressive symptoms of low mood, hopelessness, helplessness, worthlessness, decreased sleep, decreased energy, has been feeling more hungry due to increased nutritional restriction, and decreased interest. He does still enjoy making and listening to music. In terms of his eating he notes that is a big concern and that he recognizes he needs to eat more but weight gain or increased nutritional intake causes him significant distress. He recalls always wanting to eat healthy and categorizing foods as "good or bad" but that he has become more strict over time. After starting at [employer] he was able to gain some weight as he put on muscle and eat more but then he felt guilt and hated the way his body looked causing him to begin purging and doing excessive exercise on top of his twice daily athletic training. He notes that athletic trainers and others with the football program noticed he was losing weight and he deflected by saying he was going Vegan as a way to restrict and feel in control. Over the last two months he's been restricting more and identifies a goal of eating less than 1,000 calories per day. His goal day would be to eat only applesauce which he does on some days. Most days he estimates he has been consuming between 1,200-1,400 calories consisting of 4 granola bars and 1-2 yogurts. On these days he will then exercise excessively by running after evening practice to try to burn off extra calories. No laxative use nor any current purging. He denies feeling dizzy or weak at practice but has experienced dizziness when standing up suddenly at times. He would like to change his eating but feels powerless to do so as it makes him feel horrible about how he looks and feels he still needs to lose more weight. He is estimated to have lost between 40-50 lbs over the last 3 months. He also endorses body obsessions such as having to suck in his stomach multiple times until he appears think enough in the mirror to be able to leave the apartment each day. He identifies strong concerns about body image and low self- esteem. Psychiatric ROS notable for: possible hypomanic episodes-history of brief periods of elevated mood (2-3 days) during high school when he required little sleep, had increased energy, was more talkative, had increased sex drive, and got in trouble in class for interrupting or talking more ut after a few days he would "crash" and sleep a lot and never required hospitalization or had legal consequences. Hx trauma and PTSD symptoms of flashbacks, night-terrors, avoidance and hypervigilance. Endorses anxiety, history panic attack last a few months ago. No hx OCD. No hx psychosis. Admission Exam Per Admitting Provider Orientation: alert and oriented x 3 Apperance: appropriately dressed and appropriately groomed Eye Contact: good eye contact Motor Behavior: steady gait and station and no abnormal motor movements Speech: normal rate/rhythm/volume of speech Affect: + flat affect Mood: + depressed mood and + anxious mood Thought Process: goal directed thought process Thought Content: reality based without delusions Suicidal Thoughts: denies suicidal intent; + reports suicidal thoughts and + reports suicidal plan Homicidal Thoughts: denies homicidal thoughts Hallucinations: no auditory hallucinations and no visual hallucinations Cognition: recent memory grossly intact, remote memory grossly intact, attention grossly intact and language grossly intact Estimated Intelligence: consistent with education level Insight: + fair insight Judgement: + fair judgement Principal Diagnosis Bradycardia secondary to disordered eating. Discharge Exam Constitutional WD/WN, vitals as above Respiratory normal respiratory effort, lungs clear to auscultation Cardiovascular Rate/Rhythm: regular rhythm and + bradycardic Gastrointestinal (Abdomen) normal bowel sounds, soft, nontender, no hepatosplenomegaly Psychiatric Orientation: alert and oriented x 3 Eye Contact: good eye contact Affect: + flat affect Cognition: attention grossly intact and language grossly intact Discharge Data Allergies Allergy/AdvReac Type Severity Reaction Status Date / Time No Known Allergies Allergy Unverified 09/05/21 17:13 Consultations 09/07/21 00:49 Consult Psychiatry Routine Hospital Course (1) Disordered eating: Disordered eating -Pt admitted to psych initially but transferred to medicine due to bradycardia -Currently around 1200 KCals per day with gradual increase in daily calories -Monitor for refeeding- BMP, Mg, Phos, daily EKG -Continue thiamine 200mg PO BID -Pt to be transferred to [facility] on Friday but will require at least 24 hours of HR 40+ to be accepted. Will continue feeding, monitor electrolytes -Discharge back to psych unit tomorrow where he will stay until transfer to [facility] Bradycardia -As above, secondary to nutritional deficiency impacting metabolism -Pt's HR likely in lower range given he is an active athlete with regular exercise -500 mL NSS given today for volume expansion -Encourage PO intake fluids Orthostatic hypotension -Orthostatics completed, wnl -Secondary to nutritional deficiency -Has improved with IVF and nutrition Depression -Pt to be transferred to [facility] for depression/eating disorder -No pharmacologic management at this time -Would benefit from going to psych unit for inpatient psychotherapy and support until transfer Total Time Total Time Spent Total Time Spent (In Minutes): 10 Discharge Plan Discharge Items Patient Disposition: Home - Self-Care Reason For Visit: DEPRESSION, SI Discharge Diagnosis: Bradycardia secondary to disordered eating secondary to depression, suicidal ideation. Activity: Per Instructions section Activity Comment: Will be discharging to inpatient psychiatric care. Non-emergency contact: Psychiatrist Call non-emergency contact if: your symptoms worsen Follow-up/Referrals: [facility] [Primary Care Provider] - (Please make a hospital follow up appointment with your doctor for within a week or two.) Diet: Regular Addtl Attending Provider Instructions: You were admitted to the hospital for bradycardia. You were treated with oral nutrition. A discharge summary will be sent to your primary care physician to ensure continuity of care. Please bring this discharge summary with you to your next office appointment so that your provider can review it at that time. Follow-up appointments: Keep all your follow-up appointments as already scheduled. If you cannot make an appointment, notify your provider. Medications: Take your medications as instructed; do not skip a dose of your medicines. Make sure all of your doctors know every medicine you are taking (including zckf-abu-sqnvfcu medicines, vitamins, and supplements). Call your primary care provider before taking any new medicines (including hsio-fic-fzkqhug medicines, vitamins, and supplements), because some of these may interact with your current medications, or may make your symptoms worse. Tell your primary care provider if you cannot afford your medications. CONTACT YOUR PRIMARY CARE PROVIDER if you experience any of the following: Depressed mood Suicidal or homicidal ideation Difficulty following your treatment plan, or difficulty taking medications CALL 911 OR GO TO THE EMERGENCY DEPARTMENT if you experience any of the following: Sudden, severe abdominal pain or nausea/vomiting Severe chest pain, or chest pain that radiates (moves) to your jaw or arm Sudden, severe shortness of breath or difficulty breathing Thank you for allowing us to participate in your care. Pending Studies at Discharge: No Stand-Alone Forms: My [facility], Smoking Cessation Medications and DC Order Prescriptions: Continued thiamine HCl (vitamin B1) 100 mg Tablet 200 mg PO BID RF: 0 omega-3 fatty acids Capsule 1,000 mg PO DAILY RF: 0 multivitamin with minerals Capsule 1 cap PO DAILY RF: 0 Discharge Orders: Discharge Order (Routine); Ordered 09/08/21 Ordered By: Dayton Harrell Admission Data Admit Date/Time: 09/07/21 00:50 Attending Provider: Brody Myers Admit Provider: Jaqueline Gomez Primary Care Provider: [facility] Other Providers: Melida Shipley ; Michelle Barton ; Salud Mcclain ; Wagner Mcdaniel Supervising Physician Co-Signing Physician Notes Attending attestation Pt seen and examined in concert with Dr. Harrell. In agreement with the documented findings as noted in the resident documentation with any exceptions or additions as noted here. Resting comfortably without acute complaint. No subjective orthostasis. On examination, S1/S2 nl RRR no MCG. CTAB. Abd NT/ND BS+ve Disordered eating with concern for re-feeding syndrome - tolerating diet with stable electrolytes and PO4. Continue thiamine supplementation Bradycardia in the setting of above - stable, slightly increased. LIkely 2/2 athletic heart. OK with routine monitoring with resolution of subjective orthostasis Depression with self-harm ideation - psychiatry consult - transition to inpatient psychiatry Else see resident documentation as noted. TOtal attending time spent on this case on the day of discharge: 35 minutes. Resident Activity Tracking Resident Involvement: Resident Care Provided Care Provided: Adult Hospital Medicine
== END 2021-09-08 18:17 | disposition home or self-care (01) | DRG 308 ==
LOC: SUATTDRO 22:50 → 2W 22:50

== ENCOUNTER 2021-09-08 16:25 | Inpatient (IN) ==
[2021-09-08] MEDS ORDERED: ALUMINUM/MAGNESIUM SUSP 30 ML UDC PO PRN (16:29)
[2021-09-08] MEDS ORDERED: ACETAMINOPHEN 325 MG TAB PO PRN (16:29)
[2021-09-08] MEDS ORDERED: MAGNESIUM HYDROXIDE SUSP 30 ML UDC PO PRN (16:29)
[2021-09-08] MEDS ORDERED: hydrOXYzine HCl 25 MG TAB PO PRN (16:29)
[2021-09-08] MEDS ORDERED: BISMUTH SUBSALICYLATE LIQD 236 ML PO PRN (16:29)
[2021-09-08] MEDS ORDERED: SODIUM CHLORIDE 0.65% NA SOLN 45 ML (OCEAN) PRN (16:29)
--- NOTE | 2021-09-09 12:33 | History & Physical ---
Date of Service September 09, 2021 Impression / Recommendations Impression 20 yo male readmit following medical monitoring for bradycardia and refeeding. Lyltes, phos stable. Feels more hopeful as he is understanding himself and symptoms; needs support and monitoring of inpatient mental health unit pending transfer to an inpatient eating disorder program. (1) MDD (major depressive disorder), recurrent episode, moderate: (2) Post traumatic stress disorder (PTSD): (3) Atypical eating disorder: (4) Severe protein-calorie malnutrition: (5) Bradycardia: The patient was admitted to the [facility] ([facility]) on q15 min checks (behavioral with suicide precautions) for safety. The patient will participate in group, recreational, and milieu therapies and will be offered additional individual and family sessions as clinically appropriate. Repeat labs and EKG in am for referral to residential ED program. He has declined psychiatric medication retrial at this point but is willing to reconsidering depending on advice/progress at ED program. Psychiatric History Identifying Data BHAVESH BENITEZ is a 20-year-old man and [employer] sophmore on an athletic scholarship who currently lives on campus, has a history of depression and anxiety, and was re-admitted on 09/08/21 19:58 on a 201 voluntary commitment following cardiac clearance on the medical floor. He was originally admitted on 09/05/21 and transferred to medical for 24 obs. for bradycardia. Chief Complaint "I still don't want anyone to know I'm here". History of Present Illness Bhavesh states today he never really realized how important nutrition is, just thought his team was focussed on him getting bigger, hadn't thought of food as fuel. States he had some mild GI upset first 1-2 days with refeeding, now "fine". No pedal edema. He states he hasn't spoken with personal coach, parent trainer, or family about his hospitalization thus far. He remains amenable to inpatient treatment for his severe restriction and protein calorie malnutrition. Bhavesh reported a history of depression to Dr. Shipley and this was again confirmed. He reported that his suicidal thoughts worsened due to stress of football and at the time of admission included jumping from a parking garage or stabbing himself with a knife. At one point he actually paced around with a knife in his hand. 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 He continued to endorse multiple vegetative symptoms of depression. He has restricted his intake and when he can't do so, feels need to purge or engaging in excessive exercise beyond his 2 a day athletic practices. Coaches noticed his weight loss and he minimized by stating he was trying a vegan lifestyle. Up until admission only taking in [id number] calories, mainly via granola bars and yogurt. He continues to feel he needs to lose more weight. It's believed he lost 40-50 lbs in 3 months. He has body dysmorphia and sucks in his stomach muscles multiple times a day before he can leave his apartment. In high school he may have experienced short bursts of elevated mood (2-3 days) with decreased need for sleep yet high energy. He also related a history of PTSD related symptoms. Past Psychiatric History Previous Psych History: Previous Psych History: depression, anxiety Outpatient Services: had [facility] intake, was set up to see [facility] program and local therapist focused on eating disorders Previous Psych Admissions: none Do You Have Access To A Gun?: No History of Previous Suicide Attempt: No Describe Attempts in the Past: None Past Medication Trials: fluoxetine (unknown dose) for 3-4 months in high school. [place] it didn't help mood and made him feel "numb" Current Psychiatric Diagnosis: MDD, eating disorder Allergies Allergy/AdvReac Type Severity Reaction Status Date / Time No Known Allergies Allergy Unverified 09/05/21 17:13 Home Medications Medication Instructions Recorded Confirmed Type multivitamin with minerals 1 cap PO DAILY 09/07/21 09/08/21 History omega-3 fatty acids 1,000 mg PO DAILY 09/07/21 09/08/21 History thiamine HCl (vitamin B1) 100 mg 200 mg PO BID 09/07/21 09/08/21 History tablet Family History Family History of: Doesn't Know Family Mental Health History Comment: Maternal Aunt completed suicide, sister has taken medication for depression Alcohol History Hx of Alcohol Use Over the Past 12 Months: No AUDIT Total Score: 0 Smoking Use Have You Smoked or Used Tobacco Products in the Last 30 Days: No Smoking Status: Never smoker Substance History Hx of Prescription Med Misuse Over the Past 12 Months: No Hx of Over the Counter Med Misuse Over the Past 12 Months: No Hx of Inhalent Misuse Over the Past 12 Months: No Hx of Organic Substance Use Over the Past 12 Months: No Hx of Illegal Substances/Street Drug Use Over Past 12 Months: No Problems as a Result of Past Substance Use: None Identified Personal History Living Arrangements: Dorm Childhood: raised in [place], youngest of 5 siblings, did well academically in school. Parents -father lives in [place] and mother lives in [place]. He feels his mother and two of his sisters are supports for him. 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 Marital Status: Single Beliefs That Will Affect Care: None Hx Legal Problems: No Hx Traumatic Life Events: Yes Patient History Medical History Anxiety Depression Depression with suicidal ideation MDD (major depressive disorder), recurrent episode, moderate No pertinent family history Surgical History No pertinent past surgical history Family History Other No pertinent family history Social History Smoking Status: Never smoker Hx Alcohol Use: No Hx Substance Use: No Preferred Language: Hungarian Communication Ability: Effective Recovery Room Nurse Required: No Beliefs That Will Affect Care: None marital status: Single Current Living Situation: Alone Current Living Situation Comment: STUDENT HOUSING current occupational status: student other: [employer] student; plays on football team Feels Safe at Home: Yes Assistive Devices: None Review of Systems Review of Systems: All systems reviewed & are unremarkable except as noted in HPI & below Physical Exam Psychiatric: Orientation: alert and oriented x 3 Apperance: appropriately dressed and appropriately groomed Eye Contact: good eye contact Motor Behavior: no abnormal motor movements Speech: normal rate/rhythm/volume of speech Affect: + depressed affect Mood: + depressed mood Thought Process: goal directed thought process Thought Content: reality based without delusions Suicidal Thoughts: denies suicidal thoughts Homicidal Thoughts: denies homicidal thoughts Hallucinations: no auditory hallucinations and no visual hallucinations Cognition: attention grossly intact and language grossly intact Estimated Intelligence: consistent with education level Insight: + limited insight Judgement: + limited judgement Vital Signs (Past 24 Hours): Last Vital Signs Temp 36.4 C L 09/09/21 06:51 Pulse 43 L 09/09/21 06:52 Resp 16 09/09/21 06:51 BP 108/69 09/09/21 06:52 Exam Statement: A physical exam was performed on the medical floor by the [facility] hospitalist service for the purposes of medical clearance. I accept that physical as correct and adequate for the purposes of the inpatient physical exam. Results & Data ([facility]) Laboratory Results see medical admission Current Inpatient Medications Current Inpatient Medications: Current Inpatient Medications Acetaminophen (Acetaminophen 325 Mg Tab) 650 mg PO Q4H PRN PRN Reason: Headache or Minor Fever Stop: 10/08/21 16:28 Al Hydrox/Mg Hydrox/Simethicone (Aluminum/Magnesium Susp 30 Ml Udc) 30 ml PO Q4H PRN PRN Reason: GI Upset Stop: 10/08/21 16:28 Bismuth Subsalicylate (Bismuth Subsalicylate Liqd 236 Ml) 15 ml PO PRN PRN PRN Reason: Loose Stool Stop: 10/08/21 16:28 Hydroxyzine HCl (Hydroxyzine Hcl 25 Mg Tab) 50 mg PO HSZ PRN PRN Reason: Insomnia Stop: 10/08/21 16:28 Hydroxyzine HCl (Hydroxyzine Hcl 25 Mg Tab) 25 mg PO Q4H PRN PRN Reason: Anxiety Stop: 10/08/21 16:28 Magnesium Hydroxide (Magnesium Hydroxide Susp 30 Ml Udc) 30 ml PO DAILY PRN PRN Reason: Constipation Stop: 10/08/21 16:28 Sodium Chloride (Sodium Chloride 0.65% Na Soln 45 Ml ([place])) 1 - 2 sprays NA PRN PRN PRN Reason: Nasal Dryness/Congestion Stop: 10/08/21 16:28
[2021-09-10 08:26] LABS: BUN Creatinine Ratio 15.5 (10-20); Calcium 9.2 mg/dl (8.5-10.1); Creatinine Clr Calc Pharmacy 152.1 ml/min; Est GFR (African American) 124.4 ml/min; Est GFR (Non-African American) 107.3 ml/min; Magnesium 2.1 mg/dl (1.8-2.4); Phosphorus 4.3 mg/dl (2.5-4.9)
--- NOTE | 2021-09-10 12:22 | Electrocardiogram Report ---
Test Reason : Blood Pressure : / mmHG Vent. Rate : 036 BPM Atrial Rate : 036 BPM P-R Int : 128 ms QRS Dur : 102 ms QT Int : 534 ms P-R-T Axes : 072 076 028 degrees QTc Int : 412 ms Marked sinus bradycardia Nonspecific ST abnormality Abnormal ECG When compared with ECG of 07-SEP-2021 07:37, Nonspecific T wave abnormality now evident in Inferior leads Confirmed by Case Montes De Oca ([id number]) on 09/10/2021 12:22:09 PM Referred By: Michelle Barton Confirmed By:Case Motnes De Oca
--- NOTE | 2021-09-10 13:10 | Psychiatric Progress Note ---
Date of Service September 10, 2021 Impression / Recommendations Impression 20 yo male readmit following medical monitoring for bradycardia and refeeding. Lyltes, phos stable. Feels more hopeful as he is understanding himself and symptoms; needs support and monitoring of inpatient mental health unit pending transfer to an inpatient eating disorder program. 09/10/21: improving (1) MDD (major depressive disorder), recurrent episode, moderate: (2) Post traumatic stress disorder (PTSD): (3) Atypical eating disorder: (4) Severe protein-calorie malnutrition: (5) Bradycardia: 09/10/21: Dr. Tabares (team physician) updated on patient status and pending referral to [facility] unit. Am labs were stable. 09/09/21: [facility] on q15 min checks (behavioral with suicide precautions) for safety. The patient will participate in group, recreational, and milieu therapies and will be offered additional individual and family sessions as clinically appropriate. Repeat labs and EKG in am for referral to residential ED program. He has declined psychiatric medication retrial at this point but is willing to reconsidering depending on advice/progress at ED program. 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 Chief Complaint "I didn't realize how much of my brain issue was my situation". Review of Systems Sleep Information Total Hours of Sleep: 5.5 Meal Information Percent Meal Consumed - Breakfast: 100 Percent Meal Consumed - Lunch: 75 Percent Meal Consumed - Dinner: 100 Subjective Subjective Patient was seen & assessed and interval progress reviewed with treatment team. Patient reports that he feels his mood is improving, referencing being out of his "stressful situation" with pressure of football. He is less preoccupied with food here and urges to restrict aren't as intense. His bradycardia remains asymptomatic. Physical Exam Psychiatric Orientation: alert and oriented x 3 Apperance: appropriately dressed and appropriately groomed Eye Contact: good eye contact Motor Behavior: no abnormal motor movements Speech: normal rate/rhythm/volume of speech Affect: + depressed affect Mood: + depressed mood Thought Process: goal directed thought process Thought Content: reality based without delusions Suicidal Thoughts: denies suicidal thoughts Homicidal Thoughts: denies homicidal thoughts Hallucinations: no auditory hallucinations and no visual hallucinations Cognition: attention grossly intact and language grossly intact Estimated Intelligence: consistent with education level Insight: + limited insight Judgement: + limited judgement Vital Signs (Past 24 Hours) Last Vital Signs Temp 37.4 C 09/09/21 20:04 Pulse 46 L 09/10/21 06:00 Resp 16 09/10/21 06:00 BP 102/59 L 09/10/21 06:00 Results & Data ([facility]) Laboratory Results Laboratory Results - last 24 hr 09/10/21 09/10/21 07:05 07:05 Sodium 141 Potassium 4.0 Chloride 108 H Carbon Dioxide 27 Anion Gap 7.0 BUN 16 Creatinine 1.01 Est Cr Clr Drug Dosing 152.1 Est GFR ( Amer) 124.4 Est GFR (Non-Af Amer) 107.3 BUN/Creatinine Ratio 15.5 Glucose 67 L Calcium 9.2 Cancelled Phosphorus 4.3 Magnesium 2.1 Current Inpatient Medications Current Inpatient Medications: Current Inpatient Medications Acetaminophen (Acetaminophen 325 Mg Tab) 650 mg PO Q4H PRN PRN Reason: Headache or Minor Fever Stop: 10/08/21 16:28 Al Hydrox/Mg Hydrox/Simethicone (Aluminum/Magnesium Susp 30 Ml Udc) 30 ml PO Q4H PRN PRN Reason: GI Upset Stop: 10/08/21 16:28 Bismuth Subsalicylate (Bismuth Subsalicylate Liqd 236 Ml) 15 ml PO PRN PRN PRN Reason: Loose Stool Stop: 10/08/21 16:28 Hydroxyzine HCl (Hydroxyzine Hcl 25 Mg Tab) 50 mg PO HSZ PRN PRN Reason: Insomnia Stop: 10/08/21 16:28 Hydroxyzine HCl (Hydroxyzine Hcl 25 Mg Tab) 25 mg PO Q4H PRN PRN Reason: Anxiety Stop: 10/08/21 16:28 Magnesium Hydroxide (Magnesium Hydroxide Susp 30 Ml Udc) 30 ml PO DAILY PRN PRN Reason: Constipation Stop: 10/08/21 16:28 Sodium Chloride (Sodium Chloride 0.65% Na Soln 45 Ml ([place])) 1 - 2 sprays NA PRN PRN PRN Reason: Nasal Dryness/Congestion Stop: 10/08/21 16:28 Mental Health & Subst Abuse Tx Therapist Name of Therapist: none Jet Operator Name of Jet Operator: none Post Discharge Appointments Primary Care Physician Name Of Family Doctor: ANTOINE
--- NOTE | 2021-09-11 15:24 | Psychiatric Progress Note ---
Date of Service September 11, 2021 Impression / Recommendations Impression 20 yo male readmit following medical monitoring for bradycardia and refeeding. Lyltes, phos stable. Feels more hopeful as he is understanding himself and symptoms; needs support and monitoring of inpatient mental health unit pending transfer to an inpatient eating disorder program. 09/11/21: improving, no evidence of refeeding syndrome thus far. (1) MDD (major depressive disorder), recurrent episode, moderate: (2) Post traumatic stress disorder (PTSD): (3) Atypical eating disorder: (4) Severe protein-calorie malnutrition: (5) Bradycardia: 09/11/21: updated team physician, accepted to [facility] but no bed available so pursuing additional referrals. Repeat labs and EKG in am. 09/10/21: Dr. Tabares (team physician) updated on patient status and pending referral to [facility] unit. Am labs were stable. 09/09/21: [facility] q15 min checks (behavioral with suicide precautions) for safety. The patient will participate in group, recreational, and milieu therapies and will be offered additional individual and family sessions as clinically appropriate. Repeat labs and EKG in am for referral to residential ED program. He has declined psychiatric medication retrial at this point but is willing to reconsidering depending on advice/progress at ED program. 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 Chief Complaint awaiting acceptance to ED unit Review of Systems Sleep Information Total Hours of Sleep: 6 Sleep Comments: pt on q-15 minute checks Meal Information Percent Meal Consumed - Breakfast: 90 Percent Meal Consumed - Lunch: 100 Percent Meal Consumed - Dinner: 100 Subjective Subjective Patient was seen & assessed and interval progress reviewed with nursing and social work. Pulse and BP improved. Weight up 3 lbs from admission (was weighed after breakfast), blind. interactive with peers. ONgoing improvement in mood and mentation. Physical Exam Psychiatric Orientation: alert and oriented x 3 Apperance: appropriately dressed and appropriately groomed Eye Contact: good eye contact Motor Behavior: no abnormal motor movements Speech: normal rate/rhythm/volume of speech Mood: + depressed mood Thought Process: goal directed thought process Thought Content: reality based without delusions Suicidal Thoughts: denies suicidal thoughts Homicidal Thoughts: denies homicidal thoughts Hallucinations: no auditory hallucinations and no visual hallucinations Cognition: attention grossly intact and language grossly intact Estimated Intelligence: consistent with education level Insight: + limited insight Judgement: + limited judgement Vital Signs (Past 24 Hours) Last Vital Signs Temp 36.3 C L 09/11/21 06:54 Pulse 52 L 09/11/21 14:02 Resp 16 09/11/21 06:54 BP 133/66 09/11/21 14:02 Pulse Ox 98 09/10/21 22:05 Results & Data ([facility]) Current Inpatient Medications Current Inpatient Medications: Current Inpatient Medications Acetaminophen (Acetaminophen 325 Mg Tab) 650 mg PO Q4H PRN PRN Reason: Headache or Minor Fever Stop: 10/08/21 16:28 Al Hydrox/Mg Hydrox/Simethicone (Aluminum/Magnesium Susp 30 Ml Udc) 30 ml PO Q4H PRN PRN Reason: GI Upset Stop: 10/08/21 16:28 Bismuth Subsalicylate (Bismuth Subsalicylate Liqd 236 Ml) 15 ml PO PRN PRN PRN Reason: Loose Stool Stop: 10/08/21 16:28 Hydroxyzine HCl (Hydroxyzine Hcl 25 Mg Tab) 50 mg PO HSZ PRN PRN Reason: Insomnia Stop: 10/08/21 16:28 Hydroxyzine HCl (Hydroxyzine Hcl 25 Mg Tab) 25 mg PO Q4H PRN PRN Reason: Anxiety Stop: 10/08/21 16:28 Magnesium Hydroxide (Magnesium Hydroxide Susp 30 Ml Udc) 30 ml PO DAILY PRN PRN Reason: Constipation Stop: 10/08/21 16:28 Sodium Chloride (Sodium Chloride 0.65% Na Soln 45 Ml ([place])) 1 - 2 sprays NA PRN PRN PRN Reason: Nasal Dryness/Congestion Stop: 10/08/21 16:28 Mental Health & Subst Abuse Tx Therapist Name of Therapist: none Senior Game Designer Name of Senior Game Designer: none Post Discharge Appointments Primary Care Physician Name Of Family Doctor: ANTOINE
[2021-09-12 09:08] LABS: BUN Creatinine Ratio 12.2 (10-20); Calcium 8.9 mg/dl (8.5-10.1); Creatinine Clr Calc Pharmacy 149.1 ml/min; Est GFR (African American) 121.5 ml/min; Est GFR (Non-African American) 104.8 ml/min; Magnesium 2.1 mg/dl (1.8-2.4)
[2021-09-12 09:16] LABS: Phosphorus 3.7 mg/dl (2.5-4.9)
--- NOTE | 2021-09-12 13:26 | Electrocardiogram Report ---
Test Reason : Blood Pressure : / mmHG Vent. Rate : 042 BPM Atrial Rate : 042 BPM P-R Int : 126 ms QRS Dur : 096 ms QT Int : 508 ms P-R-T Axes : 080 067 045 degrees QTc Int : 424 ms Marked sinus bradycardia with sinus arrhythmia Abnormal ECG When compared with ECG of 10-SEP-2021 09:04, No significant change was found Confirmed by Case Montes De Oca ([id number]) on 09/12/2021 1:26:16 PM Referred By: Michelle Barton Confirmed By:Case Montes De Oca
--- NOTE | 2021-09-12 14:33 | Hospitalist Consultation ---
Date of Consultation September 12, 2021 Assessment & Plan (1) Bradycardia: - HRs maintaining in 40-50s - Given patient is young, healthy, athletic would expect lower heart rates, and maybe lower with sleep. However, given the extent of his weight loss that could have impacted his HR. As it does appear they are trending more in the higher 40s into 50s as his nutritional status has been improving - Reviewed EKGs and echo -- EKGs with sinus bradycardia with sinus arrhythmia (normal finding). Appears some mild early repolarization however again would be normal given age and health status -- Echo - EF 55-60% with normal wall motions; normal diastolic function; valves largely unremarkable (trace pulmonic valve regurg); mildly dilated L ventricle -- maybe dilated ventricle related to nutritional deficit? However no intervention warranted at this time and could consider repeat echo in 3 months to re-evaluate for any changes - Hemodynamically stable; would recommend periodic EKGs to assess for any changes; maintain vitals, and electrolyte monitoring. EKG for any syncope/profound lightheadedness. Maintain good hydration. - Hospitalist service will continue to follow (2) Disordered eating: - Has lost approx. 20 lbs in a short duration of time due to restrictive eating patterns - Has been tolerating feeds here and monitoring weight - DO NOT discuss weight/weight gain as not to trigger his disorder -- Per review of notes, it appears the patient is reporting less fixation on this - Appreciate nutrition/dietary support; behavioral health support by 3S team (3) MDD (major depressive disorder), recurrent episode, moderate: - Treatment per behavioral staff; Hydroxyzine is ordered PRN - Not currently on anti-depressant; per chart review patient has declined this currently but appears was [facility] [place] [facility] Supervising Physician Co-Signing Physician Notes Attending note: patient seen and reviewed with Thania SANDOVAL. I reviewed chart and labs. patient is doing well, eating more, dietary is controlling his meals and he is compliant evaluated for bradycardia, has sinus bradycardia at times - Bradycardia: check EKG, BMP for electrolytes - Eatin disorder: managed by psychiatry, waiting to go to inpatient treatment center History of Present Illness Reason for Consultation: Bradycardia Attending Physician: Michelle Barton MD History of Present Illness Mr. Cueto is a pleasant 20 y/o male with PMHx of bradycardia, depression/suicidal ideations, and eating disorder who is currently admitted to the behavioral health unit. Pt is undergoing behavioral health treatment and monitoring of weight/dietary intake. He has lost approx. 20 lbs over a short period of time due to severe food restrictions and continued exercise/athletic practices. No signs of refeeding syndrome as he has re-instituted eating here. Patient reports he is tolerating his diet without issue at this time. He does report he periodically gets light headed but no syncope. Tries to maintain good oral intake with water. HRs have largely maintained in 40-50s. Some previous EKGs with HR in mid-30s. Electrolytes/labs have been suitable. He denies any chest pain or shortness of breath. He is awaiting placement for an eating disorder center. Allergies Allergy/AdvReac Type Severity Reaction Status Date / Time No Known Allergies Allergy Unverified 09/05/21 17:13 Home Medications Medication Instructions Recorded Confirmed Type multivitamin with minerals 1 cap PO DAILY 09/07/21 09/08/21 History omega-3 fatty acids 1,000 mg PO DAILY 09/07/21 09/08/21 History thiamine HCl (vitamin B1) 100 mg 200 mg PO BID 09/07/21 09/08/21 History tablet Patient History Medical History Anxiety Depression Depression with suicidal ideation MDD (major depressive disorder), recurrent episode, moderate No pertinent family history Surgical History No pertinent past surgical history Family History Other No pertinent family history Social History Smoking Status: Never smoker Hx Alcohol Use: No Hx Substance Use: No Preferred Language: Slovenian Communication Ability: Effective Freelance Makeup Artist Required: No Beliefs That Will Affect Care: None marital status: Single Current Living Situation: Alone Current Living Situation Comment: STUDENT HOUSING current occupational status: student other: [employer] student; plays on football team Feels Safe at Home: Yes Assistive Devices: None Review of Systems Review of Systems: REVIEW OF SYSTEMS General/Constitutional: Denies fever/chills, fatigue, weakness ENT: Denies visual changes, nasal drainage, hearing loss, sore throat, trouble swallowing Cardiovascular: Denies chest pain, palpitations, edema Respiratory: Denies cough, SOB GI: Denies nausea, vomiting, abdominal pain, constipation, diarrhea : Denies dysuria Musculoskeletal: Denies joint/muscle aches Neurologic: + intermittent lightheadedness but no syncope - intermittent Physical Exam Physical Exam: PHYSICAL EXAM General Appearance: WDWN in NAD who is A&O x 3 HEENT: Head is normocephalic/atraumatic; Hearing grossly intact; Mucous membranes moist; Pharynx negative for exudate/lesions Neck: Supple; Trachea midline Heart: RRR with no M/G/R Lungs: CTA in all lung herrera bilaterally; Respirations unlabored; Neg accessory muscle use Abdomen: Soft, non-tender, non-distended; Positive BS x 4 quadrants Extremities: Neg cyanosis or edema Neurological: Speech clear; Gross motor/sensory function intact; Neg focal neurologic deficits Psychiatric: Appropriate mood/affect Skin: Normal Color; Warm/Dry Results & Data Results & Data ([facility]) Vital Signs (Past 12 Hours) Vital Signs Temp Pulse Pulse Resp BP 09/12/21 14:16 52 L 109/56 L 09/12/21 06:32 55 L 119/73 09/12/21 06:31 36.6 C 56 L 16 107/58 L PG Care Time/CCT Total # of Minutes Spent Total Time Spent with Patient: Total time spent is greater than 50% in coordination of care (as documented) at patient's floor/unit and/or counseling patient: Coding Level of Care Code 30409 Inpt Consult Level 2 Diagnoses Disordered eating F50.9 MDD (major depressive disorder), recurrent episode, moderate F33.1 Bradycardia R00.1
--- NOTE | 2021-09-12 17:28 | Psychiatric Progress Note ---
Date of Service September 12, 2021 Impression / Recommendations Impression 20 yo male readmit following medical monitoring for bradycardia and refeeding. Lyltes, phos stable. Feels more hopeful as he is understanding himself and symptoms; needs support and monitoring of inpatient mental health unit pending transfer to an inpatient eating disorder program. 09/12/21: improving (1) MDD (major depressive disorder), recurrent episode, moderate: (2) Post traumatic stress disorder (PTSD): (3) Atypical eating disorder: (4) Severe protein-calorie malnutrition: (5) Bradycardia: 09/12/21: hospitalist consult appreciated. Discussed his life/interests outside of football and thoughts about same age peer being discharged. 09/11/21: updated team physician, accepted to [facility] but no bed available so pursuing additional referrals. Repeat labs and EKG in am. 09/10/21: Dr. Tabares (team physician) updated on patient status and pending referral to [facility] unit. Am labs were stable. 09/09/21: [facility] on q15 min checks (behavioral with suicide precautions) for safety. The patient will participate in group, recreational, and milieu therapies and will be offered additional individual and family sessions as clinically appropriate. Repeat labs and EKG in am for referral to residential ED program. He has declined psychiatric medication retrial at this point but is willing to reconsidering depending on advice/progress at ED program. 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 Chief Complaint "yeah, I couldn't do all this outside of here.". Review of Systems Sleep Information Total Hours of Sleep: 5.5 Sleep Comments: pt on q-15 minute checks Meal Information Percent Meal Consumed - Breakfast: 100 Percent Meal Consumed - Lunch: 100 Percent Meal Consumed - Dinner: 100 Subjective Subjective Patient was seen & assessed and interval progress reviewed with treatment team. Patient has been patient with referral process for inpatient ED program as continues to report distorted body image/urges to restrict but responds to structure and support of unit. Reviewed labs and EKG results with patient. No swelling. Physical Exam Psychiatric Orientation: alert and oriented x 3 Apperance: appropriately dressed and appropriately groomed Eye Contact: good eye contact Motor Behavior: no abnormal motor movements Speech: normal rate/rhythm/volume of speech Mood: + depressed mood Thought Process: goal directed thought process Thought Content: reality based without delusions Suicidal Thoughts: denies suicidal thoughts Homicidal Thoughts: denies homicidal thoughts Hallucinations: no auditory hallucinations and no visual hallucinations Cognition: attention grossly intact and language grossly intact Estimated Intelligence: consistent with education level Insight: + limited insight Judgement: + limited judgement Vital Signs (Past 24 Hours) Last Vital Signs Temp 36.6 C 09/12/21 06:31 Pulse 52 L 09/12/21 14:16 Resp 16 09/12/21 06:31 BP 109/56 L 09/12/21 14:16 Pulse Ox 98 09/10/21 22:05 Results & Data ([email or web address] Laboratory Results Laboratory Results - last 24 hr 09/12/21 08:28 Sodium 142 Potassium 4.0 Chloride 109 H Carbon Dioxide 28 Anion Gap 5.0 BUN 13 Creatinine 1.03 Est Cr Clr Drug Dosing 149.1 Est GFR ( Amer) 121.5 Est GFR (Non-Af Amer) 104.8 BUN/Creatinine Ratio 12.2 Glucose 77 Calcium 8.9 Phosphorus 3.7 Magnesium 2.1 Current Inpatient Medications Current Inpatient Medications: Current Inpatient Medications Acetaminophen (Acetaminophen 325 Mg Tab) 650 mg PO Q4H PRN PRN Reason: Headache or Minor Fever Stop: 10/08/21 16:28 Al Hydrox/Mg Hydrox/Simethicone (Aluminum/Magnesium Susp 30 Ml Udc) 30 ml PO Q4H PRN PRN Reason: GI Upset Stop: 10/08/21 16:28 Bismuth Subsalicylate (Bismuth Subsalicylate Liqd 236 Ml) 15 ml PO PRN PRN PRN Reason: Loose Stool Stop: 10/08/21 16:28 Hydroxyzine HCl (Hydroxyzine Hcl 25 Mg Tab) 50 mg PO HSZ PRN PRN Reason: Insomnia Stop: 10/08/21 16:28 Hydroxyzine HCl (Hydroxyzine Hcl 25 Mg Tab) 25 mg PO Q4H PRN PRN Reason: Anxiety Stop: 10/08/21 16:28 Magnesium Hydroxide (Magnesium Hydroxide Susp 30 Ml Udc) 30 ml PO DAILY PRN PRN Reason: Constipation Stop: 10/08/21 16:28 Sodium Chloride (Sodium Chloride 0.65% Na Soln 45 Ml ([place])) 1 - 2 sprays NA PRN PRN PRN Reason: Nasal Dryness/Congestion Stop: 10/08/21 16:28 Mental Health & Subst Abuse Tx Therapist Name of Therapist: none Clay [place] Cutting Machine Operator Name of [place] Cutting Machine Operator: none Post Discharge Appointments Primary Care Physician Name Of Family Doctor: [facility]
--- NOTE | 2021-09-13 13:44 | Psychiatric Progress Note ---
Date of Service September 13, 2021 Impression / Recommendations Impression 20 yo male readmit following medical monitoring for bradycardia and refeeding. Lyltes, phos stable. Feels more hopeful as he is understanding himself and symptoms; needs support and monitoring of inpatient mental health unit pending transfer to an inpatient eating disorder program. 09/13/21: mood improved, cooperating with unit meals. (1) MDD (major depressive disorder), recurrent episode, moderate: (2) Post traumatic stress disorder (PTSD): (3) Atypical eating disorder: (4) Severe protein-calorie malnutrition: (5) Bradycardia: 09/13/21: continue current treatment plan. Accepted to [facility] for 09/17/21, other referrals pending. 09/12/21: hospitalist consult appreciated. Discussed his life/interests outside of football and thoughts about same age peer being discharged. 09/11/21: updated team physician, accepted to [facility] but no bed available so pursuing additional referrals. Repeat labs and EKG in am. 09/10/21: Dr. Tabares (team physician) updated on patient status and pending referral to [facility] unit. Am labs were stable. 09/09/21: [facility]) on q15 min checks (behavioral with suicide precautions) for safety. The patient will participate in group, recreational, and milieu therapies and will be offered additional individual and family sessions as clinically appropriate. Repeat labs and EKG in am for referral to residential ED program. He has declined psychiatric medication retrial at this point but is willing to reconsidering depending on advice/progress at ED program. 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 Chief Complaint "I'm cool". Review of Systems Sleep Information Total Hours of Sleep: 6 Sleep Comments: pt on q-15 minute check Meal Information Percent Meal Consumed - Breakfast: 100 Percent Meal Consumed - Lunch: 100 Percent Meal Consumed - Dinner: 90 Subjective Subjective Patient was seen & assessed and interval progress reviewed with nursing and social work. Cooperative with unit routines. Denies recurrence of SI. Patient aware of status of ED referrals. denies orthostasis. 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 Physical Exam Psychiatric Orientation: alert and oriented x 3 Apperance: appropriately dressed and appropriately groomed Eye Contact: good eye contact Motor Behavior: no abnormal motor movements Speech: normal rate/rhythm/volume of speech Mood: + depressed mood Thought Process: goal directed thought process Thought Content: reality based without delusions Suicidal Thoughts: denies suicidal thoughts Homicidal Thoughts: denies homicidal thoughts Hallucinations: no auditory hallucinations and no visual hallucinations Cognition: attention grossly intact and language grossly intact Estimated Intelligence: consistent with education level Vital Signs (Past 24 Hours) Last Vital Signs Temp 36.5 C 09/13/21 06:52 Pulse 61 09/13/21 06:53 Resp 16 09/13/21 06:52 BP 116/68 09/13/21 06:53 Pulse Ox 98 09/10/21 22:05 Results & Data ([facility]) Current Inpatient Medications Current Inpatient Medications: Current Inpatient Medications Acetaminophen (Acetaminophen 325 Mg Tab) 650 mg PO Q4H PRN PRN Reason: Headache or Minor Fever Stop: 10/08/21 16:28 Al Hydrox/Mg Hydrox/Simethicone (Aluminum/Magnesium Susp 30 Ml Udc) 30 ml PO Q4H PRN PRN Reason: GI Upset Stop: 10/08/21 16:28 Bismuth Subsalicylate (Bismuth Subsalicylate Liqd 236 Ml) 15 ml PO PRN PRN PRN Reason: Loose Stool Stop: 10/08/21 16:28 Hydroxyzine HCl (Hydroxyzine Hcl 25 Mg Tab) 50 mg PO HSZ PRN PRN Reason: Insomnia Stop: 10/08/21 16:28 Hydroxyzine HCl (Hydroxyzine Hcl 25 Mg Tab) 25 mg PO Q4H PRN PRN Reason: Anxiety Stop: 10/08/21 16:28 Magnesium Hydroxide (Magnesium Hydroxide Susp 30 Ml Udc) 30 ml PO DAILY PRN PRN Reason: Constipation Stop: 10/08/21 16:28 Sodium Chloride (Sodium Chloride 0.65% Na Soln 45 Ml ([place])) 1 - 2 sprays NA PRN PRN PRN Reason: Nasal Dryness/Congestion Stop: 10/08/21 16:28 Mental Health & Subst Abuse Tx Therapist Name of Therapist: none Clinical Informatics Strategist Name of Clinical Informatics Strategist: GAIL Solorzano Phone Number for Clinical Informatics Strategist: [phone] Case Management Appointment Comment: Follow up as needed Post Discharge Appointments Primary Care Physician Name Of Family Doctor: ANTOINE Miranda Primary Care Provider Appointment Comment: Follow up as needed Contact Information Discharge Discharge Address: [address] [place] [address] [place], [place] [address]
[2021-09-14 07:57] LABS: BUN Creatinine Ratio 11.8 (10-20); Calcium 9.1 mg/dl (8.5-10.1); Creatinine Clr Calc Pharmacy 149.1 ml/min; Est GFR (African American) 121.5 ml/min; Est GFR (Non-African American) 104.8 ml/min; Magnesium 2.1 mg/dl (1.8-2.4); Phosphorus 3.9 mg/dl (2.5-4.9)
--- NOTE | 2021-09-14 13:47 | Electrocardiogram Report ---
Test Reason : Blood Pressure : / mmHG Vent. Rate : 034 BPM Atrial Rate : 034 BPM P-R Int : 150 ms QRS Dur : 110 ms QT Int : 520 ms P-R-T Axes : 075 077 070 degrees QTc Int : 390 ms Marked sinus bradycardia Nonspecific ST and T wave abnormality Abnormal ECG When compared with ECG of 11-SEP-2021 17:08, Nonspecific T wave abnormality now evident in Inferior leads Confirmed by Case Montes De Oca ([id number]) on 09/14/2021 1:46:51 PM Referred By: Michelle Barton Confirmed By:Case Montes De Oca
--- NOTE | 2021-09-14 15:01 | Psychiatric Progress Note ---
Date of Service September 14, 2021 Impression / Recommendations Impression 20 yo male readmit following medical monitoring for bradycardia and refeeding. Lyltes, phos stable. Feels more hopeful as he is understanding himself and symptoms; needs support and monitoring of inpatient mental health unit pending transfer to an inpatient eating disorder program. 09/14/21: consistent weight gain (blinded) Plan: continue current treatment plan. 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 Chief Complaint awaiting ED treatment Review of Systems Sleep Information Total Hours of Sleep: 5.75 Sleep Comments: pt on q-15 minute check Meal Information Percent Meal Consumed - Breakfast: 100 Percent Meal Consumed - Lunch: 100 Percent Meal Consumed - Dinner: 100 Subjective Subjective Patient was seen & assessed and interval progress reviewed with treatment team. Patient continues to benefit from the unit structure. Notes that his meals are typically "the same thing everyday" so actually eating more variety. his bradycardia remains asymptomatic and appears improved except when lying flat for EKG. Physical Exam Psychiatric Orientation: alert and oriented x 3 Apperance: appropriately dressed and appropriately groomed Eye Contact: good eye contact Motor Behavior: no abnormal motor movements Speech: normal rate/rhythm/volume of speech Mood: + depressed mood Thought Process: goal directed thought process Thought Content: reality based without delusions Suicidal Thoughts: denies suicidal thoughts Homicidal Thoughts: denies homicidal thoughts Hallucinations: no auditory hallucinations and no visual hallucinations Cognition: attention grossly intact and language grossly intact Estimated Intelligence: consistent with education level Vital Signs (Past 24 Hours) Last Vital Signs Temp 36.5 C 09/14/21 06:00 Pulse 53 L 09/14/21 06:49 Resp 14 09/14/21 06:00 BP 118/69 09/14/21 06:49 Pulse Ox 98 09/10/21 22:05 Results & Data ([facility]) Laboratory Results Laboratory Results - last 24 hr 09/14/21 07:12 Sodium 141 Potassium 4.0 Chloride 109 H Carbon Dioxide 29 Anion Gap 3.0 BUN 12 Creatinine 1.03 Est Cr Clr Drug Dosing 149.1 Est GFR ( Amer) 121.5 Est GFR (Non-Af Amer) 104.8 BUN/Creatinine Ratio 11.8 Glucose 77 Calcium 9.1 Phosphorus 3.9 Magnesium 2.1 Diagnostic Findings EKG--marked sinus bradycardia 32. Current Inpatient Medications Current Inpatient Medications: Current Inpatient Medications Acetaminophen (Acetaminophen 325 Mg Tab) 650 mg PO Q4H PRN PRN Reason: Headache or Minor Fever Stop: 10/08/21 16:28 Al Hydrox/Mg Hydrox/Simethicone (Aluminum/Magnesium Susp 30 Ml Udc) 30 ml PO Q4H PRN PRN Reason: GI Upset Stop: 10/08/21 16:28 Bismuth Subsalicylate (Bismuth Subsalicylate Liqd 236 Ml) 15 ml PO PRN PRN PRN Reason: Loose Stool Stop: 10/08/21 16:28 Hydroxyzine HCl (Hydroxyzine Hcl 25 Mg Tab) 50 mg PO HSZ PRN PRN Reason: Insomnia Stop: 10/08/21 16:28 Hydroxyzine HCl (Hydroxyzine Hcl 25 Mg Tab) 25 mg PO Q4H PRN PRN Reason: Anxiety Stop: 10/08/21 16:28 Magnesium Hydroxide (Magnesium Hydroxide Susp 30 Ml Udc) 30 ml PO DAILY PRN PRN Reason: Constipation Stop: 10/08/21 16:28 Sodium Chloride (Sodium Chloride 0.65% Na Soln 45 Ml ([place])) 1 - 2 sprays NA PRN PRN PRN Reason: Nasal Dryness/Congestion Stop: 10/08/21 16:28 Mental Health & Subst Abuse Tx Therapist Name of Therapist: none Automotive Glass Installer Name of Automotive Glass Installer: GAIL Solorzano Phone Number for Automotive Glass Installer: [phone] Case Management Appointment Comment: Follow up as needed Post Discharge Appointments Primary Care Physician Name Of Family Doctor: ANTOINE Miranda Primary Care Provider Appointment Comment: Follow up as needed Contact Information Discharge Discharge Address: [address] [place] [id number]
--- NOTE | 2021-09-15 16:09 | Psychiatric Progress Note ---
Date of Service September 15, 2021 Impression / Recommendations Impression 20 yo male readmit following medical monitoring for bradycardia and refeeding. Labwork has been stable and reassuring. Feels more hopeful as he is understanding himself and symptoms; needs support and monitoring of inpatient mental health unit pending transfer to an inpatient eating disorder program given ongoing stressors outside of the hospital in which SI would likely re- emerge and given acuity of eating disorder symptoms and likelihood of return to severe restriction. 09/15/21: consistent weight gain (blinded) Plan: reviewed interim notes from Dr. Barton. Continue current treatment plan. (1) MDD (major depressive disorder), recurrent episode, moderate: (2) Post traumatic stress disorder (PTSD): (3) Atypical eating disorder: (4) Severe protein-calorie malnutrition: (5) Bradycardia: 09/15/21: continue current treatment. Some new T waves changes on EKG yesterday so after discussing with hospitalist JAIME, re-ordered new EKG for today which showed some changes but these findings are most often benign in someone his age and without symptoms. The hospitalists will also follow-up again with Bhavesh. 09/14/21: continue current treatment plan. 09/13/21: continue current treatment plan. Accepted to [facility] for 09/17/21, other referrals pending. 09/12/21: hospitalist consult appreciated. Discussed his life/interests outside of football and thoughts about same age peer being discharged. 09/11/21: updated team physician, accepted to [facility] but no bed available so pursuing additional referrals. Repeat labs and EKG in am. 09/10/21: Dr. Tabares (team physician) updated on patient status and pending referral to [facility] unit. Am labs were stable. 09/09/21: [facility]) on q15 min checks (behavioral with suicide precautions) for safety. The patient will participate in group, recreational, and milieu therapies and will be offered additional individual and family sessions as clinically appropriate. Repeat labs and EKG in am for referral to residential ED program. He has declined psychiatric medication retrial at this point but is willing to reconsidering depending on advice/progress at ED program. 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 Chief Complaint "I'm feeling better being away from the stressors at school". Review of Systems Sleep Information Total Hours of Sleep: 6 Sleep Comments: pt on q-15 minute check Meal Information Percent Meal Consumed - Breakfast: 100 Percent Meal Consumed - Lunch: 100 Percent Meal Consumed - Dinner: 100 Subjective Subjective Patient was seen & assessed and interval progress reviewed with treatment team nursing and social work. Bhavesh notes ongoing depression but improvement in SI which he attributes to being away from the stressors of football. He denies any physical complaints including no cardiac symptoms, no palpitations, no dizziness, no SOB, no lightheadedness and no nausea/vomiting or constipation. He's been eating well. Remains agreeable with plan for transfer to [facility] eating disorders inpatient program once a bed is available. Remains uninterested in starting any medications. Physical Exam Psychiatric Orientation: alert and oriented x 3 Apperance: appropriately dressed and appropriately groomed Eye Contact: good eye contact Motor Behavior: no abnormal motor movements Speech: normal rate/rhythm/volume of speech Affect: + depressed affect Mood: + depressed mood Thought Process: goal directed thought process Thought Content: reality based without delusions Suicidal Thoughts: denies suicidal thoughts Homicidal Thoughts: denies homicidal thoughts Hallucinations: no auditory hallucinations and no visual hallucinations Cognition: attention grossly intact and language grossly intact Estimated Intelligence: consistent with education level Insight: + fair insight Judgement: + fair judgement Vital Signs (Past 24 Hours) Last Vital Signs Temp 36.8 C 09/15/21 14:55 Pulse 55 L 09/15/21 14:55 Resp 16 09/15/21 14:55 BP 118/61 09/15/21 14:55 Pulse Ox 98 09/14/21 19:01 Results & Data ([facility]) Current Inpatient Medications Current Inpatient Medications: Current Inpatient Medications Acetaminophen (Acetaminophen 325 Mg Tab) 650 mg PO Q4H PRN PRN Reason: Headache or Minor Fever Stop: 10/08/21 16:28 Al Hydrox/Mg Hydrox/Simethicone (Aluminum/Magnesium Susp 30 Ml Udc) 30 ml PO Q4H PRN PRN Reason: GI Upset Stop: 10/08/21 16:28 Bismuth Subsalicylate (Bismuth Subsalicylate Liqd 236 Ml) 15 ml PO PRN PRN PRN Reason: Loose Stool Stop: 10/08/21 16:28 Hydroxyzine HCl (Hydroxyzine Hcl 25 Mg Tab) 50 mg PO HSZ PRN PRN Reason: Insomnia Stop: 10/08/21 16:28 Hydroxyzine HCl (Hydroxyzine Hcl 25 Mg Tab) 25 mg PO Q4H PRN PRN Reason: Anxiety Stop: 10/08/21 16:28 Magnesium Hydroxide (Magnesium Hydroxide Susp 30 Ml Udc) 30 ml PO DAILY PRN PRN Reason: Constipation Stop: 10/08/21 16:28 Sodium Chloride (Sodium Chloride 0.65% Na Soln 45 Ml ([place])) 1 - 2 sprays NA PRN PRN PRN Reason: Nasal Dryness/Congestion Stop: 10/08/21 16:28 Mental Health & Subst Abuse Tx Therapist Name of Therapist: none Egg Trayer Name of Egg Trayer: GAIL Solorzano Phone Number for Egg Trayer: [phone] Case Management Appointment Comment: Follow up as needed Post Discharge Appointments Primary Care Physician Name Of Family Doctor: ANTOINE Miranda Primary Care Provider Appointment Comment: Follow up as needed Contact Information Discharge Discharge Address: [address] [place] [address] , [place] [address]
[2021-09-16 08:02] LABS: Hematocrit (blood only) 41.1 % (42-52); Hemoglobin 13.8 g/dL (14.0-18.0); Mean Corpuscular Hemoglobin 30.3 pg (25-34); Mean Corpuscular Hgb Conc 33.6 g/dL (32-36); Mean Corpuscular Volume 90.3 fL (80-100); Mean Platelet Volume 10.7 fL (7.4-10.4); Platelet Count 150 K/uL (130-400); RDW Coefficient of Variation 13.1 % (11.5-14.5); RDW Standard Deviation 42.8 fL (36.4-46.3); Red Blood Count 4.55 M/uL (4.7-6.1); White Blood Count 2.49 K/uL (4.8-10.8)
[2021-09-16 08:17] LABS: Albumin Level 3.4 gm/dl (3.4-5.0); Creatinine Clr Calc Pharmacy 147.7 ml/min; Est GFR (African American) 120.1 ml/min; Est GFR (Non-African American) 103.6 ml/min; Magnesium 2.1 mg/dl (1.8-2.4); Potassium 4.3 mmol/L (3.5-5.1)
[2021-09-16 08:22] LABS: Basophils # (auto) 0.02 K/uL (0-0.2); Basophils % (auto) 0.8 %; Eosinophils # (auto) 0.05 K/uL (0-0.5); Lymphocytes % (auto) 56.2 %; Monocytes # (auto) 0.19 K/uL (0.11-0.59); Monocytes % (auto) 7.6 %; Neutrophils # (auto) 0.83 K/uL (1.4-6.5); Neutrophils % (auto) 33.4 %
[2021-09-16 08:28] LABS: Bilirubin,Total 0.7 mg/dl (0.2-1); Globulin 3.5 gm/dl (2.5-4.0); Phosphorus 3.9 mg/dl (2.5-4.9); Thyroid Stimulating Hormone 0.855 uIu/ml (0.300-4.500); Total Protein 6.9 gm/dl (6.4-8.2)
[2021-09-16 09:41] LABS: Iron 102 mcg/dl (35-175); Total Iron Binding Capacity 246 mcg/dl (250-450); Transferrin 192 mg/dl (200-360); Transferrin (FE) Percent Satur 38 % (20-50)
--- NOTE | 2021-09-16 15:09 | Psychiatric Progress Note ---
Date of Service September 16, 2021 Impression / Recommendations Impression 20 yo male readmit following medical monitoring for bradycardia and refeeding. Labwork has been stable and reassuring. Feels more hopeful as he is understanding himself and symptoms; needs support and monitoring of inpatient mental health unit pending transfer to an inpatient eating disorder program given ongoing stressors outside of the hospital in which SI would likely re- emerge and given acuity of eating disorder symptoms and likelihood of return to severe restriction. Showing progress in terms of eating more and no longer experiencing SI. Continues to have depression and cognitive distortions and emotional challenges associated with his desire to restrict and eating disorder. Reviewed labwork and EKG and hospitalist providers reviewed as well and no acute concerns, remains medically stable and appropriate for referral for specialized inpatient eating disorder treatment. Continues to be very motivated, insightful and honest about his eating disorder symptoms and desire for treatment. (1) MDD (major depressive disorder), recurrent episode, moderate: (2) Post traumatic stress disorder (PTSD): (3) Atypical eating disorder: (4) Severe protein-calorie malnutrition: (5) Bradycardia: 09/16/21: reviewed recent labwork and EKGs with hospitalist provider. Low ANC, RBC, WBC, Hgb, Hct all expected with nutritional deficiency and impact on bone marrow production. EKG with no acute findings or concerns. Goal remains for inpatient specialized eating disorder treatment. 09/15/21: continue current treatment. Some new T waves changes on EKG yesterday so after discussing with hospitalist JAIME, re-ordered new EKG for today which showed some changes but these findings are most often benign in someone his age and without symptoms. The hospitalists will also follow-up again with Bhavesh. 09/14/21: continue current treatment plan. 09/13/21: continue current treatment plan. Accepted to [facility] for 09/17/21, other referrals pending. 09/12/21: hospitalist consult appreciated. Discussed his life/interests outside of football and thoughts about same age peer being discharged. 09/11/21: updated team physician, accepted to [facility] but no bed available so pursuing additional referrals. Repeat labs and EKG in am. 09/10/21: Dr. Tabares (team physician) updated on patient status and pending referral to [facility] unit. Am labs were stable. 09/09/21: The patient was admitted to the [facility] (locked inpatient mental health unit) on q15 min checks (behavioral with suicide precautions) for safety. The patient will participate in group, recreational, and milieu therapies and will be offered additional individual and family sessions as clinically appropriate. Repeat labs and EKG in am for referral to residential ED program. He has declined psychiatric medication retrial at this point but is willing to reconsidering depending on advice/progress at ED program. 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 Chief Complaint "My brain is definitely making it harder to eat ". Review of Systems Sleep Information Total Hours of Sleep: 5.5 Sleep Comments: pt on q-15 minute check Meal Information Percent Meal Consumed - Breakfast: 100 Percent Meal Consumed - Lunch: 90 Percent Meal Consumed - Dinner: 90 Subjective Subjective Patient was seen & assessed and interval progress reviewed with treatment team nursing and social work. Watched football this morning and napping this afternoon. His mood continues to improve and no SI currently. Discussed that as he has been eating more his brain and thoughts have been more intrusive in terms of telling him he's eating too much or making him feel irritable towards himself. He has also been having more thoughts of body dysmorphia as he feels he has been gaining weight and doesn't like the way he looks. Discussed that he's doing well working to distract from these thoughts and hasn't purged at all, continues to eat and hasn't done any excess exercise. He acknowledged that initially he was so hungry that it was easier to eat and while he still has a good appetite the thoughts associated with the eating disorder can make it difficult. He insightfully shared that sometimes he donn with the distress by telling himself he can restrict again and re-lose the weight after he's out of the hospital. He wants to get better and remains motivated for treatment but acknowledges the challenge of battling these thoughts. We also discussed some of the stressors prior to admission including that he has always been someone who has very high expectations for himself in terms fo academically, socially and with regard to football. The challenge has been that his weight became such a huge focus in football and resulted in being critiqued constantly for his weight. He felt this almost lead him to do the opposite and restrict even more in reaction to this at times. Physical Exam Psychiatric Orientation: alert and oriented x 3 Apperance: appropriately dressed and appropriately groomed Eye Contact: good eye contact Motor Behavior: no abnormal motor movements Speech: normal rate/rhythm/volume of speech Affect: + depressed affect Mood: + depressed mood Thought Process: goal directed thought process Thought Content: reality based without delusions Suicidal Thoughts: denies suicidal thoughts Homicidal Thoughts: denies homicidal thoughts Hallucinations: no auditory hallucinations and no visual hallucinations Cognition: attention grossly intact and language grossly intact Estimated Intelligence: consistent with education level Insight: good insight Judgement: + fair judgement Vital Signs (Past 24 Hours) Last Vital Signs Temp 36.3 C L 09/16/21 06:00 Pulse 60 09/16/21 06:31 Resp 14 09/16/21 06:00 BP 123/76 09/16/21 06:31 Pulse Ox 97 09/15/21 20:39 Results & Data ([facility]) Laboratory Results Laboratory Results - last 24 hr 09/16/21 09/16/21 09/16/21 07:52 07:52 07:52 WBC 2.49 L RBC 4.55 L Hgb 13.8 L Hct 41.1 L MCV 90.3 MCH 30.3 MCHC 33.6 RDW Std Deviation 42.8 RDW Coeff of Teri 13.1 Plt Count 150 MPV 10.7 H Immature Gran % (Auto) 0.0 Neut % (Auto) 33.4 Lymph % (Auto) 56.2 S[place]ent % (Auto) 7.6 Eos % (Auto) 2.0 Baso % (Auto) 0.8 Neut # (Auto) 0.83 L* Lymph # (Auto) 1.40 Sargent # (Auto) 0.19 Eos # (Auto) 0.05 Baso # (Auto) 0.02 Immature Gran # (Auto) 0.00 Peripher Smr Path Cons Pending Sodium 143 Potassium 4.3 Chloride 110 H Carbon Dioxide 28 Anion Gap 6.0 BUN 11 Creatinine 1.04 Est Cr Clr Drug Dosing 147.7 Est GFR ( Amer) 120.1 Est GFR (Non-Af Amer) 103.6 Fasting Glucose 78 Calcium 9.0 Phosphorus 3.9 Magnesium 2.1 Iron 102 TIBC 246 L Transferrin 192 L Transferrin % Sat 38 Total Bilirubin 0.7 AST 13 L ALT 17 Alkaline Phosphatase 76 Total Protein 6.9 Albumin 3.4 Globulin 3.5 Albumin/Globulin Ratio 1.0 TSH 0.855 Current Inpatient Medications Current Inpatient Medications: Current Inpatient Medications Acetaminophen (Acetaminophen 325 Mg Tab) 650 mg PO Q4H PRN PRN Reason: Headache or Minor Fever Stop: 10/08/21 16:28 Al Hydrox/Mg Hydrox/Simethicone (Aluminum/Magnesium Susp 30 Ml Udc) 30 ml PO Q4H PRN PRN Reason: GI Upset Stop: 10/08/21 16:28 Bismuth Subsalicylate (Bismuth Subsalicylate Liqd 236 Ml) 15 ml PO PRN PRN PRN Reason: Loose Stool Stop: 10/08/21 16:28 Hydroxyzine HCl (Hydroxyzine Hcl 25 Mg Tab) 50 mg PO HSZ PRN PRN Reason: Insomnia Stop: 10/08/21 16:28 Hydroxyzine HCl (Hydroxyzine Hcl 25 Mg Tab) 25 mg PO Q4H PRN PRN Reason: Anxiety Stop: 10/08/21 16:28 Magnesium Hydroxide (Magnesium Hydroxide Susp 30 Ml Udc) 30 ml PO DAILY PRN PRN Reason: Constipation Stop: 10/08/21 16:28 Sodium Chloride (Sodium Chloride 0.65% Na Soln 45 Ml ([place])) 1 - 2 sprays NA PRN PRN PRN Reason: Nasal Dryness/Congestion Stop: 10/08/21 16:28 Mental Health & Subst Abuse Tx Therapist Name of Therapist: none Clinical Study Manager Name of Clinical Study Manager: GAIL Solorzano Phone Number for Clinical Study Manager: [phone] Case Management Appointment Comment: Follow up as needed Post Discharge Appointments Primary Care Physician Name Of Family Doctor: ANTOINE Miranda Primary Care Provider Appointment Comment: Follow up as needed Contact Information Discharge Discharge Address: [address] [place] [id number]
--- NOTE | 2021-09-16 19:16 | Hospitalist Progress Note ---
Date of Service September 16, 2021 Assessment & Plan (1) Bradycardia: Plan: - HRs maintaining in 40-60s - Given patient is young, healthy, athletic would expect lower heart rates, and maybe lower with sleep. However, given the extent of his weight loss that could have impacted his HR. As it does appear they are trending more in the higher 40s into 60s as his nutritional status has been improving -- Reports no lightheadedness or dizziness - with severe nutritional restriction there is increased parasympathetic (vagal activity) with unchanged sympathetic tone that can cause dizziness which he did endorse some previously but does state that has resolved and he is gaining weight - Reviewed EKGs and echo -- EKGs with sinus bradycardia with sinus arrhythmia (normal finding). Appears some mild early repolarization however again would be normal given age and health status -- Most recent EKGs with some T wave changes however are present on some previous ones and then one with PACs/bigemy - no acute intervention is needed - no chest pain, SOB, lightheadedness/dizziness -- Echo - EF 55-60% with normal wall motions; normal diastolic function; valves largely unremarkable (trace pulmonic valve regurg); mildly dilated L ventricle -- maybe dilated ventricle related to nutritional deficit? However no intervention warranted at this time and could consider repeat echo in 3 months to re-evaluate for any changes - Hemodynamically stable; would recommend periodic EKGs to assess for any changes; maintain vitals, and electrolyte monitoring. EKG for any syncope/profound lightheadedness. Maintain good hydration. - Hospitalist service will continue to follow (2) Leukopenia: Plan: - WBC at 2.49 and Hgb 13.8 (normocytic); platelets are WNL -- Neutrophils at 0.83 - Pt does not endorse any signs/symptoms of illness - Leukopenia is relatively common in the setting of eating disorders; thrombocytopenia is possible but less common which fits this picture - Suspect this is more in the setting of nutritional deficits as patient lost 50 lbs in 3 months. As severe weight loss can cause bone marrow to be unable to sustain normal functioning resulting in hematological changes. One study shows about 1/3 of those with anorexia or severe restrictive eating disorders have anemias/neutropenias (and thrombocytopenia is relatively rare). These findings tend to disappear completely and rapidily after significant refeeding - B12 is WNL; folate is low normal; iron WNL (slightly low TIBC/transferrin) - suspect these will continue to improve with dietary support - Recommend continued nutritional support and surveillance of CBC and neutrophil counts - maybe once weekly CBC with differentials until stabilized - Would recommend hematology referral this can be done as an outpatient - even if resolves with nutritional support may be worth establishment for any additional testing - Peripheral smear is pending to better determine any abnormalities - pending these results could consider further testing (3) Disordered eating: Plan: - Has lost approx. 50 lbs in a short duration of time (about 10-15 pounds a month x 2 months then rapid loss over one month) - due to restrictive eating patterns and excessive exercise - Has been tolerating feeds here and monitoring weight - DO NOT discuss weight/weight gain as not to trigger his disorder -- Per review of notes, it appears the patient is reporting less fixation on this - Appreciate nutrition/dietary support; behavioral health support by 3S team (4) MDD (major depressive disorder), recurrent episode, moderate: Plan: - Treatment per behavioral staff; Hydroxyzine is ordered PRN - Not currently on anti-depressant; per chart review patient has declined this currently but appears was on Prozac when back in [place] ([facility]) Plan: - Pending peripheral smear - suspect bradycardia and neutropenia in the setting of severe dietary restrictions/rapid weight loss. No signs of infection. Unless peripheral smear is concerning would recommend surveillance with weekly CBC with differential to monitor and hematology referral (if unchanged even with nutritional support recommend sooner hematology referral) - Hospitalist team will continue to follow Admission and Anticipated Discharge Date Admission Date: September 08, 2021 Subjective Pt reports feeling well today. Reports no dizziness or lightheadedness. No signs of acute illness/infection. Did discuss his labwork today to keep him aware and the reasoning of why these values can be present. He does not report a known blood disorder. He is gaining weight. HRs are around [id number]. Lower in evenings and overnights which is to be expected. Tolerated a diet and enjoyed watching the football game yesterday. Verbalizes no acute complaints Physical Exam Physical Exam: PHYSICAL EXAM General Appearance: WDWN in NAD who is A&O x 3 HEENT: Head is normocephalic/atraumatic; Hearing grossly intact; Mucous membranes moist; Pharynx negative for exudate/lesions Neck: Supple; Trachea midline Heart: RRR with no M/G/R Lungs: CTA in all lung herrera bilaterally; Respirations unlabored; Neg accessory muscle use Abdomen: Soft, non-tender, non-distended; Positive BS x 4 quadrants Extremities: Neg cyanosis or edema Neurological: Speech clear; Gross motor/sensory function intact; Neg focal neurologic deficits Psychiatric: Appropriate mood/affect Skin: Normal Color; Warm/Dry PG Care Time/CCT Total # of Minutes Spent Total Time Spent with Patient: Total time spent is greater than 50% in coordination of care (as documented) at patient's floor/unit and/or counseling patient: Coding Level of Care Code 68598 Inpt Consult Level 2 Diagnoses Bradycardia R00.1 Disordered eating F50.9 MDD (major depressive disorder), recurrent episode, moderate F33.1 Leukopenia D72.819
--- NOTE | 2021-09-16 23:13 | Electrocardiogram Report ---
Test Reason : Blood Pressure : / mmHG Vent. Rate : 038 BPM Atrial Rate : 038 BPM P-R Int : 122 ms QRS Dur : 100 ms QT Int : 504 ms P-R-T Axes : 080 074 050 degrees QTc Int : 400 ms Marked sinus bradycardia When compared with ECG of 14-SEP-2021 08:59, No significant change Confirmed by Bryan Perez ([id number]) on 09/16/2021 11:13:11 PM Referred By: Michelle aBrton Confirmed By:Bryan Perez
--- NOTE | 2021-09-17 10:15 | Hospitalist Progress Note ---
Date of Service September 17, 2021 Assessment & Plan (1) Bradycardia: Plan: - HRs maintaining in 40-60s - Given patient is young, healthy, athletic would expect lower heart rates, and maybe lower with sleep. However, given the extent of his weight loss that could have impacted his HR. As it does appear they are trending more in the higher 40s into 60s as his nutritional status has been improving - Reports lightheadedness seemingly associated with position change but resolves within seconds - with severe nutritional restriction there is increased parasympathetic (vagal activity) with unchanged sympathetic tone that can cause dizziness which he did endorse some previously but does state that has resolved and he is gaining weight - EKGs with sinus bradycardia with sinus arrhythmia (normal finding). Appears some mild early repolarization however again would be normal given age and health status - Most recent EKGs with some T wave changes however are present on some previous ones and then one with PACs/bigemy - no acute intervention is needed - no chest pain, SOB, lightheadedness/dizziness - Echo - EF 55-60% with normal wall motions; normal diastolic function; valves largely unremarkable (trace pulmonic valve regurg); mildly dilated L ventricle - related to nutritional deficit? However no intervention warranted at this time and could consider repeat echo in 3 months to re-evaluate for any changes - Hemodynamically stable; would recommend periodic EKGs to assess for any changes; maintain vitals, and electrolyte monitoring. EKG for any syncope/profound lightheadedness. Maintain good hydration. (2) Leukopenia: Plan: - WBC at 2.49 and Hgb 13.8 (normocytic); platelets are WNL - Neutrophils at 0.83 as of labs on 09/16 - Pt does not endorse any signs/symptoms of infection/afebrile - Leukopenia is relatively common in the setting of eating disorders - - Suspect this is more in the setting of nutritional deficits as patient lost 50 lbs in 3 months. As severe weight loss can cause bone marrow to be unable to sustain normal functioning resulting in hematological changes. One study shows about 1/3 of those with anorexia or severe restrictive eating disorders have anemias/neutropenias which resolve w/ refeeding - B12 is WNL; folate is low normal; iron WNL (slightly low TIBC/transferrin) - suspect these will continue to improve with dietary support - Recommend continued nutritional support and surveillance of CBC and neutrophil counts - maybe once weekly CBC with differentials until stabilized - Would recommend hematology referral this can be done as an outpatient - even if resolves with nutritional support may be worth establishment for any additional testing - Peripheral smear reveals findings c/w absolute neutropenia which correlates with his clinical picture (3) Disordered eating: Plan: - Has lost approx. 50 lbs in a short duration of time (about 10-15 pounds a month x 2 months then rapid loss over one month) - due to restrictive eating patterns and excessive exercise - Has been tolerating feeds here and monitoring weight - DO NOT discuss weight/weight gain as not to trigger his disorder -- Per review of notes, it appears the patient is reporting less fixation on this - Appreciate nutrition/dietary support; behavioral health support by 3S team (4) MDD (major depressive disorder), recurrent episode, moderate: Plan: - Treatment per behavioral staff; Hydroxyzine is ordered PRN - Not currently on anti-depressant; per chart review patient has declined this currently but appears was on Prozac when back in [place] (home state) Plan: Suspect bradycardia and neutropenia in the setting of severe dietary restrictions/rapid weight loss. No signs of infection. Would recommend surveillance with weekly CBC with differential to monitor and hematology referral (if unchanged even with nutritional support recommend sooner hematology referral). Since patient has remained medically stable and peripheral smear demonstrates no other concerning findings, medicine will sign off. Will do periodic chart checks for the remainder of hospitalization. Please re-consult if the need should arise. Thank you for allowing us to participate in this patient's care. Admission and Anticipated Discharge Date Admission Date: September 08, 2021 Supervising Physician Co-Signing Physician Notes Attending Attestation: Chart reviewed in detail, care plan d/w Becky SANDOVAL. I agree w/ the de la garza components of her documentation. From medical standpoint remains stable. Electrolytes all recently stable; we are past the point of refeeding syndrome. Would re-add MVI, thiamine to his meds to be complete. Agree w/ repeat echo in 3 months to reassess LV size. Suspect related to his anorexia but again this should be rechecked. Will coordinate the repeat echo as outpatient. Will sign off for now. Please reconsult if needed. Óscar Ospina was seen on round this morning. Pt offers no new complaints/concerns at this time. He has intermittent lightheadedness that lasts a few seconds after standing up (from seated position) but then resolves. He denies syncopal episodes. He denies chest pain, dyspnea, palpitations, n/v/d, f/c, headache, or gu symptoms. Review of Systems Review of Systems: General/Constitutional: Denies fever/chills, fatigue, weakness ENT: Denies visual changes, nasal drainage, hearing loss, sore throat, trouble swallowing Cardiovascular: Denies chest pain, palpitations, edema Respiratory: Denies cough, SOB GI: Denies nausea, vomiting, abdominal pain, constipation, diarrhea : Denies dysuria, hematuria, urgency, frequency Musculoskeletal: Denies joint/muscle aches Neurologic: + intermittent lightheadedness but no syncope Physical Exam Physical Exam: GENERAL: 20 yo tall, thin but well developed BM. pleasant. NAD. LUNGS: Clear to auscultation bilaterally. No accessory muscle use. No W/R/R. CARDIOVASCULAR: Bradycardic. No M/G/R. No JVD. ABDOMEN: Soft, non-tender and non-distended. No palpable masses. Bowel sounds normoactive x 4 quad. EXTREMITIES: No edema. Non-tender. Peripheral pulses +2/4. PSYCHIATRIC: Cooperative. Appropriate mood and affect. SKIN: Warm, dry, intact. No rashes or lesions. Results & Data Results & Data ([facility]) Vital Signs (Past 12 Hours) Vital Signs Temp Pulse Resp BP 09/17/21 06:33 36.4 C L 67 16 119/53 L Laboratory Results No labs performed today PG Care Time/CCT Total # of Minutes Spent Total Time Spent with Patient: Total time spent is greater than 50% in coordination of care (as documented) at patient's floor/unit and/or counseling patient: Coding Level of Care Code 96262 Subseq Hosp Care Lvl 2 Diagnoses Bradycardia R00.1 Leukopenia D72.819 Disordered eating F50.9 MDD (major depressive disorder), recurrent episode, moderate F33.1
--- NOTE | 2021-09-17 17:06 | Psychiatric Progress Note ---
Date of Service September 17, 2021 Impression / Recommendations Impression 20 yo male readmit following medical monitoring for bradycardia and refeeding. Labwork has been stable and reassuring. Feels more hopeful as he is understanding himself and symptoms; needs support and monitoring of inpatient mental health unit pending transfer to an inpatient eating disorder program given ongoing stressors outside of the hospital in which SI would likely re- emerge and given acuity of eating disorder symptoms and likelihood of return to severe restriction. Showing progress in terms of eating more and no longer experiencing SI. Continues to have depression and cognitive distortions and emotional challenges associated with his desire to restrict and eating disorder. Reviewed labwork and EKG and hospitalist providers reviewed as well and no acute concerns, remains medically stable and appropriate for referral for specialized inpatient eating disorder treatment. Continues to be very motivated, insightful and honest about his eating disorder symptoms and desire for treatment. 09/17/21: He's considering medical withdrawal from school, continuing to demonstrate good nutritional intake. (1) MDD (major depressive disorder), recurrent episode, moderate: (2) Post traumatic stress disorder (PTSD): (3) Atypical eating disorder: (4) Severe protein-calorie malnutrition: (5) Bradycardia: 09/17/21: plan for specialized eating disorder treatment, updated records faxed to [facility]. Reviewed peripheral blood smear which was read to be consistent with anorexia from restrictive eating. Pathologist noted that even with low ANC, studies have shown that patients with anorexia induced low ANC do not appear to be at higher risk for infections. 09/16/21: reviewed recent labwork and EKGs with hospitalist provider. Low ANC, RBC, WBC, Hgb, Hct all expected with nutritional deficiency and impact on bone marrow production. EKG with no acute findings or concerns. Goal remains for inpatient specialized eating disorder treatment. 09/15/21: continue current treatment. Some new T waves changes on EKG yesterday so after discussing with hospitalist JAIME, re-ordered new EKG for today which showed some changes but these findings are most often benign in someone his age and without symptoms. The hospitalists will also follow-up again with Bhavesh. 09/14/21: continue current treatment plan. 09/13/21: continue current treatment plan. Accepted to [facility] for 09/17/21, other referrals pending. 09/12/21: hospitalist consult appreciated. Discussed his life/interests outside of football and thoughts about same age peer being discharged. 09/11/21: updated team physician, accepted to [facility] but no bed available so pursuing additional referrals. Repeat labs and EKG in am. 09/10/21: Dr. Tabares (team physician) updated on patient status and pending referral to [facility] unit. Am labs were stable. 09/09/21: The patient [facility] on q15 min checks (behavioral with suicide precautions) for safety. The patient will participate in group, recreational, and milieu therapies and will be offered additional individual and family sessions as clinically appropriate. Repeat labs and EKG in am for referral to residential ED program. He has declined psychiatric medication retrial at this point but is willing to reconsidering depending on advice/progress at ED program. 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 Chief Complaint "I'm alright". Review of Systems Sleep Information Total Hours of Sleep: 6 Sleep Comments: pt on q-15 minute checks Meal Information Percent Meal Consumed - Breakfast: 100 Percent Meal Consumed - Lunch: 100 Percent Meal Consumed - Dinner: 100 Subjective Subjective Patient was seen & assessed and interval progress reviewed with treatment team nursing and social work. Remains engaged with groups. Appropriate and pleasant with staff. Eating meals consistently, no concern for purging. Today was napping in the afternoon but awoke and cooperative with interview. Reviewed his meeting with student advocacy, he's planning to do a medical withdrawal for the semester. Mood remains stable. Continues to have urges and thoughts to restrict intake. Physical Exam Psychiatric Orientation: alert and oriented x 3 Apperance: appropriately dressed and appropriately groomed Eye Contact: good eye contact Motor Behavior: no abnormal motor movements Speech: normal rate/rhythm/volume of speech Affect: + constricted affect Mood: + depressed mood Thought Process: goal directed thought process Thought Content: reality based without delusions Suicidal Thoughts: denies suicidal thoughts Homicidal Thoughts: denies homicidal thoughts Hallucinations: no auditory hallucinations and no visual hallucinations Cognition: attention grossly intact and language grossly intact Estimated Intelligence: consistent with education level Insight: + fair insight Judgement: + fair judgement Vital Signs (Past 24 Hours) Last Vital Signs Temp 36.4 C L 09/17/21 06:33 Pulse 67 09/17/21 06:33 Resp 16 09/17/21 06:33 BP 119/53 L 09/17/21 06:33 Pulse Ox 98 09/16/21 20:34 Results & Data ([facility]) Laboratory Results Laboratory Results - last 24 hr 09/16/21 07:52 Peripher Smr Path Cons Current Inpatient Medications Current Inpatient Medications: Current Inpatient Medications Acetaminophen (Acetaminophen 325 Mg Tab) 650 mg PO Q4H PRN PRN Reason: Headache or Minor Fever Stop: 10/08/21 16:28 Al Hydrox/Mg Hydrox/Simethicone (Aluminum/Magnesium Susp 30 Ml Udc) 30 ml PO Q4H PRN PRN Reason: GI Upset Stop: 10/08/21 16:28 Bismuth Subsalicylate (Bismuth Subsalicylate Liqd 236 Ml) 15 ml PO PRN PRN PRN Reason: Loose Stool Stop: 10/08/21 16:28 Hydroxyzine HCl (Hydroxyzine Hcl 25 Mg Tab) 50 mg PO HSZ PRN PRN Reason: Insomnia Stop: 10/08/21 16:28 Hydroxyzine HCl (Hydroxyzine Hcl 25 Mg Tab) 25 mg PO Q4H PRN PRN Reason: Anxiety Stop: 10/08/21 16:28 Magnesium Hydroxide (Magnesium Hydroxide Susp 30 Ml Udc) 30 ml PO DAILY PRN PRN Reason: Constipation Stop: 10/08/21 16:28 Sodium Chloride (Sodium Chloride 0.65% Na Soln 45 Ml ([place])) 1 - 2 sprays NA PRN PRN PRN Reason: Nasal Dryness/Congestion Stop: 10/08/21 16:28 Mental Health & Subst Abuse Tx Therapist Name of Therapist: none Sewing Pattern Layout Technician Name of Sewing Pattern Layout Technician: GAIL Solorzano Phone Number for Sewing Pattern Layout Technician: [phone] Case Management Appointment Comment: Follow up as needed Post Discharge Appointments Primary Care Physician Name Of Family Doctor: ANTOINE Miranda Primary Care Provider Appointment Comment: Follow up as needed Contact Information Discharge Discharge Address: [address] [place] [address]
[2021-09-17] MEDS: hydrOXYzine HCl 25 MG TAB PO PRN (22:04)
[2021-09-18] MEDS: CEROVITE ADV FORMULA TAB PO SCH (08:51)
[2021-09-18] MEDS: THIAMINE HCL 100 MG TAB PO SCH (08:51)
--- NOTE | 2021-09-18 16:30 | Psychiatric Progress Note ---
Date of Service September 18, 2021 Impression / Recommendations Impression 20 yo male readmit following medical monitoring for bradycardia and refeeding. Labwork has been stable and reassuring. Feels more hopeful as he is understanding himself and symptoms; needs support and monitoring of inpatient mental health unit pending transfer to an inpatient eating disorder program given ongoing stressors outside of the hospital in which SI would likely re- emerge and given acuity of eating disorder symptoms and likelihood of return to severe restriction. Showing progress in terms of eating more and no longer experiencing SI. Continues to have depression and cognitive distortions and emotional challenges associated with his desire to restrict and eating disorder. Reviewed labwork and EKG and hospitalist providers reviewed as well and no acute concerns, remains medically stable and appropriate for referral for specialized inpatient eating disorder treatment. Continues to be very motivated, insightful and honest about his eating disorder symptoms and desire for treatment. 09/18/21: Eye symptoms has been longstanding over the last few months. No concern for acute emergency but discussed referral to line crew supervisor on discharge. Discussed that this could also be aura from migraines especially since these run in his family. Discussed option to try magnesium supplementation which has some evidence for use in migraine prophlaxis which he would like to try. Discussed risks, benefits, alternatives. (1) MDD (major depressive disorder), recurrent episode, moderate: (2) Post traumatic stress disorder (PTSD): (3) Atypical eating disorder: (4) Severe protein-calorie malnutrition: (5) Bradycardia: 09/18/21: Starting magnesium oxide 400 mg qd supplement for migraine prophylaxis for possible migraine aura symptoms. Encouraged him to also follow- up with his PCP about this and potential option for local referral for line crew supervisor if symptoms persist. 09/17/21: plan for specialized eating disorder treatment, updated records faxed to [facility]. Reviewed peripheral blood smear which was read to be consistent with anorexia from restrictive eating. Pathologist noted that even with low ANC, studies have shown that patients with anorexia induced low ANC do not appear to be at higher risk for infections. 09/16/21: reviewed recent labwork and EKGs with hospitalist provider. Low ANC, RBC, WBC, Hgb, Hct all expected with nutritional deficiency and impact on bone marrow production. EKG with no acute findings or concerns. Goal remains for inpatient specialized eating disorder treatment. 09/15/21: continue current treatment. Some new T waves changes on EKG yesterday so after discussing with hospitalist JAIME, re-ordered new EKG for today which showed some changes but these findings are most often benign in someone his age and without symptoms. The hospitalists will also follow-up again with Bhavesh. 09/14/21: continue current treatment plan. 09/13/21: continue current treatment plan. Accepted to [facility] for 09/17/21, other referrals pending. 09/12/21: hospitalist consult appreciated. Discussed his life/interests outside of football and thoughts about same age peer being discharged. 09/11/21: updated team physician, accepted to [facility] but no bed available so pursuing additional referrals. Repeat labs and EKG in am. 09/10/21: Dr. Tabares (team physician) updated on patient status and pending referral to [facility] unit. Am labs were stable. 09/09/21: The patient was admitted to the [facility] ([facility] inpatient mental health unit) on q15 min checks (behavioral with suicide precautions) for safety. The patient will participate in group, recreational, and milieu therapies and will be offered additional individual and family sessions as clinically appropriate. Repeat labs and EKG in am for referral to residential ED program. He has declined psychiatric medication retrial at this point but is willing to reconsidering depending on advice/progress at ED program. 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 Chief Complaint "I'm good". Review of Systems Sleep Information Total Hours of Sleep: 6.5 Sleep Comments: pt given vistaril per rn. pt on q-15 minute checks Meal Information Percent Meal Consumed - Breakfast: 100 Percent Meal Consumed - Lunch: 100 Percent Meal Consumed - Dinner: 100 Subjective Subjective Patient was seen & assessed and interval progress reviewed with treatment team nursing and social work. Bhavesh's mood remains stable. No SI. He continues to experience thoughts about restricting and low self-esteem when he eats/irritability toward himself after eating. he's looking into options for medical deferment or other options regarding school. He raises concern of some visual changes that have been occurring for multiple months especially if he looks at bright lights/it's bright outside. Usually it appears like floaters but sometimes it appears more like "smoke". Finds then it feels like he needs to blink a bunch. Never with curtain like appearance or loss of vision. Family history of migraines in his sister. No other acute concerns. Physical Exam Psychiatric Orientation: alert and oriented x 3 Apperance: appropriately dressed and appropriately groomed Eye Contact: good eye contact Motor Behavior: no abnormal motor movements Speech: normal rate/rhythm/volume of speech Affect: + constricted affect Mood: + anxious mood Thought Process: goal directed thought process Thought Content: reality based without delusions Suicidal Thoughts: denies suicidal thoughts Homicidal Thoughts: denies homicidal thoughts Hallucinations: no auditory hallucinations and no visual hallucinations Cognition: attention grossly intact and language grossly intact Estimated Intelligence: consistent with education level Insight: + fair insight Judgement: + fair judgement Vital Signs (Past 24 Hours) Last Vital Signs Temp 36.7 C 09/18/21 14:00 Pulse 43 L 09/18/21 14:00 Resp 16 09/18/21 14:00 BP 156/71 H 09/18/21 14:00 Pulse Ox 98 09/16/21 20:34 Results & Data ([facility]) Current Inpatient Medications Current Inpatient Medications: Current Inpatient Medications Acetaminophen (Acetaminophen 325 Mg Tab) 650 mg PO Q4H PRN PRN Reason: Headache or Minor Fever Stop: 10/08/21 16:28 Last Admin: 09/18/21 12:26 Dose: 650 mg Documented by: Al Hydrox/Mg Hydrox/Simethicone (Aluminum/Magnesium Susp 30 Ml Udc) 30 ml PO Q4H PRN PRN Reason: GI Upset Stop: 10/08/21 16:28 Bismuth Subsalicylate (Bismuth Subsalicylate Liqd 236 Ml) 15 ml PO PRN PRN PRN Reason: Loose Stool Stop: 10/08/21 16:28 Hydroxyzine HCl (Hydroxyzine Hcl 25 Mg Tab) 50 mg PO HSZ PRN PRN Reason: Insomnia Stop: 10/08/21 16:28 Last Admin: 09/17/21 22:04 Dose: 50 mg Documented by: Hydroxyzine HCl (Hydroxyzine Hcl 25 Mg Tab) 25 mg PO Q4H PRN PRN Reason: Anxiety Stop: 10/08/21 16:28 Magnesium Hydroxide (Magnesium Hydroxide Susp 30 Ml Udc) 30 ml PO DAILY PRN PRN Reason: Constipation Stop: 10/08/21 16:28 Multivitamins/Minerals (Cerovite Adv Formula Tab) 1 tab PO QAM GLORIA Stop: 10/18/21 08:59 Last Admin: 09/18/21 08:51 Dose: 1 tab Documented by: Sodium Chloride (Sodium Chloride 0.65% Na Soln 45 Ml ([place])) 1 - 2 sprays NA PRN PRN PRN Reason: Nasal Dryness/Congestion Stop: 10/08/21 16:28 Thiamine HCl (Thiamine Hcl 100 Mg Tab) 200 mg PO QAM GLORIA Stop: 10/18/21 08:59 Last Admin: 09/18/21 08:51 Dose: 200 mg Documented by: Mental Health & Subst Abuse Tx Therapist Name of Therapist: none Senior Software Project Manager Name of Senior Software Project Manager: GAIL Solorzano Phone Number for Senior Software Project Manager: [phone] Case Management Appointment Comment: Follow up as needed Post Discharge Appointments Primary Care Physician Name Of Family Doctor: ANTOINE Miranda Primary Care Provider Appointment Comment: Follow up as needed Contact Information Discharge Discharge Address: [address] [place], [place] [address], [place] [address]
[2021-09-18] MEDS: hydrOXYzine HCl 25 MG TAB PO PRN (22:57)
[2021-09-19] MEDS: MAGNESIUM OXIDE 400 MG TAB PO SCH (10:01)
[2021-09-19] MEDS: THIAMINE HCL 100 MG TAB PO SCH (10:01)
[2021-09-19] MEDS: CEROVITE ADV FORMULA TAB PO SCH (10:01)
--- NOTE | 2021-09-19 16:01 | Psychiatric Progress Note ---
Date of Service September 19, 2021 Impression / Recommendations Impression 20 yo male readmit following medical monitoring for bradycardia and refeeding. Labwork has been stable and reassuring. Feels more hopeful as he is understanding himself and symptoms; needs support and monitoring of inpatient mental health unit pending transfer to an inpatient eating disorder program given ongoing stressors outside of the hospital in which SI would likely re- emerge and given acuity of eating disorder symptoms and likelihood of return to severe restriction. Showing progress in terms of eating more and no longer experiencing SI. Continues to have depression and cognitive distortions and emotional challenges associated with his desire to restrict and eating disorder. Reviewed labwork and EKG and hospitalist providers reviewed as well and no acute concerns, remains medically stable and appropriate for referral for specialized inpatient eating disorder treatment. Continues to be very motivated, insightful and honest about his eating disorder symptoms and desire for treatment. 09/19/21: Depressive symptoms are improving in supportive, structured environment. Remains at high risk for ongoing restriction and resumption of weight loss if he were to leave without receiving intensive eating disorder treatment. Continuing to wait on bed availability, referral in at [facility]. If he were to return to campus or return to his mother's home in [place] prior to starting inpatient eating disorder treatment he would be at high risk to end up severely medically compromised again with significant bradycardia, bone marrow suppression etc as seen prior to admission. At this point his resting HR is now improving and nutritional intake is improving steadily. (1) MDD (major depressive disorder), recurrent episode, moderate: (2) Post traumatic stress disorder (PTSD): (3) Atypical eating disorder: (4) Severe protein-calorie malnutrition: (5) Bradycardia: 09/19/21: continue with supplements, monitoring nutritional intake. Awaiting bed availability at [facility] for inpatient eating disorder treatment. Call to Dr. Tabares to update him on progress. 09/18/21: Starting magnesium oxide 400 mg qd supplement for migraine prophylaxis for possible migraine aura symptoms. Encouraged him to also follow-up with his PCP about this and potential option for local referral for pmo manager if symptoms persist. 09/17/21: plan for specialized eating disorder treatment, updated records faxed to [facility]. Reviewed peripheral blood smear which was read to be consistent with anorexia from restrictive eating. Pathologist noted that even with low ANC, michael dies have shown that patients with anorexia induced low ANC do not appear to be at higher risk for infections. 11/14/21: reviewed recent labwork and EKGs with hospitalist provider. Low ANC, RBC, WBC, Hgb, Hct all expected with nutritional deficiency and impact on bone marrow production. EKG with no acute findings or concerns. Goal remains for inpatient specialized eating disorder treatment. 09/15/21: continue current treatment. Some new T waves changes on EKG yesterday so after discussing with hospitalist JAIME, re-ordered new EKG for today which showed some changes but these findings are most often benign in someone his age and without symptoms. The hospitalists will also follow-up again with Bhavesh. 09/14/21: continue current treatment plan. 09/13/21: continue current treatment plan. Accepted to [facility] for 09/17/21, other referrals pending. 09/12/21: hospitalist consult appreciated. Discussed his life/interests outside of football and thoughts about same age peer being discharged. 09/11/21: updated team physician, accepted to [facility] but no bed available so pursuing additional referrals. Repeat labs and EKG in am. 09/10/21: Dr. Tabares (team physician) updated on patient status and pending referral to [facility] unit. Am labs were stable. 09/09/21: The [facility] was [facility] ([facility] unit) on q15 min checks (behavioral with suicide precautions) for safety. The patient will participate in group, recreational, and milieu therapies and will be offered additional individual and family sessions as clinically appropriate. Repeat labs and EKG in am for referral to residential ED program. He has declined psychiatric medication retrial at this point but is willing to reconsidering depending on advice/progress at ED program. 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 Chief Complaint "I'm not sure how it would go". Review of Systems Sleep Information Total Hours of Sleep: 6 Sleep Comments: pt given vistaril per rn. pt on q-15 minute checks Meal Information Percent Meal Consumed - Breakfast: 100 Percent Meal Consumed - Lunch: 100 Percent Meal Consumed - Dinner: 100 Subjective Subjective Patient was seen & assessed and interval progress reviewed with treatment team nursing and social work. Today Bhavesh reports stable mood in terms of depression which he attributes to being away from his significant stressors at school and football but he believes these symptoms would reoccur if he went right back into that environment. He continues to have intrusive thoughts to restrict, body dysmorphia and thoughts that he needs to be at a very low weight to look attractive. Continuing to process ways to cope with these distorted thoughts. He remains motivated for inpatient eating disorder treatment given the severity of his eating disorder. He's exploring options for school in terms of deferment. Continues to decline offers to have his mother involved in his treatment or to update her on his progress. Physical Exam Psychiatric Orientation: alert and oriented x 3 Apperance: appropriately dressed and appropriately groomed Eye Contact: good eye contact Motor Behavior: no abnormal motor movements Speech: normal rate/rhythm/volume of speech Affect: + depressed affect and + constricted affect Mood: + depressed mood and + anxious mood Thought Process: goal directed thought process Thought Content: reality based without delusions Suicidal Thoughts: denies suicidal thoughts (here but feels they would reoccur in the outpt setting) Homicidal Thoughts: denies homicidal thoughts Hallucinations: no auditory hallucinations and no visual hallucinations Cognition: attention grossly intact and language grossly intact Estimated Intelligence: consistent with education level Insight: + fair insight Judgement: + fair judgement Vital Signs (Past 24 Hours) Last Vital Signs Temp 36.9 C 09/19/21 14:00 Pulse 50 L 09/19/21 14:00 Resp 16 09/19/21 14:00 BP 126/75 09/19/21 14:00 Pulse Ox 98 09/19/21 14:00 Results & Data ([facility]) Current Inpatient Medications Current Inpatient Medications: Current Inpatient Medications Acetaminophen (Acetaminophen 325 Mg Tab) 650 mg PO Q4H PRN PRN Reason: Headache or Minor Fever Stop: 10/08/21 16:28 Last Admin: 09/18/21 12:26 Dose: 650 mg Documented by: Al Hydrox/Mg Hydrox/Simethicone (Aluminum/Magnesium Susp 30 Ml Udc) 30 ml PO Q4H PRN PRN Reason: GI Upset Stop: 10/08/21 16:28 Bismuth Subsalicylate (Bismuth Subsalicylate Liqd 236 Ml) 15 ml PO PRN PRN PRN Reason: Loose Stool Stop: 10/08/21 16:28 Hydroxyzine HCl (Hydroxyzine Hcl 25 Mg Tab) 50 mg PO HSZ PRN PRN Reason: Insomnia Stop: 10/08/21 16:28 Last Admin: 09/18/21 22:57 Dose: 50 mg Documented by: Hydroxyzine HCl (Hydroxyzine Hcl 25 Mg Tab) 25 mg PO Q4H PRN PRN Reason: Anxiety Stop: 10/08/21 16:28 Magnesium Hydroxide (Magnesium Hydroxide Susp 30 Ml Udc) 30 ml PO DAILY PRN PRN Reason: Constipation Stop: 10/08/21 16:28 Magnesium Oxide (Magnesium Oxide 400 Mg Tab) 400 mg PO QAM GLORIA Stop: 10/19/21 08:59 Last Admin: 09/19/21 10:01 Dose: 400 mg Documented by: Multivitamins/Minerals (Cerovite Adv Formula Tab) 1 tab PO QAM GLORIA Stop: 10/18/21 08:59 Last Admin: 09/19/21 10:01 Dose: 1 tab Documented by: Sodium Chloride (Sodium Chloride 0.65% Na Soln 45 Ml ([place])) 1 - 2 sprays NA PRN PRN PRN Reason: Nasal Dryness/Congestion Stop: 10/08/21 16:28 Thiamine HCl (Thiamine Hcl 100 Mg Tab) 200 mg PO QAM GLORIA Stop: 10/18/21 08:59 Last Admin: 09/19/21 10:01 Dose: 200 mg Documented by: Mental Health & Subst Abuse Tx Therapist Name of Therapist: none Needle Punch Machine Operator Name of Needle Punch Machine Operator: GAIL Solorzano Phone Number for Needle Punch Machine Operator: [phone] Case Management Appointment Comment: Follow up as needed Post Discharge Appointments Primary Care Physician Name Of Family Doctor: ANTOINE Miranda Primary Care Provider Appointment Comment: Follow up as needed Contact Information Discharge Discharge Address: [address] [place] [address] , [place] [address]
[2021-09-19] MEDS: hydrOXYzine HCl 25 MG TAB PO PRN (23:43)
[2021-09-20] MEDS: CEROVITE ADV FORMULA TAB PO SCH (09:27)
[2021-09-20] MEDS: MAGNESIUM OXIDE 400 MG TAB PO SCH (09:27)
[2021-09-20] MEDS: THIAMINE HCL 100 MG TAB PO SCH (09:27)
--- NOTE | 2021-09-20 15:26 | Psychiatric Progress Note ---
Date of Service September 20, 2021 Impression / Recommendations Impression 20 yo male readmit following medical monitoring for bradycardia and refeeding. Labwork has been stable and reassuring. Feels more hopeful as he is understanding himself and symptoms; needs support and monitoring of inpatient mental health unit pending transfer to an inpatient eating disorder program given ongoing stressors outside of the hospital in which SI would likely re- emerge and given acuity of eating disorder symptoms and likelihood of return to severe restriction. Showing progress in terms of eating more and no longer experiencing SI. Continues to have depression and cognitive distortions and emotional challenges associated with his desire to restrict and eating disorder. Reviewed labwork and EKG and hospitalist providers reviewed as well and no acute concerns, remains medically stable and appropriate for referral for specialized inpatient eating disorder treatment. Continues to be very motivated, insightful and honest about his eating disorder symptoms and desire for treatment. 09/20/21: Depressive symptoms are improving in supportive, structured environment. Remains at high risk for ongoing restriction and resumption of weight loss if he were to leave without receiving intensive eating disorder treatment. Continuing to wait on bed availability, referral in at [facility]. If he were to return to campus or return to his mother's home in [place] prior to starting inpatient eating disorder treatment he would be at high risk to end up severely medically compromised again with significant bradycardia, bone marrow suppression etc as seen prior to admission especially as he would not be able to access any outpatient services as these are tied to status of being an actively enrolled student and he is planning to medically withdraw. At this point his resting HR is now improving and nutritional intake is improving steadily. (1) MDD (major depressive disorder), recurrent episode, moderate: (2) Post traumatic stress disorder (PTSD): (3) Atypical eating disorder: (4) Severe protein-calorie malnutrition: (5) Bradycardia: 09/20/21: continue with supplements, awaiting placement at [facility] eating disorder treatment facility. 09/19/21: continue with supplements, monitoring nutritional intake. Awaiting bed availability at [facility] for inpatient eating disorder treatment. Call to Dr. Tabares to update him on progress. 09/18/21: Starting magnesium oxide 400 mg qd supplement for migraine prophylaxis for possible migraine aura symptoms. Encouraged him to also follow-up with his PCP about this and potential option for local referral for pattern grader cutter if symptoms persist. 09/17/21: plan for specialized eating disorder treatment, updated records faxed to [facility]. Reviewed peripheral blood smear which was read to be consistent with a norexia from restrictive eating. Pathologist noted that even with low ANC, studies have shown that patients with anorexia induced low ANC do not appear to be at higher risk for infections. 09/16/21: reviewed recent labwork and EKGs with hospitalist provider. Low ANC, RBC, WBC, Hgb, Hct all expected with nutritional deficiency and impact on bone marrow production. EKG with no acute findings or concerns. Goal remains for inpatient specialized eating disorder treatment. 09/15/21: continue current treatment. Some new T waves changes on EKG yesterday so after discussing with hospitalist JAIME, re-ordered new EKG for today which showed some changes but these findings are most often benign in someone his age and without symptoms. The hospitalists will also follow-up again with Bhavesh. 09/14/21: continue current treatment plan. 09/13/21: continue current treatment plan. Accepted to [facility] for 09/17/21, other referrals pending. 09/12/21: hospitalist consult appreciated. Discussed his life/interests outside of football and thoughts about same age peer being discharged. 09/11/21: updated team physician, accepted to [facility] but no bed available so pursuing additional referrals. Repeat labs and EKG in am. 09/10/21: Dr. Tabares (team physician) updated on patient status and pending referral to [facility] unit. Am labs were stable. 09/09/21: [facility]) on q15 min checks (behavioral with suicide precautions) for safety. The patient will participate in group, recreational, and milieu therapies and will be offered additional individual and family sessions as clinically appropriate. Repeat labs and EKG in am for referral to residential ED program. He has declined psychiatric medication retrial at this point but is willing to reconsidering depending on advice/progress at ED program. 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 Chief Complaint "I don't think I realized how serious my eating disorder was, or that I even had a problem". Review of Systems Sleep Information Total Hours of Sleep: 5.5 Sleep Comments: pt given vistaril per rn. pt on q-15 minute checks Meal Information Percent Meal Consumed - Breakfast: 100 Percent Meal Consumed - Lunch: 100 Percent Meal Consumed - Dinner: 100 Subjective Subjective Patient was seen & assessed and interval progress reviewed with treatment team nursing and social work. Bhavesh reflected on options for treatment and remains motivated for inpatient eating disorder treatment. He feels that if he were to return to the outpatient setting that he would continue to restrict and attempt to lose weight again. He reflected on recalling as a child meals being "just breakfast lunch and dinner" and how over time he hadn't quite realized how intensely thoughts about every calorie and meal have consumed him. Physical Exam Psychiatric Orientation: alert and oriented x 3 Apperance: appropriately dressed and appropriately groomed Eye Contact: good eye contact Motor Behavior: no abnormal motor movements Speech: normal rate/rhythm/volume of speech Affect: + constricted affect Mood: + anxious mood Thought Process: goal directed thought process Thought Content: reality based without delusions Suicidal Thoughts: denies suicidal thoughts (here but feels they would reoccur in the outpt setting) Homicidal Thoughts: denies homicidal thoughts Hallucinations: no auditory hallucinations and no visual hallucinations Cognition: attention grossly intact and language grossly intact Estimated Intelligence: consistent with education level Insight: good insight Judgement: + fair judgement Vital Signs (Past 24 Hours) Last Vital Signs Temp 36.4 C L 09/20/21 06:00 Pulse 54 L 09/20/21 15:04 Resp 14 09/20/21 06:00 BP 138/67 09/20/21 15:04 Pulse Ox 100 09/19/21 22:28 Results & Data ([facility]) Current Inpatient Medications Current Inpatient Medications: Current Inpatient Medications Acetaminophen (Acetaminophen 325 Mg Tab) 650 mg PO Q4H PRN PRN Reason: Headache or Minor Fever Stop: 10/08/21 16:28 Last Admin: 09/18/21 12:26 Dose: 650 mg Documented by: Al Hydrox/Mg Hydrox/Simethicone (Aluminum/Magnesium Susp 30 Ml Udc) 30 ml PO Q4H PRN PRN Reason: GI Upset Stop: 10/08/21 16:28 Bismuth Subsalicylate (Bismuth Subsalicylate Liqd 236 Ml) 15 ml PO PRN PRN PRN Reason: Loose Stool Stop: 10/08/21 16:28 Hydroxyzine HCl (Hydroxyzine Hcl 25 Mg Tab) 50 mg PO HSZ PRN PRN Reason: Insomnia Stop: 10/08/21 16:28 Last Admin: 09/19/21 23:43 Dose: 50 mg Documented by: Hydroxyzine HCl (Hydroxyzine Hcl 25 Mg Tab) 25 mg PO Q4H PRN PRN Reason: Anxiety Stop: 10/08/21 16:28 Magnesium Hydroxide (Magnesium Hydroxide Susp 30 Ml Udc) 30 ml PO DAILY PRN PRN Reason: Constipation Stop: 10/08/21 16:28 Magnesium Oxide (Magnesium Oxide 400 Mg Tab) 400 mg PO QAM GLORIA Stop: 10/19/21 08:59 Last Admin: 09/20/21 09:27 Dose: 400 mg Documented by: Multivitamins/Minerals (Cerovite Adv Formula Tab) 1 tab PO QAM GLORIA Stop: 10/18/21 08:59 Last Admin: 09/20/21 09:27 Dose: 1 tab Documented by: Sodium Chloride (Sodium Chloride 0.65% Na Soln 45 Ml ([place])) 1 - 2 sprays NA PRN PRN PRN Reason: Nasal Dryness/Congestion Stop: 10/08/21 16:28 Thiamine HCl (Thiamine Hcl 100 Mg Tab) 200 mg PO QAM GLORIA Stop: 10/18/21 08:59 Last Admin: 09/20/21 09:27 Dose: 200 mg Documented by: Mental Health & Subst Abuse Tx Therapist Name of Therapist: none Online Merchandising Specialist Name of Online Merchandising Specialist: GAIL Solorzano Phone Number for Online Merchandising Specialist: [phone] Case Management Appointment Comment: Follow up as needed Post Discharge Appointments Primary Care Physician Name Of Family Doctor: ANTOINE Miranda Primary Care Provider Appointment Comment: Follow up as needed Contact Information Discharge Discharge Address: [address] [place] [address], [place] [address]
[2021-09-20] MEDS: hydrOXYzine HCl 25 MG TAB PO PRN (22:58)
[2021-09-21] MEDS: THIAMINE HCL 100 MG TAB PO SCH (08:48)
[2021-09-21] MEDS: CEROVITE ADV FORMULA TAB PO SCH (08:49)
[2021-09-21] MEDS: MAGNESIUM OXIDE 400 MG TAB PO SCH (08:49)
--- NOTE | 2021-09-21 15:12 | Psychiatric Progress Note ---
Date of Service September 21, 2021 Impression / Recommendations Impression 20 yo male readmit following medical monitoring for bradycardia and refeeding. Labwork has been stable and reassuring. Feels more hopeful as he is understanding himself and symptoms; needs support and monitoring of inpatient mental health unit pending transfer to an inpatient eating disorder program given ongoing stressors outside of the hospital in which SI would likely re- emerge and given acuity of eating disorder symptoms and likelihood of return to severe restriction. Showing progress in terms of eating more and no longer experiencing SI. Continues to have depression and cognitive distortions and emotional challenges associated with his desire to restrict and eating disorder. Reviewed labwork and EKG and hospitalist providers reviewed as well and no acute concerns, remains medically stable and appropriate for referral for specialized inpatient eating disorder treatment. Continues to be very motivated, insightful and honest about his eating disorder symptoms and desire for treatment. 09/21/21: Depressive symptoms are improving in supportive, structured environment. Remains at high risk for ongoing restriction and resumption of weight loss if he were to leave without receiving intensive eating disorder treatment. Continuing to wait on bed availability, referral in at [facility]. If he were to return to campus or return to his mother's home in [place] prior to starting inpatient eating disorder treatment he would be at high risk to end up severely medically compromised again with significant bradycardia, bone marrow suppression etc as seen prior to admission especially as he would not be able to access any outpatient services as these are tied to status of being an actively enrolled student and he is planning to medically withdraw. At this point his resting HR is now improving and nutritional intake is improving steadily. (1) MDD (major depressive disorder), recurrent episode, moderate: (2) Post traumatic stress disorder (PTSD): (3) Atypical eating disorder: (4) Severe protein-calorie malnutrition: (5) Bradycardia: 09/21/21: using vistaril 50 mg qhs prn for insomnia with good effect. Discussed potential treatment options after inpatient eating disorder treatment with Dr. Christian at the [facility]. Awaiting placement at [facility] eating disorder treatment facility pending bed availability. 09/20/21: continue with supplements, awaiting placement at [facility] eating disorder treatment facility. 09/19/21: continue with supplements, monitoring nutritional intake. Awaiting bed availability at [facility] for inpatient eating disorder treatment. Call to Dr. Tabares to update him on progress. 09/18/21: Starting magnesium oxide 400 mg qd supplement for migraine prophylaxis for possible migraine aura symptoms. Encouraged him to also follow-up with his PCP about this and potential option for local referral for design engineer products if symptoms persist. 09/17/21: plan for specialized eating disorder treatment, updated records faxed to [facility]. Reviewed peripheral blood smear which was read to be consistent with anorexia from restrictive eating. Pathologist noted that even with low ANC, studies have shown that patients with anorexia induced low ANC do not appear to be at higher risk for infections. 09/16/21: reviewed recent labwork and EKGs with hospitalist provider. Low ANC, RBC, WBC, Hgb, Hct all expected with nutritional deficiency and impact on bone marrow production. EKG with no acute findings or concerns. Goal remains for inpatient specialized eating disorder treatment. 09/15/21: continue current treatment. Some new T waves changes on EKG yesterday so after discussing with hospitalist JAIME, re-ordered new EKG for today which showed some changes but these findings are most often benign in someone his age and without symptoms. The hospitalists will also follow-up again with Bhavesh. 09/14/21: continue current treatment plan. 09/13/21: continue current treatment plan. Accepted to [facility] for 09/17/21, other referrals pending. 09/12/21: hospitalist consult appreciated. Discussed his life/interests outside of football and thoughts about same age peer being discharged. 09/11/21: updated team physician, accepted to [facility] but no bed available so pursuing additional referrals. Repeat labs and EKG in am. 09/10/21: Dr. Tabares (team physician) updated on patient status and pending referral to [facility] unit. Am labs were stable. 09/09/21: [facility] on q15 min checks (behavioral with suicide precautions) for safety. The patient will participate in group, recreational, and milieu therapies and will be offered additional individual and family sessions as clinically appropriate. Repeat labs and EKG in am for referral to residential ED program. He has declined psychiatric medication retrial at this point but is willing to reconsidering depending on advice/progress at ED program. 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 Chief Complaint "I'm good". Review of Systems Sleep Information Total Hours of Sleep: 6 Sleep Comments: pt given vistaril per rn. pt on q-15 minute checks Meal Information Percent Meal Consumed - Breakfast: 100 Percent Meal Consumed - Lunch: 100 Percent Meal Consumed - Dinner: 100 Subjective Subjective Patient was seen & assessed and interval progress reviewed with treatment team nursing and social work . Continues to participate in groups. Mood continues to improve. He's not interested in an additional medications for now, is finding vistaril helpful for sleep on nights he has insomnia without any side effects. Met with nutrition today and discussed trying to add more protein to his meals. Hard for him to tell if his energy level has improved. Physical Exam Psychiatric Orientation: alert and oriented x 3 Apperance: appropriately dressed and appropriately groomed Eye Contact: good eye contact Motor Behavior: no abnormal motor movements Speech: normal rate/rhythm/volume of speech Affect: + constricted affect Mood: + depressed mood and + anxious mood Thought Process: goal directed thought process Thought Content: reality based without delusions Suicidal Thoughts: denies suicidal thoughts (here but feels they would reoccur in the outpt setting) Homicidal Thoughts: denies homicidal thoughts Hallucinations: no auditory hallucinations and no visual hallucinations Cognition: attention grossly intact and language grossly intact Estimated Intelligence: consistent with education level Insight: good insight Judgement: + fair judgement Vital Signs (Past 24 Hours) Last Vital Signs Temp 36.9 C 09/21/21 14:00 Pulse 51 L 09/21/21 14:00 Resp 18 09/21/21 14:00 BP 150/65 H 09/21/21 14:00 Pulse Ox 98 09/20/21 21:21 Results & Data ([facility]) Current Inpatient Medications Current Inpatient Medications: Current Inpatient Medications Acetaminophen (Acetaminophen 325 Mg Tab) 650 mg PO Q4H PRN PRN Reason: Headache or Minor Fever Stop: 10/08/21 16:28 Last Admin: 09/18/21 12:26 Dose: 650 mg Documented by: Al Hydrox/Mg Hydrox/Simethicone (Aluminum/Magnesium Susp 30 Ml Udc) 30 ml PO Q4H PRN PRN Reason: GI Upset Stop: 10/08/21 16:28 Bismuth Subsalicylate (Bismuth Subsalicylate Liqd 236 Ml) 15 ml PO PRN PRN PRN Reason: Loose Stool Stop: 10/08/21 16:28 Hydroxyzine HCl (Hydroxyzine Hcl 25 Mg Tab) 50 mg PO HSZ PRN PRN Reason: Insomnia Stop: 10/08/21 16:28 Last Admin: 09/20/21 22:58 Dose: 50 mg Documented by: Hydroxyzine HCl (Hydroxyzine Hcl 25 Mg Tab) 25 mg PO Q4H PRN PRN Reason: Anxiety Stop: 10/08/21 16:28 Magnesium Hydroxide (Magnesium Hydroxide Susp 30 Ml Udc) 30 ml PO DAILY PRN PRN Reason: Constipation Stop: 10/08/21 16:28 Magnesium Oxide (Magnesium Oxide 400 Mg Tab) 400 mg PO QAM GLORIA Stop: 10/19/21 08:59 Last Admin: 09/21/21 08:49 Dose: 400 mg Documented by: Multivitamins/Minerals (Cerovite Adv Formula Tab) 1 tab PO QAM GLORIA Stop: 10/18/21 08:59 Last Admin: 09/21/21 08:49 Dose: 1 tab Documented by: Sodium Chloride (Sodium Chloride 0.65% Na Soln 45 Ml ([place])) 1 - 2 sprays NA PRN PRN PRN Reason: Nasal Dryness/Congestion Stop: 10/08/21 16:28 Thiamine HCl (Thiamine Hcl 100 Mg Tab) 200 mg PO QAM GLORIA Stop: 10/18/21 08:59 Last Admin: 09/21/21 08:48 Dose: 200 mg Documented by: Mental Health & Subst Abuse Tx Therapist Name of Therapist: none Embryology Professor Name of Embryology Professor: GAIL Solorzano Phone Number for Embryology Professor: [phone] Case Management Appointment Comment: Follow up as needed Post Discharge Appointments Primary Care Physician Name Of Family Doctor: ANTOINE Miranda Primary Care Provider Appointment Comment: Follow up as needed Contact Information Discharge Discharge Address: [address] [place] [id number]
[2021-09-21] MEDS: hydrOXYzine HCl 25 MG TAB PO PRN (22:34)
[2021-09-22] MEDS: THIAMINE HCL 100 MG TAB PO SCH (09:13)
[2021-09-22] MEDS: MAGNESIUM OXIDE 400 MG TAB PO SCH (09:13)
[2021-09-22] MEDS: CEROVITE ADV FORMULA TAB PO SCH (09:13)
[2021-09-22 12:20] LABS: Basophils # (auto) 0.04 K/uL (0-0.2); Basophils % (auto) 1.3 %; Eosinophils # (auto) 0.05 K/uL (0-0.5); Eosinophils % (auto) 1.6 %; Hematocrit (blood only) 41.4 % (42-52); Hemoglobin 14.1 g/dL (14.0-18.0); Lymphocytes # (auto) 1.21 K/uL (1.2-3.4); Lymphocytes % (auto) 38.7 %; Mean Corpuscular Hemoglobin 30.9 pg (25-34); Mean Corpuscular Hgb Conc 34.1 g/dL (32-36); Mean Corpuscular Volume 90.6 fL (80-100); Mean Platelet Volume 10.9 fL (7.4-10.4); Monocytes # (auto) 0.42 K/uL (0.11-0.59); Monocytes % (auto) 13.4 %; Neutrophils # (auto) 1.41 K/uL (1.4-6.5); Platelet Count 170 K/uL (130-400); RDW Coefficient of Variation 13.2 % (11.5-14.5); RDW Standard Deviation 43.1 fL (36.4-46.3); Red Blood Count 4.57 M/uL (4.7-6.1); White Blood Count 3.13 K/uL (4.8-10.8)
[2021-09-22 12:36] LABS: Albumin Level 3.9 gm/dl (3.4-5.0); BUN Creatinine Ratio 10.6 (10-20); Calcium 9.2 mg/dl (8.5-10.1); Creatinine Clr Calc Pharmacy 135.9 ml/min; Est GFR (African American) 108.6 ml/min; Est GFR (Non-African American) 93.7 ml/min; Magnesium 2.1 mg/dl (1.8-2.4); Potassium 4.2 mmol/L (3.5-5.1)
[2021-09-22 12:47] LABS: Bilirubin,Total 0.5 mg/dl (0.2-1); Globulin 3.8 gm/dl (2.5-4.0); Phosphorus 3.2 mg/dl (2.5-4.9); Thyroid Stimulating Hormone 0.756 uIu/ml (0.300-4.500); Total Protein 7.7 gm/dl (6.4-8.2)
--- NOTE | 2021-09-22 16:38 | Psychiatric Progress Note ---
Date of Service September 22, 2021 Impression / Recommendations Impression 20 yo male readmit following medical monitoring for bradycardia and refeeding. Labwork has been stable and reassuring. Feels more hopeful as he is understanding himself and symptoms; needs support and monitoring of inpatient mental health unit pending transfer to an inpatient eating disorder program given ongoing stressors outside of the hospital in which SI would likely re- emerge and given acuity of eating disorder symptoms and likelihood of return to severe restriction. Showing progress in terms of eating more and no longer experiencing SI. Continues to have depression and cognitive distortions and emotional challenges associated with his desire to restrict and eating disorder. Reviewed labwork and EKG and hospitalist providers reviewed as well and no acute concerns, remains medically stable and appropriate for referral for specialized inpatient eating disorder treatment. Continues to be very motivated, insightful and honest about his eating disorder symptoms and desire for treatment. 09/22/21: Depressive symptoms are improving in supportive, structured environment. Remains at high risk for ongoing restriction and resumption of weight loss if he were to leave without receiving intensive eating disorder treatment. Continuing to wait on bed availability, referral in at [facility]. If he were to return to campus or return to his mother's home in [place] prior to starting inpatient eating disorder treatment he would be at high risk to end up severely medically compromised again with significant bradycardia, bone marrow suppression etc as seen prior to admission especially as he would not be able to access any outpatient services as these are tied to status of being an actively enrolled student and he has medically withdrawn. At this point his resting HR is now improving and nutritional intake is improving steadily. (1) MDD (major depressive disorder), recurrent episode, moderate: (2) Post traumatic stress disorder (PTSD): (3) Atypical eating disorder: (4) Severe protein-calorie malnutrition: (5) Bradycardia: 09/22/21: continue current medications. Wrote letter supporting his decision to medically withdrawal from [employer]. Review this with Bhavesh and he consented to this letter being provided to student advocacy so they can distribute it to the necessary people in athletics/[employer] and to process the medical withdrawal. Repeat labs, EKG, rapid COVID test done today as requested by [facility] and faxed to them for review. 09/21/21: using vistaril 50 mg qhs prn for insomnia with good effect. Discussed potential treatment options after inpatient eating disorder treatment with Dr. Christian at the [employer] [facility] program. Awaiting placement at [facility] eating disorder treatment facility pending bed availability. 09/20/21: continue with supplements, awaiting placement at [facility] eating disorder treatment facility. 09/19/21: continue with supplements, monitoring nutritional intake. Awaiting bed availability at [facility] for inpatient eating disorder treatment. Call to Dr. Tabares to update him on progress. 09/18/21: Starting magnesium oxide 400 mg qd supplement for migraine prophylaxis for possible migraine aura symptoms. Encouraged him to also follow-up with his PCP about this and potential option for local referral for cage tender if symptoms persist. 09/17/21: plan for specialized eating disorder treatment, updated records faxed to [facility]. Reviewed peripheral blood smear which was read to be consistent with anorexia from restrictive eating. Pathologist noted that even with low ANC, studies have shown that patients with anorexia induced low ANC do not appear to be at higher risk for infections. 09/16/21: reviewed recent labwork and EKGs with hospitalist provider. Low ANC, RBC, WBC, Hgb, Hct all expected with nutritional deficiency and impact on bone marrow production. EKG with no acute findings or concerns. Goal remains for inpatient specialized eating disorder treatment. 09/15/21: continue current treatment. Some new T waves changes on EKG yesterday so after discussing with hospitalist JAIME, re-ordered new EKG for today which showed some changes but these findings are most often benign in someone his age and without symptoms. The hospitalists will also follow-up again with Bhavesh. 09/14/21: continue current treatment plan. 09/13/21: continue current treatment plan. Accepted to [facility] for 09/17/21, other referrals pending. 09/12/21: hospitalist consult appreciated. Discussed his life/interests outside of football and thoughts about same age peer being discharged. 09/11/21: updated team physician, accepted to [facility] but no bed available so pursuing additional referrals. Repeat labs and EKG in am. 09/10/21: Dr. Tabares (team physician) updated on patient status and pending referral to [facility] unit. Am labs were stable. 09/09/21: The patient was admitted to the [facility] ([facility]) on q15 min checks (behavioral with suicide precautions) for safety. The patient will participate in group, recreational, and milieu therapies and will be offered additional individual and family sessions as clinically appropriate. Repeat labs and EKG in am for referral to residential ED program. He has declined psychiatric medication retrial at this point but is willing to reconsidering depending on advice/progress at ED program. 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 Chief Complaint "I'm ok". Review of Systems Sleep Information Total Hours of Sleep: 6 Sleep Comments: pt given vistaril per rn. pt on q-15 minute checks Meal Information Percent Meal Consumed - Breakfast: 100 Percent Meal Consumed - Lunch: 100 Percent Meal Consumed - Dinner: 100 Subjective Subjective Patient was seen & assessed and interval progress reviewed with treatment team nursing and social work. Stable mood and slept well last night. Worked on medical withdrawal process today. Awaiting placement at [facility]. Stable intake but continues to have thoughts to restrict with food intake. Physical Exam Psychiatric Orientation: alert and oriented x 3 Apperance: appropriately dressed and appropriately groomed Eye Contact: good eye contact Motor Behavior: no abnormal motor movements Speech: normal rate/rhythm/volume of speech Affect: + constricted affect Mood: + anxious mood Thought Process: goal directed thought process Thought Content: reality based without delusions Suicidal Thoughts: denies suicidal thoughts (here but feels they would reoccur in the outpt setting) Homicidal Thoughts: denies homicidal thoughts Hallucinations: no auditory hallucinations and no visual hallucinations Cognition: attention grossly intact and language grossly intact Estimated Intelligence: consistent with education level Insight: good insight Judgement: + fair judgement Vital Signs (Past 24 Hours) Last Vital Signs Temp 37.1 C 09/22/21 14:49 Pulse 53 L 09/22/21 14:49 Resp 18 09/22/21 14:49 BP 120/55 L 09/22/21 14:49 Pulse Ox 98 09/20/21 21:21 Results & Data ([facility]) Laboratory Results Laboratory Results - last 24 hr 09/22/21 09/22/21 09/22/21 12:07 12:07 Unknown WBC 3.13 L RBC 4.57 L Hgb 14.1 Hct 41.4 L MCV 90.6 MCH 30.9 MCHC 34.1 RDW Std Deviation 43.1 RDW Coeff of Teri 13.2 Plt Count 170 MPV 10.9 H Immature Gran % (Auto) 0.0 Neut % (Auto) 45.0 Lymph % (Auto) 38.7 Mitchell % (Auto) 13.4 Eos % (Auto) 1.6 Baso % (Auto) 1.3 Neut # (Auto) 1.41 Lymph # (Auto) 1.21 Mitchell # (Auto) 0.42 Eos # (Auto) 0.05 Baso # (Auto) 0.04 Immature Gran # (Auto) 0.00 Sodium 141 Potassium 4.2 Chloride 107 Carbon Dioxide 30 Anion Gap 4.0 BUN 12 Creatinine 1.13 Est Cr Clr Drug Dosing 135.9 Est GFR ( Amer) 108.6 Est GFR (Non-Af Amer) 93.7 BUN/Creatinine Ratio 10.6 Glucose 73 Calcium 9.2 Phosphorus 3.2 Magnesium 2.1 Total Bilirubin 0.5 AST 17 ALT 22 Alkaline Phosphatase 81 Total Protein 7.7 Albumin 3.9 Globulin 3.8 Albumin/Globulin Ratio 1.0 TSH 0.756 SARS-CoV-2, RNA, NAAT NEGATIVE Current Inpatient Medications Current Inpatient Medications: Current Inpatient Medications Acetaminophen (Acetaminophen 325 Mg Tab) 650 mg PO Q4H PRN PRN Reason: Headache or Minor Fever Stop: 10/08/21 16:28 Last Admin: 09/18/21 12:26 Dose: 650 mg Documented by: Al Hydrox/Mg Hydrox/Simethicone (Aluminum/Magnesium Susp 30 Ml Udc) 30 ml PO Q4H PRN PRN Reason: GI Upset Stop: 10/08/21 16:28 Bismuth Subsalicylate (Bismuth Subsalicylate Liqd 236 Ml) 15 ml PO PRN PRN PRN Reason: Loose Stool Stop: 10/08/21 16:28 Hydroxyzine HCl (Hydroxyzine Hcl 25 Mg Tab) 50 mg PO HSZ PRN PRN Reason: Insomnia Stop: 10/08/21 16:28 Last Admin: 09/21/21 22:34 Dose: 50 mg Documented by: Hydroxyzine HCl (Hydroxyzine Hcl 25 Mg Tab) 25 mg PO Q4H PRN PRN Reason: Anxiety Stop: 10/08/21 16:28 Magnesium Hydroxide (Magnesium Hydroxide Susp 30 Ml Udc) 30 ml PO DAILY PRN PRN Reason: Constipation Stop: 10/08/21 16:28 Magnesium Oxide (Magnesium Oxide 400 Mg Tab) 400 mg PO QAM GLORIA Stop: 10/19/21 08:59 Last Admin: 09/22/21 09:13 Dose: 400 mg Documented by: Multivitamins/Minerals (Cerovite Adv Formula Tab) 1 tab PO QAM GLORIA Stop: 10/18/21 08:59 Last Admin: 09/22/21 09:13 Dose: 1 tab Documented by: Sodium Chloride (Sodium Chloride 0.65% Na Soln 45 Ml (Clinch)) 1 - 2 sprays NA PRN PRN PRN Reason: Nasal Dryness/Congestion Stop: 10/08/21 16:28 Thiamine HCl (Thiamine Hcl 100 Mg Tab) 200 mg PO QAM GLORIA Stop: 10/18/21 08:59 Last Admin: 09/22/21 09:13 Dose: 200 mg Documented by: Mental Health & Subst Abuse Tx Therapist Name of Therapist: none Manager Research Name of Manager Research: GAIL Solorzano Phone Number for Manager Research: [phone] Case Management Appointment Comment: Follow up as needed Post Discharge Appointments Primary Care Physician Name Of Family Doctor: ANTOINE Miranda Primary Care Provider Appointment Comment: Follow up as needed Contact Information Discharge Discharge Address: [address] [place], [place] [address]S[address] [place], [place] [address]
--- NOTE | 2021-09-22 17:50 | Discharge Summary ---
Date of Service September 22, 2021 History of Present Illness Bhavesh states today he never really realized how important nutrition is, just thought his team was focussed on him getting bigger, hadn't thought of food as fuel. States he had some mild GI upset first 1-2 days with refeeding, now "fine". No pedal edema. He states he hasn't spoken with coach professional athletes, animal attendants and trainers, or family about his hospitalization thus far. He remains amenable to inpatient treatment for his severe restriction and protein calorie malnutrition. Bhavesh reported a history of depression to Dr. Shipley and this was again confirmed. He reported that his suicidal thoughts worsened due to stress of football and at the time of admission included jumping from a parking garage or stabbing himself with a knife. At one point he actually paced around with a knife in his hand. 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 He continued to endorse multiple vegetative symptoms of depression. He has restricted his intake and when he can't do so, feels need to purge or engaging in excessive exercise beyond his 2 a day athletic practices. Coaches noticed his weight loss and he minimized by stating he was trying a vegan lifestyle. Up until admission only taking in 1147-6207 calories, mainly via granola bars and yogurt. He continues to feel he needs to lose more weight. It's believed he lost 40-50 lbs in 3 months. He has body dysmorphia and sucks in his stomach muscles multiple times a day before he can leave his apartment. In high school he may have experienced short bursts of elevated mood (2-3 days) with decreased need for sleep yet high energy. He also related a history of PTSD related symptoms. Physical Exam Vital Signs (Past 24 Hours) Last Vital Signs Temp 37.1 C 09/22/21 14:49 Pulse 53 L 09/22/21 14:49 Resp 18 09/22/21 14:49 BP 120/55 L 09/22/21 14:49 Pulse Ox 98 09/20/21 21:21 See admission H&P and DOD summary. Principal Diagnosis Atypical Eating Disorder Psychiatric Data See daily stay summary. In short, safety was maintained and the patient was cooperative with care. Medication changes included initiation of a multivitamin and thiamine 200mg qd and they tolerated this well. A safety plan was completed prior to discharge of transfer to [facility] inpatient eating disorder center. Day of Discharge Assessment Today hevoices readiness for transfer to [facility]. He notes improvement in mood. He denies thoughts of harm to self or others. Thoughts remain organized and he is clinically improved from admission in terms of mood but continue to experience symptoms of an eating disorder for which he remains motivated to seek ongoing treatment through specialized inpatient program. There is no evidence of psychosis. He improved in the hospital with support and is stable for transfer to [facility] at this time. At the time of the discharge he is deemed to be stable and appropriate for transfer to [facility] for inpatient eating disorder level of care. He is not deemed to be at imminent risk of harm to self or others. He is aware of emergency and crisis services. Knows to call 911 or go to nearest emergency care center if in a crisis which cannot be handled as an outpatient after he is discharged from [facility]. Transition of Care Transition Of Care Record: was reviewed with the patient Advance Directives Advance Directives Information Provided: Yes Advance Directives: No Mental Health Advance Directive: No Advance Directives on File: No Living Will: No Power of Genomics Scientist: No Advance Directives Reason:: Declines as Mental Health Visit. Risk Factors Assessment Male: Yes Do You Have Access To A Gun?: No Health Problems: No Mental Health Diagnoses: Yes Substance Use Disorders: No Previous Attempt: No Family History of Suicide: Yes Previous Psychiatric Hospitalization: No Hopelessness: No Protective Factors Assessment Stable Relationships: Yes Supportive Family: Yes Good Rapport with Provider: Yes Discharge Data Consultations 09/12/21 11:49 Consult Hospitalist Routine Lab Results 09/10/21 09/10/21 09/12/21 07:05 07:05 08:28 WBC RBC Hgb Hct MCV MCH MCHC RDW Std Deviation RDW Coeff of Teri Plt Count MPV Immature Gran % (Auto) Neut % (Auto) Lymph % (Auto) [place] % (Auto) Eos % (Auto) Baso % (Auto) Neut # (Auto) Lymph # (Auto) [place] # (Auto) Eos # (Auto) Baso # (Auto) Immature Gran # (Auto) Peripher Smr Path Cons Sodium 141 142 Potassium 4.0 4.0 Chloride 108 H 109 H Carbon Dioxide 27 28 Anion Gap 7.0 5.0 BUN 16 13 Creatinine 1.01 1.03 Est Cr Clr Drug Dosing 152.1 149.1 Est GFR ( Amer) 124.4 121.5 Est GFR (Non-Af Amer) 107.3 104.8 BUN/Creatinine Ratio 15.5 12.2 Glucose 67 L 77 Fasting Glucose Calcium 9.2 Cancelled 8.9 Phosphorus 4.3 3.7 Magnesium 2.1 2.1 Iron TIBC Transferrin Transferrin % Sat Total Bilirubin AST ALT Alkaline Phosphatase Total Protein Albumin Globulin Albumin/Globulin Ratio TSH SARS-CoV-2, RNA, NAAT 09/14/21 09/16/21 09/16/21 07:12 07:52 07:52 WBC 2.49 L RBC 4.55 L Hgb 13.8 L Hct 41.1 L MCV 90.3 MCH 30.3 MCHC 33.6 RDW Std Deviation 42.8 RDW Coeff of Teri 13.1 Plt Count 150 MPV 10.7 H Immature Gran % (Auto) 0.0 Neut % (Auto) 33.4 Lymph % (Auto) 56.2 [place] % (Auto) 7.6 Eos % (Auto) 2.0 Baso % (Auto) 0.8 Neut # (Auto) 0.83 L* Lymph # (Auto) 1.40 [place] # (Auto) 0.19 Eos # (Auto) 0.05 Baso # (Auto) 0.02 Immature Gran # (Auto) 0.00 Peripher Smr Path Cons Sodium 141 143 Potassium 4.0 4.3 Chloride 109 H 110 H Carbon Dioxide 29 28 Anion Gap 3.0 6.0 BUN 12 11 Creatinine 1.03 1.04 Est Cr Clr Drug Dosing 149.1 147.7 Est GFR ( Amer) 121.5 120.1 Est GFR (Non-Af Amer) 104.8 103.6 BUN/Creatinine Ratio 11.8 Glucose 77 Fasting Glucose 78 Calcium 9.1 9.0 Phosphorus 3.9 3.9 Magnesium 2.1 2.1 Iron TIBC Transferrin Transferrin % Sat Total Bilirubin 0.7 AST 13 L ALT 17 Alkaline Phosphatase 76 Total Protein 6.9 Albumin 3.4 Globulin 3.5 Albumin/Globulin Ratio 1.0 TSH 0.855 SARS-CoV-2, RNA, NAAT 09/16/21 09/22/21 09/22/21 07:52 12:07 12:07 WBC 3.13 L RBC 4.57 L Hgb 14.1 Hct 41.4 L MCV 90.6 MCH 30.9 MCHC 34.1 RDW Std Deviation 43.1 RDW Coeff of Teri 13.2 Plt Count 170 MPV 10.9 H Immature Gran % (Auto) 0.0 Neut % (Auto) 45.0 Lymph % (Auto) 38.7 [place] % (Auto) 13.4 Eos % (Auto) 1.6 Baso % (Auto) 1.3 Neut # (Auto) 1.41 Lymph # (Auto) 1.21 [place] # (Auto) 0.42 Eos # (Auto) 0.05 Baso # (Auto) 0.04 Immature Gran # (Auto) 0.00 Peripher Smr Path Cons Sodium 141 Potassium 4.2 Chloride 107 Carbon Dioxide 30 Anion Gap 4.0 BUN 12 Creatinine 1.13 Est Cr Clr Drug Dosing 135.9 Est GFR ( Amer) 108.6 Est GFR (Non-Af Amer) 93.7 BUN/Creatinine Ratio 10.6 Glucose 73 Fasting Glucose Calcium 9.2 Phosphorus 3.2 Magnesium 2.1 Iron 102 TIBC 246 L Transferrin 192 L Transferrin % Sat 38 Total Bilirubin 0.5 AST 17 ALT 22 Alkaline Phosphatase 81 Total Protein 7.7 Albumin 3.9 Globulin 3.8 Albumin/Globulin Ratio 1.0 TSH 0.756 SARS-CoV-2, RNA, NAAT 09/22/21 Unknown WBC RBC Hgb Hct MCV MCH MCHC RDW Std Deviation RDW Coeff of Teri Plt Count MPV Immature Gran % (Auto) Neut % (Auto) Lymph % (Auto) [place] % (Auto) Eos % (Auto) Baso % (Auto) Neut # (Auto) Lymph # (Auto) [place] # (Auto) Eos # (Auto) Baso # (Auto) Immature Gran # (Auto) Peripher Smr Path Cons Sodium Potassium Chloride Carbon Dioxide Anion Gap BUN Creatinine Est Cr Clr Drug Dosing Est GFR ( Amer) Est GFR (Non-Af Amer) BUN/Creatinine Ratio Glucose Fasting Glucose Calcium Phosphorus Magnesium Iron TIBC Transferrin Transferrin % Sat Total Bilirubin AST ALT Alkaline Phosphatase Total Protein Albumin Globulin Albumin/Globulin Ratio TSH SARS-CoV-2, RNA, NAAT NEGATIVE Hospital Course (1) MDD (major depressive disorder), recurrent episode, moderate: (2) Post traumatic stress disorder (PTSD): (3) Atypical eating disorder: (4) Severe protein-calorie malnutrition: (5) Bradycardia: 09/22/21: continue current medications. Wrote letter supporting his decision to medically withdraw from [employer]. Reviewed this with Bhavesh and he consented to this letter being provided to student advocacy so they can distribute it to the necessary people in athletics/[employer] and to process the medical withdrawal. Repeat labs, EKG, rapid COVID test done today as requested by [facility] and faxed to them for review. 09/21/21: using vistaril 50 mg qhs prn for insomnia with good effect. Discussed potential treatment options after inpatient eating disorder treatment with Dr. Christian at the [facility]. Awaiting placement at [facility] eating disorder treatment facility pending bed availability. 09/20/21: continue with supplements, awaiting placement at [facility] eating disorder treatment facility. 09/19/21: continue with supplements, monitoring nutritional intake. Awaiting bed availability at [facility] for inpatient eating disorder treatment. Call to Dr. Tabares to update him on progress. 09/18/21: Starting magnesium oxide 400 mg qd supplement for migraine prophylaxis for possible migraine aura symptoms. Encouraged him to also follow-up with his PCP about this and potential option for local referral for [employer] if symptoms persist. 09/17/21: plan for specialized eating disorder treatment, updated records faxed to [facility]. Reviewed peripheral blood smear which was read to be consistent with anorexia from restrictive eating. Pathologist noted that even with low ANC, studies have shown that patients with anorexia induced low ANC do not appear to be at higher risk for infections. 09/16/21: reviewed recent labwork and EKGs with hospitalist provider. Low ANC, RBC, WBC, Hgb, Hct all expected with nutritional deficiency and impact on bone marrow production. EKG with no acute findings or concerns. Goal remains for inpatient specialized eating disorder treatment. 09/15/21: continue current treatment. Some new T waves changes on EKG yesterday so after discussing with hospitalist JAIME, re-ordered new EKG for today which showed some changes but these findings are most often benign in someone his age and without symptoms. The hospitalists will also follow-up again with Bhavesh. 09/14/21: continue current treatment plan. 09/13/21: continue current treatment plan. Accepted to [facility] for 09/17/21, other referrals pending. 09/12/21: hospitalist consult appreciated. Discussed his life/interests outside of football and thoughts about same age peer being discharged. 09/11/21: updated team physician, accepted to [facility] but no bed available so pursuing additional referrals. Repeat labs and EKG in am. 09/10/21: Dr. Tabares (team physician) updated on patient status and pending referral to [facility] unit. Am labs were stable. 09/09/21: The patient was admitted to the [facility] ([facility] mental health unit) on q15 min checks (behavioral with suicide precautions) for safety. The patient will participate in group, recreational, and milieu therapies and will be offered additional individual and family sessions as clinically appropriate. Repeat labs and EKG in am for referral to residential ED program. He has declined psychiatric medication retrial at this point but is willing to reconsidering depending on advice/progress at ED program. Mental Health & Subst Abuse Tx Therapist Name of Therapist: none Shellfish Bed Worker Name of Shellfish Bed Worker: GAIL Solorzano Phone Number for Shellfish Bed Worker: [phone] Case Management Appointment Comment: Follow up as needed Post Discharge Appointments Primary Care Physician Name Of Family Doctor: ANTOINE Miranda Primary Care Provider Appointment Comment: Follow up as needed Other #1: Name of Aftercare Appointment: [facility] Phone Number of Aftercare Appointment: [phone] Aftercare Appointment Comment: [facility] [address] [address] Contact Information Discharge Discharge [address]: [address] [place] [id number] Discharge Plan Discharge Items Patient Disposition: Transfer Behavioral Health Fac Reason For Visit: MDD Discharge Diagnosis: Atypical Eating Disorder Activity: Resume your previous activity Non-emergency contact: Primary Care Provider Call non-emergency contact if: you have any medication questions and your symptoms worsen Follow-up/Referrals: [facility] [Primary Care Provider] - Diet: Regular Addtl Attending Provider Instructions: SPECIAL CARE INSTRUCTIONS: 1. Utilize new healthy coping skills, anger management skills, and stress management skills learned during your hospitalization. Journal feelings and process them with a support person. Identify stressors or situations that may result in relapse, deterioration or inappropriate behaviors and develop a plan to deal with those issues. 2. If your coping skills are ineffective and you are in crisis, contact your outpatient providers for direction. If unable to reach your providers, please call the [facility] CRISIS LINE AT , go to the [facility] walk-in center at [address], [address], [place], or go to the closest Emergency Room. 3. Avoid alcohol and un-prescribed drugs. 4. You have been provided with the Mental Health Advance Directives Pamphlet for your review. 5. Your condition is stable for transfer to [facility]. Ifthoughts to harm yourself or others return, follow the safety plan developed during your stay. WHO TO CALL AND WHEN: Medical Emergencies: For questions or emergencies related to your hospital stay, please contact the Inpatient Behavioral Health Unit at [phone]. A pre billing clinician is on-call 26/05 for the Behavioral Health Unit for emergencies At any time you feel your situation is an emergency, you may also call 911 immediately. Pending Studies at Discharge: No Stand-Alone Forms: My [facility] Medications and DC Order Prescriptions: Continued thiamine HCl (vitamin B1) 100 mg Tablet 200 mg PO BID RF: 0 omega-3 fatty acids Capsule 1,000 mg PO DAILY RF: 0 multivitamin with minerals Capsule 1 cap PO DAILY RF: 0 Discharge Orders: Discharge Order (Routine); Ordered 09/22/21 Ordered By: Melida Shipley Admission Data Admit Date/Time: 09/08/21 18:17 Attending Provider: Melida Shipley Admit Provider: Michelle Barton Primary Care Provider: [facility] Other Providers: Morgan Man ; Nila Fink ; Óscar Paredes ; Garland Guevara ; Donnie Nicholas ; Yunior Gamino ; Remigio Fields ; Oscar Toro ; Carlee Loera ; Thania Hinds ; Chuy Amador ; Kerri Guevara ; Jaqueline Gomez ; Leobardo Cooper ; Cameron Murillo ; Carrillo Sibley ; Nila Mcknight ; Kevin Mancia ; Leslie Dao ; Brody Myers ; Óscar Monteiro ; Mendez Viramontes ; Zulma Tom ; Becky Navarro ; Ted Ware ; Kerri Matson ; Wagner Barry ; Darryn Hagen ; Marvin Campuzano ; Conrado Varghese Other Interventions: PSY Interdisciplinary Discharge Planning Last Done: 09/13/21 13:20 Coding Level of Care Code 69919 D/C day mgmt > 30 min Diagnoses MDD (major depressive disorder), recurrent episode, moderate F33.1 Post traumatic stress disorder (PTSD) F43.10 Atypical eating disorder F50.9 Severe protein-calorie malnutrition E43 Bradycardia R00.1
--- NOTE | 2021-09-23 09:57 | Electrocardiogram Report ---
Test Reason : Blood Pressure : / mmHG Vent. Rate : 044 BPM Atrial Rate : 044 BPM P-R Int : 124 ms QRS Dur : 096 ms QT Int : 482 ms P-R-T Axes : 076 069 050 degrees QTc Int : 412 ms Marked sinus bradycardia Abnormal ECG When compared with ECG of 15-SEP-2021 11:57, No significant change was found Confirmed by Kaveh Celis ([id number]) on 09/23/2021 9:57:25 AM Referred By: Michelle Barton Confirmed By:Kaveh Celis
== END 2021-09-22 18:50 | DRG 885 ==
LOC: 3S 18:17 → SUATTDRO 18:17